=== PATIENT | female | born 1980 | race Caucasian/White ===

== ENCOUNTER 2017-07-05 15:50 | Outpatient (CLI) | payer BC, SELFPAY ==
[2017-06-04 21:39] VITALS: BP 110/70
[2017-07-05 15:30] VITALS: BP 122/75; BMI 33.7
[2017-07-05 16:26] VITALS: BMI 33.7
--- NOTE | 2017-07-06 13:00 | OB.TRI.NOTE ---
History of Present Illness Reason For Visit: R/O LABOR Date of Service: 07/05/17 Gestational age: 32 History of Present Illness: contractions Home Medications Medication Instructions Recorded Aspirin [Aspirin, Baby] 81 mg PO DAILY@0800 05/02/17 1 tab PO QDAY 05/06/17 vitamin,calcium,toraahug-oprk-xetom acid tablet Allergies hydrocodone Allergy (Mild, Verified 07/05/17 16:29) Nausea/Vom/Diarrhea povidone-iodine Allergy (Mild, Verified 07/05/17 16:29) Rash azithromycin [From Zithromax Z-Nadeem] Allergy (Verified 07/05/17 16:29) Upset Stomach Physical Exam Vitals: Vital Signs BP 122/75 H 07/05/17 15:30 NST - FHR Rate Baby A Baseline: 140 Variability:: Moderate Accelerations:: 15 x 15 Decelerations:: Variable NST Reactive:: Yes FHR Category:: Category I Uterine Activity:: q5-12 minutes Impression/Plan bedside gabriella 7.8 cm WNL reactive nst no cervical change or regular ctx recommend labor precautions and fu in office next week
--- NOTE | 2017-07-06 13:13 | OB.TRI.HP_ITS ---
History of Present Illness Reason For Visit: R/O LABOR Date of Service: 07/05/17 Gestational age: 32 History of Present Illness: contractions Home Medications Medication Instructions Recorded Aspirin [Aspirin, Baby] 81 mg PO DAILY@0800 05/02/17 1 tab PO QDAY 05/06/17 vitamin,calcium,xiecaytw-tubu-adedi acid tablet Allergies hydrocodone Allergy (Mild, Verified 07/05/17 16:29) Nausea/Vom/Diarrhea povidone-iodine Allergy (Mild, Verified 07/05/17 16:29) Rash azithromycin [From Zithromax Z-Nadeem] Allergy (Verified 07/05/17 16:29) Upset Stomach Physical Exam Vitals: Vital Signs BP 122/75 H 07/05/17 15:30 NST - FHR Rate Baby A Baseline: 140 Variability:: Moderate Accelerations:: 15 x 15 Decelerations:: Variable NST Reactive:: Yes FHR Category:: Category I Uterine Activity:: q5-12 minutes Impression/Plan bedside gabriella 7.8 cm WNL reactive nst no cervical change or regular ctx recommend labor precautions and fu in office next week
== END 2017-07-05 18:05 | disposition home or self-care (01) ==
LOC: WPOUT 15:58 → WP 15:59
PROVIDERS: Visit Provider Obstetrics & Gynecology
DX: O47.03 False labor before 37 completed weeks of gestation, third trimester (principal); Z3A.32 32 weeks gestation of pregnancy
CPT/HCPCS: 59050; 99218; G0378

== ENCOUNTER 2017-07-09 19:30 | Outpatient (CLI) | payer BC, SELFPAY ==
[2017-07-09 19:44] VITALS: BMI 34.1
[2017-07-09] MEDS: Dextrose 5%-Lactated Ringers 1,000 ML 999 ML IV (19:57)
[2017-07-09] MEDS: Betamethasone/Betamethasone 30 MG/5 ML Vial 12 MG IM (19:57)
[2017-07-09] MEDS: Terbutaline 1 MG/ML Vial 0.25 MG SC (20:22)
[2017-07-09 20:24] LABS: Fetal Fibronectin Negative; Record Kit Lot#, fFN J7025
[2017-07-09] MEDS: Dextrose 5%-Lactated Ringers 1,000 ML 200 ML IV ×2 (20:57→20:59)
[2017-07-09 21:01] LABS: Bacteria 0 SEEN /hpf (None Seen); Mucous, Urine 0 SEEN /hpf (<or=2+); Red Blood Cells-Urine 0 SEEN /hpf (0-5); White Blood Cells 0 SEEN /hpf (0-5)
[2017-07-09 21:02] LABS: Color, Urine Straw (Yellow); Glucose, Dipstick 1000 mg/dl (Normal); Ketone-Dipstick Negative (Negative); Leukocyte Esterase-Dipstick Negative /ul (Negative); Nitrite-Dipstick Negative (Negative); Occult Blood-Urine Negative /ul (Negative); Protein-Dipstick Negative (Negative); Urine Bilirubin Dipstick Negative (Negative); Urine Clarity Clear (Clear); Urine Urobilinogen Normal (Normal)
[2017-07-09 21:09] LABS: Squamous Epithelial Cells - UA 0-5 SEEN /hpf (5-10)
[2017-07-10] MEDS: Dextrose 5%-Lactated Ringers 1,000 ML 200 ML IV (01:53)
--- NOTE | 2017-07-10 06:43 | US_ITS ---
STUDY: SECOND AND THIRD TRIMESTER OBSTETRICAL ULTRASOUND - LIMITED REASON FOR EXAM: Female, 36 years old. Growth. LMP: November 19, 2016. PRIOR ULTRASOUND: April 04, 2017. TECHNIQUE: Transabdominal and transvaginal ultrasound evaluation was performed. FINDINGS: There is a single intrauterine fetus. The fetus is in a cephalic presentation. There is demonstrated cardiac activity with a heart rate of 139 bpm. There is a normal amniotic fluid volume. The largest amniotic fluid pocket measures 7.01 cm. The amniotic fluid index (MARCOS) is 14.6 cm. The placenta is fundal in location. There are Grade 0 placental changes. The cervix measures 4 cm in length. BIOMETRY: BPD: 8.12 cm: 32 weeks, 5 days HC: 31.17 cm: 35 weeks, 0 days AC: 31.06 cm: 35 weeks, 1 days FL: 6.52 cm: 33 weeks, 5 days Age by LMP: 33 weeks, 2 days. WALKER by LMP: August 26, 2017.. age by prior US: 33 weeks, 1 days. WALKER by prior US: August 27, 2017.. age by current US: 34 weeks, 1 days. WALKER by current US: August 20, 2017. Estimated weight: 2414 grams, +/- 352 grams, 75 percentile. US/OB Limited (No Biometrics) IMPRESSION: 1. Live single intrauterine of 34 weeks, 1 day. WALKER is August 20, 2017. This been adequate interval growth since the prior ultrasound. 2. EFW 2414 g. 3. MARCOS of 14.6 cm. 4. Fundal grade 0 placenta. 5. Vertex presentation. Electronically Signed: Saad Schumacher DO at 8:50 EST Tel [phone], Service support ,
[2017-07-10] MEDS: 0.9% NaCl Peripheral Flush Adult/Peds IV (07:10)
--- NOTE | 2017-07-10 19:58 | OB.TRI.NOTE ---
History of Present Illness Date of Service: 07/09/17 Was patient seen by the physician?: Yes Reason For Visit: R/O LABOR Date of Service: 07/09/17 Gestational age: 32 weeks History of Present Illness: 36 yo @ 34 weeks presents with reuglar contractions, no vb or lof, good fm, co diarrhea for a couple of hours. Home Medications Medication Instructions Recorded Aspirin [Aspirin, Baby] 81 mg PO DAILY@0800 05/02/17 1 tab PO QDAY 05/06/17 vitamin,calcium,akzjxpbx-mqfz-fuxqa acid tablet Allergies hydrocodone Allergy (Mild, Verified 07/09/17 20:28) Nausea/Vom/Diarrhea povidone-iodine Allergy (Mild, Verified 07/09/17 20:28) Rash azithromycin [From Zithromax Z-Nadeem] Allergy (Verified 07/09/17 20:28) Upset Stomach - Pertinent Past Medical History Pertinent Past Medical History: see history and problems tab NST - FHR Rate Baby A Baseline: 130-140 Variability:: Moderate Accelerations:: 10 x 10 Decelerations:: None NST Reactive:: Yes, Appropriate for gestational age FHR Category:: Category I Uterine Activity:: q2-5 then none Impression/Plan 36 yo @ 32 weeks presents with threatened ptl sto- no cervical change- 0 cm, recommend bmz since this is her second evaluation in less than a week.
--- NOTE | 2017-07-10 20:02 | OB.TRI.HP_ITS ---
History of Present Illness Date of Service: 07/09/17 Was patient seen by the physician?: Yes Reason For Visit: R/O LABOR Date of Service: 07/09/17 Gestational age: 32 weeks History of Present Illness: 36 yo @ 34 weeks presents with reuglar contractions, no vb or lof, good fm , co diarrhea for a couple of hours. Home Medications Medication Instructions Recorded Aspirin [Aspirin, Baby] 81 mg PO DAILY@0800 05/02/17 1 tab PO QDAY 05/06/17 vitamin,calcium,yxuyyojs-eaxi-rkcgr acid tablet Allergies hydrocodone Allergy (Mild, Verified 07/09/17 20:28) Nausea/Vom/Diarrhea povidone-iodine Allergy (Mild, Verified 07/09/17 20:28) Rash azithromycin [From Zithromax Z-Nadeem] Allergy (Verified 07/09/17 20:28) Upset Stomach - Pertinent Past Medical History Pertinent Past Medical History: see history and problems tab NST - FHR Rate Baby A Baseline: 130-140 Variability:: Moderate Accelerations:: 10 x 10 Decelerations:: None NST Reactive:: Yes, Appropriate for gestational age FHR Category:: Category I Uterine Activity:: q2-5 then none Impression/Plan 36 yo @ 32 weeks presents with threatened ptl sto- no cervical change- 0 cm, recommend bmz since this is her second evaluation in less than a week.
== END 2017-07-10 08:35 | disposition home or self-care (01) ==
LOC: WPOUT 19:42 → WP 19:43
PROVIDERS: Visit Provider Obstetrics & Gynecology
DX: O60.03 Preterm labor without delivery, third trimester (principal); O26.899 Other specified pregnancy related conditions, unspecified trimester; R19.7 Diarrhea, unspecified; Z3A.32 32 weeks gestation of pregnancy
CPT/HCPCS: 96360; 96361 ×10; 59025; 59050; 76815; 81001; 82731; 96372; 99218; A4216; G0378; J0702

== ENCOUNTER 2017-07-10 19:44 | Outpatient (CLI) | payer BC, SELFPAY ==
--- NOTE | 2017-07-10 19:56 | OB.TRI.NOTE ---
History of Present Illness Date of Service: 07/10/17 Reason For Visit: CELESTA SHOT Home Medications Medication Instructions Recorded Aspirin [Aspirin, Baby] 81 mg PO DAILY@0800 05/02/17 1 tab PO QDAY 05/06/17 vitamin,calcium,onmsnsxq-kbbr-lgulr acid tablet Allergies hydrocodone Allergy (Mild, Verified 07/09/17 20:28) Nausea/Vom/Diarrhea povidone-iodine Allergy (Mild, Verified 07/09/17 20:28) Rash azithromycin [From Zithromax Z-Nadeem] Allergy (Verified 07/09/17 20:28) Upset Stomach Impression/Plan celestone shot number two
[2017-07-10 20:01] VITALS: BMI 33.8
[2017-07-10] MEDS: Betamethasone/Betamethasone 30 MG/5 ML Vial 12 MG IM (20:08)
== END 2017-07-10 20:10 | disposition home or self-care (01) ==
LOC: WPOUT 19:44 → WP 19:45
PROVIDERS: Visit Provider Obstetrics & Gynecology
DX: O60.03 Preterm labor without delivery, third trimester (principal); Z3A.32 32 weeks gestation of pregnancy
CPT/HCPCS: 96372; 99218; G0378; J0702

== ENCOUNTER 2017-07-11 22:20 | Emergency (ER) | payer BC, SELFPAY ==
[2017-07-11 22:20] VITALS: BP 137/79; PULSE 78; RESP 18; TEMP 36.5; O2SAT 97; BMI 33.6
--- NOTE | 2017-07-11 22:55 | RAD_ITS ---
STUDY: X-RAY CHEST REASON FOR EXAM: Female, 36 years old. Chest pain TECHNIQUE: Single frontal view COMPARISON: None. FINDINGS: The lungs are clear and expanded. There is no demonstrated pleural abnormality. Prominent cardiac shadow. Normal mediastinum and jose a. Normal visualized pulmonary arteries. Normal visualized aortic arch and descending thoracic aorta. Normal visualized thoracic spine. Normal visualized ribs, clavicles, and shoulders. There is no demonstrated abnormality of the visualized soft tissue structures of the upper abdomen. RAD/Chest 1 View (Portable) IMPRESSION: Normal x-ray examination of the chest. Electronically Signed: Sixto Odom DO at 23:28 EST Tel [phone], Service support ,
--- NOTE | 2017-07-11 22:55 | EKG12_ITS ---
Test Reason : Blood Pressure : / mmHG Vent. Rate : 080 BPM Atrial Rate : 080 BPM P-R Int : 180 ms QRS Dur : 090 ms QT Int : 344 ms P-R-T Axes : 071 078 065 degrees QTc Int : 396 ms Normal sinus rhythm with sinus arrhythmia Normal ECG Confirmed by CAROL WONG, SHEREE ([id number]), health editor JHOAN HELM ([id number]) on 07/12/2017 1:45:21 PM Referred By: BIMAL Confirmed By:SHEREE MEDINA MD
[2017-07-11 23:02] VITALS: BP 117/69; PULSE 76; RESP 19; O2SAT 98
[2017-07-11 23:03] VITALS: O2SAT 98
[2017-07-11] MEDS: 0.9% Normal Saline 1,000 ML 150 ML IV (23:13)
[2017-07-11 23:33] LABS: Absolute Lymphocyte Count 1.37 X10^3/ul (0.83-4.51); Absolute Neutrophil Count 5.1 X10^3/uL (2.0-7.7); Basophil# 0.01 X10^3/uL; Basophil% 0.1 % (0-1); Hematocrit 35.6 % (37-47); Hemoglobin 11.9 g/dl (12.0-15.0); Lymphocyte # 1.37 X10^3/ul (4.0); Lymphocyte % 19.5 % (19-41); Mean Corp Hgb Conc 33.4 g/gl (32-36); Mean Corpuscular Hgb 29.8 pg (27.0-32.0); Mean Platelet Vol. 10.2 fl (6.2-12.0); Monocyte# 0.52 X10^3/uL; Monocyte% 7.4 % (0-10); Neutrophil # 5.11 X10^3/uL (2.7-7.7); Neutrophil % 72.9 % (47-70); Platelet Count 200 K/mm3 (150-450); RBC Distribution Width CV 13.1 % (11.6-14.6); RBC Distribution Width SD 41.2 fl (35.1-43.9)
[2017-07-11 23:36] LABS: POSITIVE COUNT NO; POSITIVE DIFFERENTIAL NO; POSITIVE MORPHOLOGY NO
[2017-07-12 00:01] LABS: Anion Gap 11 (5-15); BUN 13 mg/dL (7-18); BUN/Creat Ratio 24.8 RATIO (10-20); Calcium,Total 9.3 mg/dL (8.5-10.1); Chloride 109 mmol/L (98-107); Creatinine, Serum 0.52 mg/dL (0.55-1.02); EST Glomerular Filtration Rate 141 mL/min (>60); Est Glom Filt Rate - Afr Amer 171 mL/min (>60); Estimated Creatinine Clearance 148.24 ml/min; Glucose 110 mg/dL (74-106); Potassium 3.6 mmol/L (3.5-5.1); Sodium Level 143 mmol/L (136-145)
--- NOTE | 2017-07-12 00:19 | ED.DCSUM_ITS ---
- ER Visit Summary Date of Service: 07/12/17 Chief Complaint: Chest pain History of Present Illness: The patient is a 36 F who is currently 33 weeks . Patient reports having reflux symptoms all day and now has is across her upper chest and feels short of breath. She has no pleuritic pain. She is no prior cardiac history or history of PE. She is feeling appropriate movement. Physical Examination: Vital signs in triage include a blood pressure of 137/79. The time of my examination blood pressure is 118/76. Other vitals are normal. Head and neck examination is unremarkable. Heart is regular rate and rhythm. Lung sounds are clear with good air movement. Abdomen is soft and gravid. Patient has no significant ankle edema. Test Results: EKG is sinus 80 with no sign of acute ischemia. Portable chest x- ray is unremarkable. CBC was a white count that is normal and hemoglobin 11.9. Chemistry studies are unremarkable. Troponin is less than 0.02. Emergency Department Course and Treatment: Patient remained stable throughout her ER stay. On review of records I did note that she had gotten a Celestone shot the last 2 days. On repeat evaluation she is resting comfortably. She now states that her chest pain is corresponding to when she is having contractions. She had not mentioned having contractions previously. She now tells me that she was actually admitted overnight for observation 2 nights ago secondary to Barber Cano contractions. This led them to giving her the steroid shot to help the baby's lungs mature. I spoke with the patient's HURRICANE TRACKER , Dr. Rajesh Miles. Patient will be sent to labor and delivery for nonstress test. Treatment Plan: [] Disposition: Discharge Impression: Atypical chest pain 33 week This note was generated with [employer] dictation software. It may contain incorrect words, spelling, and punctuation that were not noted in review of the chart prior to signing ED Disposition - Plan for ED Patient: Disposition: Home or Assisted Living Chief Complaint: Chest Pain Instructions: ED Chest Pain NonCardiac Referrals: Reyna Farah MD [STAFF PHYSICIAN] -
[2017-07-12 00:36] VITALS: BP 135/85; PULSE 82; RESP 16; O2SAT 98
== END 2017-07-12 00:37 | disposition home or self-care (01) ==
PROVIDERS: Emergency Provider Emergency Medicine
DX: O99.89 Other specified diseases and conditions complicating pregnancy, childbirth and the puerperium (principal); R07.89 Other chest pain; Z3A.33 33 weeks gestation of pregnancy; Z87.891 Personal history of nicotine dependence
CPT/HCPCS: 71045; 80048; 84484; 85025; 93005; 96360; 99284; J7030; A4216

== ENCOUNTER 2017-07-12 00:42 | Outpatient (CLI) | payer BC, SELFPAY ==
[2017-07-12 01:13] VITALS: BMI 34.0
[2017-07-12 01:26] VITALS: BP 136/67; PULSE 66; RESP 16; TEMP 36.6; O2SAT 98
--- NOTE | 2017-07-19 06:35 | OB.TRI.NOTE ---
History of Present Illness Date of Service: 07/12/17 Was patient seen by the physician?: No Reason For Visit: R/O LABOR Date of Service: 07/12/17 Gestational age: 33 weeks History of Present Illness: patient presented with regular ctx and increased pelvic pressure Home Medications Medication Instructions Recorded Aspirin [Aspirin, Baby] 81 mg PO DAILY@0800 05/02/17 1 tab PO QDAY 05/06/17 vitamin,calcium,haspfrem-axiw-ohfvd acid tablet Allergies hydrocodone Allergy (Mild, Verified 07/12/17 01:13) Nausea/Vom/Diarrhea povidone-iodine Allergy (Mild, Verified 07/12/17 01:13) Rash azithromycin [From Zithromax Z-Nadeem] Allergy (Verified 07/12/17 01:13) Upset Stomach Physical Exam Vitals: Vital Signs Temp Pulse Resp BP Pulse Ox 97.8 F 66 16 136/67 H 98 07/12/17 01:26 07/12/17 01:26 07/12/17 01:26 07/12/17 01:26 07/12/17 01:26 NST - FHR Rate Baby A Baseline: 140-150 Variability:: Moderate Accelerations:: 15 x 15 Decelerations:: None NST Reactive:: Yes FHR Category:: Category I Uterine Activity:: q 2-5 and then irregular, irritability Impression/Plan threatened PTL- no cervical change dc home labor precautions
== END 2017-07-12 01:35 | disposition home or self-care (01) ==
LOC: WPOUT 01:05 → WP 01:06
PROVIDERS: Visit Provider Obstetrics & Gynecology
DX: O60.03 Preterm labor without delivery, third trimester (principal); Z3A.33 33 weeks gestation of pregnancy
CPT/HCPCS: 59025; 59050; 99218; G0378

== ENCOUNTER → 2017-08-02 14:25 | Outpatient (CLI) | payer BC, SELFPAY ==
--- NOTE | 2017-08-02 15:03 | US_ITS ---
STUDY: SECOND AND THIRD TRIMESTER OBSTETRICAL ULTRASOUND - LIMITED REASON FOR EXAM: Female, 36 years old. growth. LMP: November 19, 2016. PRIOR ULTRASOUND: OB ultrasound July 10, 2017. TECHNIQUE: Transabdominal and transvaginal ultrasound evaluation was performed. FINDINGS: There is a single intrauterine fetus. The fetus is in a cephalic presentation. There is demonstrated cardiac activity with a heart rate of 143 bpm. There is a normal amniotic fluid volume. The largest amniotic fluid pocket measures 4.9 cm. The amniotic fluid index (MARCOS) is 14.8 cm. The placenta is posterior in location and is not low lying. There are Grade 1 placental changes. The cervix measures 4.42 cm in length and is closed. BIOMETRY: BPD: 8.89 cm 36 weeks, 0 days HC: 32.23 cm: 36 weeks, 3 days AC: 34.11 cm: 38 weeks, 1 days FL: 7.06 cm: 36 weeks, 2 days CI: 80% FL/BPD: 79% FL/AC: 41% HC/AC: 0.94 Age by LMP: 36 weeks, 4 days. WALKER by LMP: August 26, 2017. age by prior US: 37 weeks, 3 days. WALKER by prior US: August 20, 2017. age by current US: 36 weeks, 5 days. WALKER by current US: August 25, 2017. Estimated weight: 3133 grams, +/- 458 grams, 70 percentile. US/OB Limited With Biometrics IMPRESSION: 1. Single living intrauterine fetus in cephalic presentation showing expected interval growth since previous study. 2. Estimated gestational age today is 36 weeks, 5 days, with estimated date of delivery of August 25, 2017. 3. Estimated weight is 3133 g. 4. Normal amniotic fluid volume with an index of 14.8 cm. 5. Grade 1 posterior placenta is not low-lying. 6. The cervix is closed. Cervical length is 4.42 cm. Electronically Signed: Jg Brand MD at 20:09 EST , Service support ,
== END ==
PROVIDERS: Visit Provider Obstetrics & Gynecology
DX: O09.292 Supervision of pregnancy with other poor reproductive or obstetric history, second trimester (principal); Z3A.00 Weeks of gestation of pregnancy not specified; Z87.59 Personal history of other complications of pregnancy, childbirth and the puerperium
CPT/HCPCS: 76816

== ENCOUNTER 2017-08-05 01:32 | Inpatient (IN) | payer BC, SELFPAY ==
[2017-08-04 22:27] VITALS: BMI 35.8
[2017-08-04] MEDS: Sodium Citrate/Citric Acid 30 ML UDC PO (22:59)
[2017-08-05] VITALS (21 sets, daily range): BP systolic 121–148; BP diastolic 33–89; PULSE 53–80; RESP 15–58; TEMP 36.1–36.9; O2SAT 95–100
[2017-08-05] MEDS: Lactated Ringers 1,000 ML 999 ML IV (01:15)
[2017-08-05 01:46] LABS: Hematocrit 36.2 % (37-47); Hemoglobin 12.4 g/dl (12.0-15.0); Mean Corp Hgb Conc 34.3 g/gl (32-36); Mean Corpuscular Hgb 29.3 pg (27.0-32.0); Mean Corpuscular Volume 85.6 fL (81-99); Mean Platelet Vol. 11.6 fl (6.2-12.0); Platelet Count 172 K/mm3 (150-450); RBC Distribution Width CV 12.9 % (11.6-14.6); RBC Distribution Width SD 39.2 fl (35.1-43.9); Red Blood Count 4.23 M/mm3 (4.2-5.4); White Blood Count 6.9 K/mm3 (4.4-11.0)
[2017-08-05 01:50] LABS: International Normalized Ratio 0.9; Prothrombin Time (Protime)PT. 11.9 SECONDS (11.7-14.9)
[2017-08-05 01:51] LABS: Partial Thromboplast Time 21.2 Seconds (24.1-36.2)
[2017-08-05 02:08] LABS: Neutrophil % 68.1 % (47-70); POSITIVE COUNT NO; POSITIVE DIFFERENTIAL NO; POSITIVE MORPHOLOGY NO
[2017-08-05 02:09] LABS: AST(SGOT) 20 U/L (15-37); Absolute Lymphocyte Count 1.62 X10^3/ul (0.83-4.51); Absolute Neutrophil Count 4.6 X10^3/uL (2.0-7.7); Alanine Aminotransfer ALT/SGPT 12 U/L (13-56); Basophil# 0.01 X10^3/uL; Basophil% 0.1 % (0-1); Creatinine, Serum 0.54 mg/dL (0.55-1.02); EST Glomerular Filtration Rate 135 mL/min (>60); Eosinophil# 0.01 X10^3/uL; Eosinophils% 0.1 % (0-5); Est Glom Filt Rate - Afr Amer 164 mL/min (>60); Estimated Creatinine Clearance 142.75 ml/min; Lymphocyte # 1.62 X10^3/ul (4.0); Monocyte# 0.52 X10^3/uL; Monocyte% 7.7 % (0-10); Neutrophil # 4.58 X10^3/uL (2.7-7.7); Uric Acid 5.4 mg/dL (2.6-6.0)
[2017-08-05] MEDS: Lactated Ringers 1,000 ML 150 ML IV (02:44)
--- NOTE | 2017-08-05 03:07 | PCM.HP.OB ---
- Problem List (1) Gestational hypertension Status: Acute (2) Active labor at term Status: Acute History Date of Admission: 08/05/17 Final WALKER: 08/26/17 Gestational age: 37 Weeks and 0 Days History of this : 36 yo G Pertinent Past Medical History: PMH: negative PSH: csection x 3 prenatals: Hep B neg rpr nr cbc normal RI HIV neg Allergies hydrocodone Allergy (Mild, Verified 08/04/17 22:28) Nausea/Vom/Diarrhea povidone-iodine Allergy (Mild, Verified 08/04/17 22:28) Rash azithromycin [From Zithromax Z-Nadeem] Allergy (Verified 08/04/17 22:28) Upset Stomach Current Medications Citric Acid/Sodium Citrate (Bicitra) 30 ml PO UD MARGARETTE Lactated Ringer's () 1,000 mls @ 150 mls/hr IV .Q6H40M MARGARETTE Last Admin: 08/05/17 02:44 Dose: 150 mls/hr Lactated Ringer's () 1,000 mls @ 999 mls/hr IV .Q1H1M MARGARETTE PRN Reason: Wide Open Stop: 08/05/17 03:35 Sodium Chloride () 0 ml IV UD MARGARETTE Smoking Status: Never smoker Alcohol: None Drug Use: none Number of Fetus(es): 1 - fht 140s moderate variability toco q2-4 Review of Systems Constitutional: Denies: Chills, Fever, Weight Change HEENT: Denies: Head Aches, Sinus Congestion, Sinus Drainage Cardiovascular: Denies: Chest Pain, Palpitations Respiratory: Denies: Cough, Sputum production Gastrointestinal: Reports: Abdominal Pain. Denies: Nausea, Vomiting Genitourinary: Denies: Dysuria Musculoskeletal: Denies: Joint Pain, Joint Tenderness Skin: Denies: Rash, Wounds Neurological: Denies: Numbness, Tingling, Focal weakness Psychiatric: Denies: Anxiety, Depression, Homicidal Ideations, Suicidal Ideations Hematologic/ Lymphatic: Denies: Easy Bruising, Easy Bleeding Physical Exam General: Alert, Oriented x3, No apparent distress Cardiovascular: Regular rate Lungs: Normal air movement Abdomen: Soft, Gravid, Appropriate for Gestational Age Estimated gestational size: Appropriate for gestational size Presentation: Cephalic Cervix Dilation (cm): 1 Station: -2 Effacement (%): 50 Assessment/Plan Active and Suspected Problems (Last Reviewed 07/29/17 @ 08:06 by Elham Reynaga) Gestational hypertension (Acute) Active labor at term (Acute) 36 yo 37 weeks IAL GHTN elevated bps- normal labs. regular ctx and uncomfortable. plan repeat csection now.
[2017-08-05] MEDS: Sodium Citrate/Citric Acid 30 ML UDC PO (03:33)
--- NOTE | 2017-08-05 03:43 | OP.PCM_ITS ---
Problem List (1) Gestational hypertension Status: Acute (2) Active labor at term Status: Acute Report of Operation Date of Procedure: 08/05/17 Pre-Operative Diagnosis: ial ghtn previous cs x 3 Surgery/Procedure Performed:: RLTCS Description of Surgical Findings:: Normal scar tissue normal uterus tubes and ovaries drafter apprentice: Shilpa Gutierrez Type of Anesthesia:: Spinal Specimen's removed: female infant in vertex presentation Drains: recinos Estimated Blood Loss (mL): 800 Fluids Replaced: crystalloid Description of Procedure: The patient is a presented at 37 weeks with regular contractions the blood pressures with history of 3 previous C-sections declining wanting a repeat . Spinal anesthesia was placed without difficulty. Recinos catheter was placed. The patient was placed in the dorsal supine position with leftward tilt. Patient was prepped and draped in the normal sterile fashion. Pfannenstiel skin incision was made with the scalpel and carried through to the underlying layer of fascia with the scalpel. Fascia was nicked in the midline and the incision extended laterally. The rectus bellies were dissected off superiorly and inferiorly with out complication both sharply and bluntly. The peritoneum was entered digitally. The incision was stretched and a low transverse uterine incision was made with the scalpel. The 's head was delivered atraumatically followed by the anterior and posterior shoulders without complication the rest of the infant delivered. The cord was clamped and cut and the infant was handed off to awaiting nurse. The placenta was delivered spontaneously immediately following and was noted to be intact and have a three-vessel cord. The uterus was exteriorized cleared of all clots and debris, and the incision was closed in a single layer closure using #1 Monocryl. An additional djzuun-hb-qwzac suture was placed on the right ankle to obtain hemostasis. The uterus was returned to the maternal abdomen and gutters were cleared of all clots and debris. The ovaries and fallopian tubes were noted to be within normal limits. The peritoneum was closed with 3-0 Monocryl in a running fashion. Alexis was placed over the inferior aspect of the rectus bellies over the pyramidalis muscle due to some superficial raw appearance. Excellent hemostasis was noted. Fascia was closed with 0 PDS in a running fashion. Subcutaneous tissue was copiously irrigated and the skin was closed with 3-0 Monocryl in a subcuticular fashion. Mepilex dressing was applied without complication. Patient was taken to recovery in stable condition. Grafts/Implants Used: none - Complications none
[2017-08-05] MEDS: Cefazolin 2 GM in 0.9% Normal Saline 100 ML IV (03:50)
[2017-08-05] MEDS: Oxytocin 30 units/NS 500 ml 30 UNITS/500 ML IV.SOLN 167 UNITS IV (04:12)
[2017-08-05 04:36] LABS: Protein, Urine (Random) 24.6 mg/dL (<11.9); Protein:Creat Ratio 284 mg/g CRE (0-200)
[2017-08-05] MEDS: Lactated Ringers 1,000 ML 100 ML IV ×2 (05:00→07:17)
[2017-08-05] MEDS: Ketorolac 30 MG/ML Syringe IV ×3 (06:08→17:50)
[2017-08-05] MEDS: 0.9% Saline Lock 10 ML Syringe IV (06:08)
[2017-08-05] MEDS: Senna/Docusate Sodium 1 Tablet PO (10:45)
--- NOTE | 2017-08-05 13:20 | NURSING ---
1200 pt oob up to chair pt gait steady pt tolerated well
--- NOTE | 2017-08-05 16:15 | NURSING ---
pt up to walk
[2017-08-05] MEDS: Prenatal Vits Tablet 1 TABLET PO (17:51)
[2017-08-06] VITALS: BP 141/89; PULSE 65; RESP 18; TEMP 36.4; O2SAT 96
[2017-08-06 02:00] VITALS: RESP 16; O2SAT 94
[2017-08-06 04:15] VITALS: BP 124/89; PULSE 101; RESP 18; TEMP 36.4; O2SAT 97
[2017-08-06] MEDS: Acetaminophen 500 MG Tablet 1000 MG PO (04:41)
[2017-08-06 04:43] LABS: Hemoglobin 11.1 g/dl (12.0-15.0); Mean Corp Hgb Conc 33.6 g/gl (32-36); Mean Corpuscular Hgb 29.4 pg (27.0-32.0); Mean Corpuscular Volume 87.5 fL (81-99); Mean Platelet Vol. 10.1 fl (6.2-12.0); Platelet Count 160 K/mm3 (150-450); RBC Distribution Width CV 13.2 % (11.6-14.6); RBC Distribution Width SD 40.1 fl (35.1-43.9); Red Blood Count 3.77 M/mm3 (4.2-5.4); White Blood Count 8.2 K/mm3 (4.4-11.0)
[2017-08-06 04:50] LABS: Scan Indicated on CBC? Y/N NO
[2017-08-06] MEDS: Ketorolac 30 MG/ML Syringe IV ×2 (06:01)
[2017-08-06] MEDS: 0.9% Saline Lock 10 ML Syringe IV ×2 (06:01)
--- NOTE | 2017-08-06 08:12 | PCM.PN.OB ---
Patient Problems: Active and Suspected Problems (Last Reviewed 07/29/17 @ 08:06 by Elham Reynaga) Gestational hypertension (Acute) Active labor at term (Acute) Subjective: doing well no complaints, pain controlled - Physical Exam General: Alert, Oriented x3 Vital Signs Temp Pulse Resp BP Pulse Ox 97.6 F L 101 H 18 124/89 H 97 08/06/17 04:15 08/06/17 04:15 08/06/17 04:15 08/06/17 04:15 08/06/17 04:15 Oxygen Delivery Method Room Air Weight: 228 lb 13.437 oz Body Mass Index (BMI) 35.8 Intake and Output for Last 24 Hours 08/04/17 08/05/17 08/06/17 23:59 23:59 23:59 Intake Total 5375 / 5375 Output Total 1900 / 1900 Balance 3475 / 3475 Laboratory Tests Past 24 Hrs 08/06/17 04:35 WBC 8.2 RBC 3.77 L Hgb 11.1 L Hct 33.0 L MCV 87.5 MCH 29.4 MCHC 33.6 RDW 13.2 RDW Differential 40.1 Plt Count 160 MPV 10.1 Assessment/Plan Active and Suspected Problems (Last Reviewed 07/29/17 @ 08:06 by Elham Reynaga) Gestational hypertension (Acute) Active labor at term (Acute) s/p RLTCS GHTN IAL routine care doing well, mildly elevated bp continue to monitor
[2017-08-06] MEDS: Senna/Docusate Sodium 1 Tablet PO (09:10)
[2017-08-06] MEDS: oxyCODONE 5 MG Tablet PO ×4 (09:10→21:00)
[2017-08-06] MEDS: Prenatal Vits Tablet 1 TABLET PO (09:10)
[2017-08-06 10:00] VITALS: BP 124/65; PULSE 80; RESP 16; TEMP 36.6
[2017-08-06] MEDS: Naproxen 250 MG Tablet PO ×2 (14:16→23:39)
[2017-08-06 18:00] VITALS: BP 124/74; PULSE 91; RESP 16; TEMP 37
[2017-08-06 20:50] VITALS: BP 133/88; PULSE 73; RESP 18; TEMP 36.8; O2SAT 98
[2017-08-07 03:30] VITALS: BP 148/91; PULSE 85; RESP 18; TEMP 36.5; O2SAT 98
[2017-08-07] MEDS: oxyCODONE 5 MG Tablet PO ×5 (03:46→23:12)
[2017-08-07 09:20] VITALS: BP 135/67; PULSE 80; RESP 20; TEMP 36.8; O2SAT 98
[2017-08-07] MEDS: Senna/Docusate Sodium 1 Tablet PO (09:32)
--- NOTE | 2017-08-07 10:28 | PCM.PN.OB ---
Patient Problems: Active and Suspected Problems (Last Reviewed 07/29/17 @ 08:06 by Elham Reynaga) Gestational hypertension (Acute) Active labor at term (Acute) Subjective: doing welln ocomplaints - Physical Exam General: Alert, Oriented x3 Vital Signs Temp Pulse Resp BP Pulse Ox 97.7 F L 85 18 148/91 H 98 08/07/17 03:30 08/07/17 03:30 08/07/17 03:30 08/07/17 03:30 08/07/17 03:30 Oxygen Delivery Method Room Air Weight: 228 lb 13.437 oz Body Mass Index (BMI) 35.8 Intake and Output for Last 24 Hours 08/05/17 08/06/17 08/08/17 23:59 23:59 00:59 Intake Total 5375 / 5375 Output Total 1900 / 1900 600 / 600 Balance 3475 / 3475 -600 / -600 Assessment/Plan Active and Suspected Problems (Last Reviewed 07/29/17 @ 08:06 by Elham Reynaga) Gestational hypertension (Acute) Active labor at term (Acute) s/p RLTCS GHTN IAL routine care doing well, mildly elevated bp continue to monitor
[2017-08-07] MEDS: Naproxen 250 MG Tablet PO ×2 (11:18→21:16)
[2017-08-07] MEDS: Prenatal Vits Tablet 1 TABLET PO (11:18)
[2017-08-07 15:55] VITALS: BP 118/79; PULSE 77; RESP 20; TEMP 36.9; O2SAT 98
[2017-08-07 20:00] VITALS: BP 143/91; PULSE 76; RESP 15; TEMP 37.1; O2SAT 99
[2017-08-08 02:00] VITALS: PULSE 70; RESP 17; TEMP 37.2
[2017-08-08] MEDS: oxyCODONE 5 MG Tablet PO ×2 (03:07→08:22)
[2017-08-08 08:00] VITALS: BP 131/89; PULSE 78; RESP 16; TEMP 36.9; O2SAT 98
--- NOTE | 2017-08-08 08:07 | DCINST_ITS ---
Discharge Diet: No Restrictions Discharge Activity: May Not Drive - for 2 weeks, May not drive while taking narcotic pain medications., May Shower, May Take a Tub Bath - in 7 days May resume sexual activity in: 4-6 weeks Lifting Restrictions: 20 pounds Additional Activity Instructions:: Nothing in the vagina for 4-6 weeks. You may return to work/school in 6 weeks. Call your doctor if your incision/area has: Continuous Slow Oozing, Sudden Increased Bleeding, Increased Pain/ Swelling, Increased Redness, Foul Smelling Discharge Call your doctor if you observe: Fever of 101 or Higher, Using more than one pad per hour - for 2 hours Suture Line Care: Avoid Pulling/Pushing, Avoid Pinching/Bending Cleanse incision/area with: Keep Dressing Clean & Dry Additional Instructions: If you experience any of the following, contact your healthcare provider. * Bleeding that soaks a pad every hour for 2 hours * Fever 100.4 or higher * Unrelieved incision or abdominal pain * Swelling, redness, discharge or bleeding from your incision or episiotomy site * Your incision begins to separate * Problems urinating (including inability to urinate or burning while urinating) . * Visual changes * Severe headache * Flu-like symptoms * Pain or redness in one of both of your breasts * Pain, warmth, tenderness or swelling in your legs, especially the calf area * Frequent nausea and vomiting * Symptoms of depression or anxiety If you experience any of the following, call 911 or go to the nearest Emergency Room. * Chest pain * Problems breathing * Seizure activity * Partial or complete paralysis of a body part, slurred speech, weakness or drooping of the face, or a sudden inability to walk or hold your balance Allergies/Adverse Reactions: Allergies hydrocodone Allergy (Mild, Verified 08/04/17 22:28) Nausea/Vom/Diarrhea povidone-iodine Allergy (Mild, Verified 08/04/17 22:28) Rash azithromycin [From Zithromax Z-Nadeem] Allergy (Verified 08/04/17 22:28) Upset Stomach Medications to take at Discharge vitamin,calcium,ujtwhpfy-zghs-igzmg acid tablet 1 tab PO QDAY 05/06/17 Ibuprofen [Motrin] 600 mg PO Q6H PRN PRN #30 tab 08/08/17 Naproxen [Naprosyn] 250 - 500 mg PO Q8H PRN PRN #30 tab 08/08/17 Oxycodone HCl/Acetaminophen [Percocet 5-325] 2 tablet PO Q4H PRN PRN 7 Days #28 tablet 08/08/17 The following prescriptions were given: Oxycodone HCl/Acetaminophen [Percocet 5-325] 2 tablet PO Q4H PRN PRN 7 Days #28 tablet PRN Reason: Moderate-Severe pain Ibuprofen [Motrin] 600 mg PO Q6H PRN PRN #30 tab PRN Reason: Pain Naproxen [Naprosyn] 250 - 500 mg PO Q8H PRN PRN #30 tab PRN Reason: MILD PAIN Orders to be completed after discharge: Electric breast pump Location: None Selected Follow-Up: Call to make an appointment with your doctor for an incision check in 1-2 weeks. You will also need a 6 week post- follow up appointment. Please Follow Up With: Reyna Farah MD - Call to make an appointment for an incision check in 1-2 [phone] When: You will need a post- check in 6 weeks. Primary Care Physician: Care Physician,No Primary [Primary Care Provider] -
[2017-08-08] MEDS: Senna/Docusate Sodium 1 Tablet PO (08:22)
[2017-08-08 09:30] VITALS: BP 131/89; PULSE 78; RESP 16; TEMP 36.9; O2SAT 98
--- NOTE | 2017-08-11 08:23 | PCM.DC.BLA ---
Discharge Summary Date of Admission: 08/05/17 Date of Discharge: 08/08/17 Summary: Discharge diagnosis: Repeat Procedure: [facility] Hospital course: Patient was admitted for a repeat low transverse secondary to gestational hypertension new onset and regular contractions with 3 previous C-sections. Patient underwent a uncomplicated and routine recovery with a return of bowel and bladder function. She was ambulating well, tolerating p.o. and had adequate pain control with oral medications and was stable for discharge to home on postop day #3. Discharge instructions: Routine post instructions Discharge medications: Motrin, Percocet Diet: Regular Follow-up: Follow-up in 2 weeks for incision check in 6 weeks for visit Complications: None
== END 2017-08-08 09:30 | disposition home or self-care (01) | DRG 766 ==
LOC: WPOUT 01:37
PROVIDERS: Admitting Provider Obstetrics & Gynecology; Visit Provider Obstetrics & Gynecology
DX: O34.211 Maternal care for low transverse scar from previous cesarean delivery (principal); K21.9 Gastro-esophageal reflux disease without esophagitis; O13.4 Gestational [pregnancy-induced] hypertension without significant proteinuria, complicating childbirth; O99.62 Diseases of the digestive system complicating childbirth; Z37.0 Single live birth; Z3A.37 37 weeks gestation of pregnancy
CPT/HCPCS: 59025; 59050; 82565; 82570; 84156; 84450; 84460; 84550; 85025; 85027; 85610; 85730; 86850; 86900; 99218; J7120; A4216; G0378

== ENCOUNTER 2017-10-08 10:37 | Outpatient (CLI) | payer BC, SELFPAY | END 2017-10-08 11:05 | disposition home or self-care (01) | LOC: WPOUT 10:38 → WP 10:40 | PROVIDERS: Visit Provider Obstetrics & Gynecology | DX: Z39.1 Encounter for care and examination of lactating mother (principal) | CPT/HCPCS: 96152 ==

== ENCOUNTER 2017-10-19 10:28 | Outpatient (CLI) | payer BC, SELFPAY | END 2017-10-19 10:45 | disposition home or self-care (01) | LOC: WPOUT 10:29 → WP 10:29 | PROVIDERS: Visit Provider Obstetrics & Gynecology | DX: Z39.1 Encounter for care and examination of lactating mother (principal) | CPT/HCPCS: 96152 ==

== ENCOUNTER 2018-04-27 10:26 | Day surgery (SDC) | payer BC, SELFPAY ==
[2018-04-27] VITALS (7 sets, daily range): BP systolic 98–123; BP diastolic 58–81; PULSE 59–91; RESP 16; TEMP 36.4–36.8; O2SAT 59–100; BMI 28.8
--- NOTE | 2018-04-27 05:39 | PCM.HP.STD ---
Problem List (1) Edilberto duct, cyst Status: Chronic Comment: plan removal History of Present Illness Date of Admission: 04/27/18 Chief Complaint: vaginal cyst The patient is a 37 year old F presents for removal of vaginal edilberto's duct cyst. she has had it present for years on the left vaginal wall and is ready to have it removed now. she has vaginal discomfort from it intermittently and does have some chronic discharge from it also. Past Medical History Past Medical History (Chronic Problems): Chronic Problems (Last Reviewed 02/08/18 @ 11:58 by Sachi Canales) Edilberto duct, cyst (Chronic) plan removal Medical History: Medical History (Last Reviewed 02/08/18 @ 11:58 by Sachi Canales) Allergies povidone-iodine Allergy (Mild, Verified 04/21/18 09:00) Rash hydrocodone Adverse Reaction (Mild, Verified 04/21/18 09:01) Nausea/Vom/Diarrhea azithromycin [From Zithromax Z-Nadeem] Adverse Reaction (Verified 04/26/18 07:37) Upset Stomach Home Medications: Ambulatory Orders Medication Instructions Recorded NK 02/08/18 Surgical History: Surgical History (Last Reviewed 02/08/18 @ 11:58 by Sachi Canales) History of appendectomy Z90.49 ankle surgery knee Smoking Status: Former smoker Tobacco Use: Non-smoker Alcohol: None Drugs: None Review of Systems Constitutional: Denies: Fever, Malaise Eyes: Denies: Blurred vision, Vision Change HEENT: Denies: Head Aches, Visual Changes Cardiovascular: Denies: Chest Pain, Palpitations Respiratory: Denies: Cough, Shortness of Breath, Wheezing Gastrointestinal: Denies: Abdominal Pain, Diarrhea, Nausea, Vomiting Genitourinary: Denies: Dysuria, Hematuria Musculoskeletal: Denies: Joint Pain, Muscle pain Skin: Denies: Lesions, Rash Neurological: Denies: Blurred vision, Focal weakness, Headaches Psychiatric: Denies: Anxiety, Depression Endocrine: Denies: Heat/ Cold Intolerance Hematologic/ Lymphatic: Denies: Easy Bruising, Easy Bleeding VTE Information - Inpt Only VTE Present on Admission: No - Physical Exam General: Alert, Oriented x3 HEENT: Atraumatic, Normocephalic Oral: Moist Mucosa Neck: Supple, Thyroid Normal Size and Texture Lungs: Normal air movement Cardiovascular: Regular rate, Regular Rhythm Abdomen: Soft, Non Tender Extremities: No edema Skin: No rashes, No breakdown 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 discussed risks of bleeding or infection. plan proceeding with surgery.
[2018-04-27 10:56] LABS: Internal QC Validated? YES +Cl - CLEAR BKGD; Pregnancy, Urine Negative Negative
[2018-04-27 11:03] LABS: Hematocrit 44.7 % (37-47); Hemoglobin 14.8 g/dl (12.0-15.0); Mean Corp Hgb Conc 33.1 g/gl (32-36); Mean Corpuscular Hgb 29.1 pg (27.0-32.0); Mean Platelet Vol. 9.7 fl (6.2-12.0); Platelet Count 236 K/mm3 (150-450); RBC Distribution Width CV 12.5 % (11.6-14.6); Red Blood Count 5.08 M/mm3 (4.2-5.4)
[2018-04-27 11:06] LABS: Scan Indicated on CBC? Y/N NO
--- NOTE | 2018-04-27 12:00 | VAGW_PTH ---
PATIENT: ALAN COLUNGA LOC: [facility] [place] U#:[id number] AGE/SX: 37/F ROOM: RE04/27/[address]: Dr. 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 SJ:sophie 05/01/18 COMMENT Case has been reviewed in consultation with Dr. Cates who concurs with the above diagnosis. IDC:AM MICROSCOPIC DESCRIPTION Slides are reviewed. GROSS DESCRIPTION Received in fixative is one container labeled with the patient's name and designated lateral vaginal cyst wall. The specimen consists of four variable sized pieces of fermin soft tissue measuring in aggregate 3.5 x 2.5 x 0.5 cm. The largest piece is serially sectioned. The entire specimen is submitted in two cassettes. / SJ:rg 04/28/18 TC:5 CPT: 74615
--- NOTE | 2018-04-27 12:43 | PCM.OPRPT ---
Problem List (1) Edilberto duct, cyst Status: Chronic Comment: plan removal Report of Operation Date of Procedure: 04/27/18 Pre-Operative Diagnosis: edilberto's duct cyst Post-Operative Diagnosis: same Surgery/Procedure Performed:: removal of edilberto's duct cyst Description of Surgical Findings:: left collapsed edilberto's duct cyst maintenance department manager: Shilpa Gutierrez maintenance department manager: Junie Hennessy Type of Anesthesia:: General Specimen's removed: edilberto's duct cyst Drains: recinos Estimated Blood Loss (mL): 150 Fluids Replaced: crystalloid Description of Procedure: patient placed under general anesthesia. she was prepped and draped in the usual sterile fashion in the dorsal supine position. left cyst was identified and the area injected iwth marcaine, and then longitudinal vaginal incision was made and the edilberto's duct cyst wall was sharply and bluntly dissected away from the vaginal side wall. recinos catheter in place to maintain good anatomic landmarks. after the cyst wall was rmoved as completley as possible, the defect was closed with figure of 8 2-0 vicryl sutures and the vaginal mucosa reapporximated with 2-0 vicryl. patient was awoken and taken to recovery with the cath removed. Grafts/Implants Used: none - Complications none - Admit VTE Documentation VTE Present on Admission: No VTE Mechan Device Prophylaxis: SCD's VTE Pharm Prophylaxis ordered?: No
--- NOTE | 2018-04-27 12:47 | DCINST_ITS ---
Discharge Diet: No Restrictions Discharge Activity: Return to Normal Activity, May Shower May resume sexual activity in: 4-6 weeks Allergies/Adverse Reactions: Allergies povidone-iodine Allergy (Mild, Verified 04/21/18 09:00) Rash hydrocodone Adverse Reaction (Mild, Verified 04/21/18 09:01) Nausea/Vom/Diarrhea azithromycin [From Zithromax Z-Nadeem] Adverse Reaction (Verified 04/26/18 07:37) Upset Stomach Medications to take at Discharge Naproxen [Naprosyn] 250 - 500 mg PO Q8H PRN PRN #30 tablet 04/27/18 The following prescriptions were given: Naproxen [Naprosyn] 250 - 500 mg PO Q8H PRN PRN #30 tablet PRN Reason: MILD PAIN Orders to be completed after discharge: ,Urine Time Frame: 04/27/18, Location: Laboratory Primary Care Physician: Care Physician,No Primary [Primary Care Provider] - Test Results: Test results from this visit will be discussed in further detail at your follow- up appointment, if applicable. Please Follow Up With: Reyna Farah MD - [phone]
[2018-04-27] MEDS: Bupiv/Epi 0.5% Mpf 30 ML Vial (12:53)
--- OUTSIDE RECORDS SUMMARY | 2018-06-22 12:28 | XMS RPT_ITS ---
:1980 Author Organization [facility] Support Name Relationship Address Phone [facility] [place] Unavailable [address] + [place] [address] JANIS PRESSLEY Unavailable [address] + [place] [address] JMSM Unavailable [address] + [place] [address] JANIS PRESSLEY Unavailable [address] + [place] [address] JANIS PRESSLEY Unavailable [address] + [place] [address] JANIS PRESSLEY Unavailable [address] + [place] [address] JANIS PRESSLEY Unavailable [address] + [place] [address] JMSM Unavailable [address] + [place] [address] JANIS PRESSLEY Unavailable [address] + [place] [address] JMSM Unavailable [address] + [place] [address] JANIS PRESSLEY Unavailable [address] + [place] [address] JMSM Unavailable [address] + [place] [address] JANIS PRESSLEY Unavailable [address] + [place] [address] JMSM Unavailable [address] + [place] [address] JANIS PRESSLEY Unavailable [address] + [place] [address] JMSM Unavailable [address] + [place] [address] JANIS PRESSLEY Unavailable [address] + [place] [address] JMSM Unavailable [address] + [place] [address] JANIS PRESSLEY Unavailable [address] + [place] [address] JMSM Unavailable [address] + [place] [address] JNAIS PRESSLEY Unavailable [address] + [place] [address] JMSM Unavailable [address] + [place] [address] JANIS PRESSLEY Unavailable [address] + [place] [address] JMSM Unavailable [address] + [place] [address] JANIS PRESSLEY Unavailable [address] + [place] [address] JMSM Unavailable [address] + [place] [address] JANIS PRESSLEY Unavailable [address] + [place] [address] JMSM Unavailable [address] + [place] [address] JANIS PRESSLEY Unavailable [address] + [place] [address] JMSM Unavailable [address] + [place] [address] JANIS PRESSLEY Unavailable [address] + [place] [address] JMSM Unavailable [address] + [place] [address] JANIS PRESSLEY Unavailable [address] + [place] [address] JMSM Unavailable [address] + [place] [address] JANIS PRESSLEY Unavailable [address] + [place] [address] JMSM Unavailable [address] + [place] [address] JANIS PRESSLEY Unavailable [address] + [place] [address] JMSM Unavailable [address] + [place] [address] JANIS PRESSLEY Unavailable [address] + [place] [address] JMSM Unavailable [address] + [place] [address] JANIS PRESSLEY Unavailable [address] + [place] [address] JMSM Unavailable [address] + [place] [address] JANIS PRESSLEY Unavailable [address] + [place] [address] JMSM Unavailable [address] + [place] [address] JANIS PRESSLEY Unavailable [address] + [place] [address] JMSM Unavailable [address] + [place] [address] JANIS PRESSLEY Unavailable [address] + [place] [address] JMSM Unavailable [address] + [place] [address] JANIS PRESSLEY Unavailable [address] + [place] [address] JMSM Unavailable [address] + [place] [address] JANIS PRESSLEY Unavailable [address] + [place] [address] JMSM Unavailable [address] + [place] [address] JANIS PRESSLEY Unavailable [address] + [place] [address] JMSM Unavailable [address] + [place] [address] JANIS PRESSLEY Unavailable [address] + [place] [address] JMSM Unavailable [address] + [place] [address] JANIS PRESSLEY Unavailable [address] + [place] [address] JMSM Unavailable [address] + [place] [address] JANIS PRESSLEY Unavailable [address] + [place] [address] JMSM Unavailable [address] + [place] [address] JANIS PRESSLEY Unavailable [address] + [place] [address] JMSM Unavailable [address] + [place] [address] JANIS PRESSLEY Unavailable [address] + [place] [address] JMSM Unavailable [address] + [place] [address] JANIS PRESSLEY Unavailable [address] + [place] [address] JMSM Unavailable [address] + [place] [address] JANIS PRESSLEY Unavailable [address] + [place] [address] JMSM Unavailable [address] + [place] [address] JANIS PRESSLEY Unavailable [address] + [place] [address] JMSM Unavailable [address] + [place] [address] JANIS PRESSLEY Unavailable [address] + [place] [address] JMSM Unavailable [address] + [place] [address] JANIS PRESSLEY Unavailable [address] + [place] [address] JMSM Unavailable [address] + [place] [address] PAULA PRESSLEYNATHAN Unavailable [address] + [place] [address] Care Team Providers Name Role Phone NO PRIMARY CARE, MD Primary Care Unavailable ALTON GRAFF Attending Unavailable REYNA PRADO Referring Unavailable NO PRIMARY CARE, Primary Care Unavailable JESSI SAAVEDRA Attending Unavailable JESSI SAAVEDRA Referring Unavailable NO PRIMARY CARE, Primary Care Unavailable ALTON GRAFF Attending Unavailable RAJESHANTHREYNA VERAS Referring Unavailable MIGNONROWKERMIT Attending Unavailable KERMIT WEST Referring Unavailable Marcanthony, Reyna Attending Unavailable MarcanthonyReyna Attending Unavailable Primay Care Physicia, No Referring Unavailable Nicola Arroyo Attending Unavailable Primay Care Physicia, No Referring Unavailable Primay Care Physicia, No Primary Care Unavailable MarcanthonyReyna Attending Unavailable Primay Care Physicia, No Referring Unavailable Primay Care Physicia, No Primary Care Unavailable MarcanthonyReyna Attending Unavailable Primay Care Physicia, No Primary Care Unavailable MarcanthonyReyna Attending Unavailable MarcanthonyReyna Referring Unavailable Primay Care Physicia, No Primary Care Unavailable MarcanthonyReyna Attending Unavailable Primay Care Physicia, No Referring Unavailable Fred Clemente Attending Unavailable Primay Care Physicia, No Referring Unavailable Primay Care Physicia, No Primary Care Unavailable Deedee Weller Attending Unavailable Primay Care Physicia, No Referring Unavailable Primay Care Physicia, No Primary Care Unavailable MarcanthonyReyna Attending Unavailable MarcanthonyReyna Referring Unavailable Primay Care Physicia, No Primary Care Unavailable MarcanthonyReyna Attending Unavailable MarcanthonyReyna Referring Unavailable Primay Care Physicia, No Primary Care Unavailable MarcanthonyReyna Consulting Unavailable MarcanthonyReyna Attending Unavailable Primay Care Physicia, No Primary Care Unavailable MarcanthReyna veras Attending Unavailable Primay Care Physicia, No Primary Care Unavailable MarcanthonyReyna Attending Unavailable Primay Care Physicia, No Primary Care Unavailable MarcanthonyReyna Consulting Unavailable Primay Care Physicia, No Primary Care Unavailable Jose, Mila Attending Unavailable Marcanthony, Reyna Attending Unavailable Primay Care Physicia, No Primary Care Unavailable Marcanthony, Reyna Attending Unavailable Primay Care Physicia, No Referring Unavailable Primay Care Physicia, No Primary Care Unavailable Marcanthony, Reyna Attending Unavailable Primay Care Physicia, No Referring Unavailable Marcanthony, Reyna Attending Unavailable Primay Care Physicia, No Primary Care Unavailable Marcanthony, Reyna Consulting Unavailable Marcanthony, Reyna Attending Unavailable Primay Care Physicia, No Referring Unavailable Primay Care Physicia, No Primary Care Unavailable Marcanthony, Reyna Attending Unavailable Marcanthony, Reyna Referring Unavailable Primay Care Physicia, No Primary Care Unavailable Marcanthony, Reyna Attending Unavailable Primay Care Physicia, No Referring Unavailable Primay Care Physicia, No Primary Care Unavailable Marcanthony, Reyna Attending Unavailable Primay Care Physicia, No Primary Care Unavailable Marcanthony, Reyna Admitting Unavailable Marcanthony, Reyna Admitting Unavailable Marcanthony, Reyna Attending Unavailable Primay Care Physicia, No Primary Care Unavailable Marcanthony, Reyna Consulting Unavailable Marcanthony, Reyna Attending Unavailable Primay Care Physicia, No Referring Unavailable Marcanthony, Reyna Admitting Unavailable Marcanthony, Reyna Attending Unavailable Primay Care Physicia, No Primary Care Unavailable Marcanthony, Reyna Consulting Unavailable Marcanthony, Reyna Admitting Unavailable Marcanthony, Reyna Attending Unavailable Primay Care Physicia, No Primary Care Unavailable Marcanthony, Reyna Consulting Unavailable Marcanthony, Reyna Admitting Unavailable Marcanthony, Reyna Attending Unavailable Primay Care Physicia, No Primary Care Unavailable Marcanthony, Reyna Consulting Unavailable Marcanthony, Reyna Attending Unavailable Primay Care Physicia, No Referring Unavailable Primay Care Physicia, No Primary Care Unavailable Marcanthony, Reyna Attending Unavailable Primay Care Physicia, No Referring Unavailable Primay Care Physicia, No Primary Care Unavailable Marcanthony, Reyna Attending Unavailable Marcanthony, Reyna Referring Unavailable Primay Care Physicia, No Primary Care Unavailable Marcanthony, Reyna Attending Unavailable Marcanthony, Reyna Referring Unavailable Primay Care Physicia, No Primary Care Unavailable Leonid Mcclellan Attending Unavailable Primay Care Physicia, No Referring Unavailable Fred Clemente Attending Unavailable Primay Care Physicia, No Referring Unavailable Primay Care Physicia, No Primary Care Unavailable Reyna Prado Attending Unavailable Primay Care Physicia, No Referring Unavailable Primay Care Physicia, No Primary Care Unavailable Reyna Prado Attending Unavailable Reyna Prado Referring Unavailable Primay Care Physicia, No Primary Care Unavailable PROBLEMS PROBLEMS DATE TYPE CONDITION / CODE ATTENDING STATUS SOURCE 04/06/2018 Active Other instability, NA Active [place] right knee / Clinic Main M25.361(ICD-10) [place] Repository 05/01/2018 Active Pain in right knee / NA Active [place] M25.561(ICD-10) Clinic Main [place] Repository 05/01/2018 Active Other chronic pain / NA Active [place] G89.29(ICD-10) Clinic Main [place] Repository 05/10/2018 Unknown 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, 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 / Repository Q52.4(ICD-10) 09/19/2017 Unknown Z39.2 - Encounter for Sofi, Active [place] routine [facility] follow-up / Hospital Z39.2(ICD-10) Repository 08/11/2017 Unknown Z87.59 - Personal Marcanthrito, Active [place] history of other [facility] complications of Hospital , childbirth Repository and the puerperium / Z87.59(ICD-10) 07/29/2017 Unknown Z34.80 - Encounter Sofi, Active [place] for supervision of [facility] other normal Hospital , Repository unspecified trimester / Z34.80(ICD-10) 07/14/2017 Unknown O09.899 - Supervision Sofi, Active [place] of other high risk [facility] pregnancies, Hospital unspecified trimester Repository / O09.899(ICD-10) 07/14/2017 Unknown Z87.440 - Personal Marcanthrito, Active [place] history of urinary [facility] (tract) infections / Hospital Z87.440(ICD-10) Repository 07/14/2017 Unknown O09.292 - Supervision Marcsarah, Active [place] of with [facility] other [facility] Hospital reproductive or Repository obstetric history, second trimester / O09.292(ICD-10) 07/14/2017 Unknown N89.8 - Other Marcanthony, Active [place] specified [facility] noninflammatory Hospital disorders of vagina / Repository N89.8(ICD-10) 07/14/2017 Unknown Z3A.33 - 33 weeks Marcanthony, Active [place] gestation of [facility] / Hospital Z3A.33(ICD-10) Repository 07/29/2017 Unknown O26.893 - Other Marcanthony, Active [place] specified [facility] related conditions, Hospital third trimester / Repository O26.893(ICD-10) 05/20/2017 Unknown J01.90 - Acute Cruz, Nicola Active [place] sinusitis, Community unspecified / Hospital J01.90(ICD-10) Repository 05/20/2017 Unknown J01.00 - Acute Cruz, Nicola Active [place] maxillary sinusitis, Community unspecified / Hospital J01.00(ICD-10) Repository PROCEDURES PROCEDURES No Procedure Records FoundRESULTS RESULTS PROGRESS Observed: 05/01/2018 Status: COMPLETED Source: [place] 9:17 AM [facility] REPOSITORY HNO ID: [id number] Author: Meggan Ang Rt Service: (none) Author Type: (none) Type: Progress Notes Filed: 05/01/2018 9:18 AM Note Text: Radiology Service Progress Note PATIENT NAME: Alan PRESSLEY DATE OF SERVICE: May 01, 2018 TIME: 9:17 AM PATIENT IDENTITY VERIFICATION COMPLETED USING TWO (2) METHODS: Patient confirmed name verbally and Date of . PATIENT GENDER DATA: Female. status: : No status: NO. PATIENT RELEVANT IMPLANT DATA REVIEWED: Yes RADIOLOGY DEPARTMENT: CT; Exam(s) Completed: Lower extremity pf alignment study PERIPHERAL IV DATA: Not applicable SIGNED BY: Meggan Ang Rt May 01, 2018 9:[address] KNEE WO IVCON RT Observed: 05/01/2018 Status: C Source: [place] 9:00 AM [facility] REPOSITORY * * *Final Report* * * * * * SEE BOTTOM OF REPORT FOR ADDENDED TEXT * * * DATE OF EXAM: May 01 2018 9:00AM [facility] 0084 - CT KNEE WO IVCON RT / PROCEDURE REASON: multiple diagnoses * * * * Physician Interpretation * * * * * * * * * * * * ORIGINAL REPORT * * * * * * * * CT KNEE WO IVCON RT HISTORY: Patellar instability COMPARISON: None TECHNIQUE: Limited CT of the knee was performed for TT: TG distance evaluation.. CT Radiation dose: Integrated Dose-length product (DLP) for this visit = 333 mGy*cm. RESULT: Left TT: TG distance is 1.2 cm. Right TT: TG distance is 1.9 cm No evidence of fracture or dislocation dictation in this limited evaluation. There is mild lateral subluxation of the right patella. Soft tissues are grossly unremarkable. IMPRESSION: Bilaterally TT: TG distance as described. * * * * * * * * ADDENDUM #1 * * * * * * * * Addendum made following postprocessing. Multiple new measurements as follows. Right knee: TT: TG - 2.4 cm Sulcus angle - 163 degrees Trochlear inclination - 11 degrees Distal femoral inclination - 5 degrees Patellar tilt - 21 degrees Congruence angle - 19 degrees Left knee: TT: TG -2.1 cm Sulcus angle - 161 degrees Trochlear inclination - 12 degrees Distal femoral inclination - 7 degrees Patellar tilt - 16 degrees Congruent angle - 18 degrees Energy Professional: [facility]ITAL[facility]ren[facility] Transcribe Date/Time: May 01 2018 1:37P Dictated by : CATERINA LOPEZ MD This examination was interpreted and the report reviewed and electronically signed by: YOLIS RÍOS MD on May 01 2018 1:16PM EST This document has been addended by: YOLIS RÍOS MD on May 01 2018 3:01PM EST [id number] OPERATIVE REPORT Observed: 04/27/2018 Status: F Source: [place] 8:52 PM [facility] REPOSITORY [facility] Medical Records Department [address] [place] [address] Operative Report 04/27/18 1243 MR#: [id number] Acct: [id number] Name: ALAN PRESSLEY Rep #: [id number] : 1980 37 From: Reyna Prado MD PCP: Care Physician, No Primary Status: [place] [facility] [place] Location[place] [facility] [place] Problem List (1) Edilberto duct, cyst Status: Chronic Comment: plan removal Report of Operation Date of Procedure: 04/27/18 Pre-Operative Diagnosis: edilberto's duct cyst Post-Operative Diagnosis: same Surgery/Procedure Performed:: removal of edilberto's duct cyst Description of Surgical Findings:: left collapsed edilberto's duct cyst water chemist: Shilpa Gutierrez water chemist: Junie Hennessy Type of Anesthesia:: General Specimen's removed: edilberto's duct cyst Drains: recinos Estimated Blood Loss (mL): 150 Fluids Replaced: crystalloid Description of Procedure: patient placed under general anesthesia. she was prepped and draped in the usual sterile fashion in the dorsal supine position. left cyst was identified and the area injected iwth marcaine, and then longitudinal vaginal incision was made and the edilberto's duct cyst wall was sharply and bluntly dissected away from the vaginal side wall. recinos catheter in place to maintain good anatomic landmarks. after the cyst wall was rmoved as completley as possible, the defect was closed with figure of 8 2-0 vicryl sutures and the vaginal mucosa reapporximated with 2-0 vicryl. patient was awoken and taken to recovery with the cath removed. Grafts/Implants Used: none - Complications none - Admit VTE Documentation VTE Present on Admission: No VTE Mechan Device Prophylaxis: SCD's VTE Pharm Prophylaxis ordered?: No 04/27/182051 <Electronically signed by Reyna Prado MD> Date Reyna Prado MD CC: No Primary Care Physician; Reyna Prado MD Signed DISCHARGE INSTRUCTION Observed: 04/27/2018 Status: F Source: [place] 12:47 PM [facility] REPOSITORY [facility] Medical Records Department [address] [place] [id number] Instructions for Home/Discharge Instructions 04/27/18 1246 MR#: [id number] Acct: [id number] Name: ALAN PRESSLEY Rep #: [id number] : 1980 37 From: Reyna Prado MD PCP: Care Physician, No Primary Status: REG [facility] [place] Discharge Diet: No Restrictions Discharge Activity: Return to Normal Activity, May Shower May resume sexual activity in: 4-6 weeks Allergies/Adverse Reactions: Allergies povidone-iodine Allergy (Mild, Verified 04/21/18 09:00) Rash hydrocodone Adverse Reaction (Mild, Verified 04/21/18 09:01) Nausea/Vom/Diarrhea azithromycin [From Zithromax Z-Marta] Adverse Reaction (Verified 04/26/18 07:37) Upset Stomach Medications to take at Discharge Naproxen [Naprosyn] 250 - 500 mg PO Q8H PRN PRN #30 tablet 04/27/18 The following prescriptions were given: Naproxen [Naprosyn] 250 - 500 mg PO Q8H PRN PRN #30 tablet PRN Reason: MILD PAIN Orders to be completed after discharge: ,Urine Time Frame: 04/27/18, Location: Laboratory Primary Care Physician: Care Physician,No Primary [Primary Care Provider] - Test Results: Test results from this visit will be discussed in further detail at your follow-up appointment, if applicable. Please Follow Up With: Reyna Prado MD - [phone] 04/27/18 1247 <Electronically signed by Reyna Prado MD> Date Reyna Prado MD CC: No Primary Care Physician VAGINAL WALL Observed: 04/27/2018 Status: F Source: [place] 12:00 PM [facility] REPOSITORY Patient: ALAN PRESSLEY : 1980 (37/F) Acct Num: [id number] Phys: Reyna Prado MD Unit Num: [id number] Loc: [facility] [place] Specimen: [id number] Received: 04/27/181621 Spec Type: VAG WALL TISSUES 1 TISSUES: Vagina, NOS COMMENT Case has been reviewed in consultation with Dr. Cates who concurs with the above diagnosis. IDC:AM GROSS DESCRIPTION Received in fixative is one container labeled with the patient's name and designated lateral vaginal cyst wall. The specimen consists of four variable sized pieces of fermin soft tissue measuring in aggregate 3.5 x 2.5 x 0.5 cm. The largest piece is serially sectioned. The entire specimen is submitted in two cassettes. / YUMIKO:sophie 04/28/18 TC:5 CPT: 65546 HEADER OPERATION: Removal vaginal wall cyst PRE-OP DIAGNOSIS: Vaginal wall cyst TISSUE SUBMITTED: Lateral vaginal wall cyst MICROSCOPIC DESCRIPTION Slides are reviewed. MICROSCOPIC DIAGNOSIS Lateral vaginal wall cyst, biopsy: Fragments of squamous mucosa with benign epithelial cyst, favor m llerian derived cyst. SJ:sophie 05/01/18 Signed Lenny Makin 05/01/18 <signature on file> Performed By: #### PVAGW #### [facility] [address] [place], [address] HISTORY AND PHYSICAL Observed: 04/27/2018 Status: F Source: [place] EXAM 11:34 AM [facility] REPOSITORY [facility] Medical Records Department [address] [place] [address] History and Physical 04/27/18 0539 MR#: [id number] Acct: [id number] Name: ALAN PRESSLEY Rep #: [id number] : 1980 37 From: Reyna Prado MD PCP: Care Physician, No Primary Status: REG [facility] [place] Location: [place] [address] Problem List (1) Edilberto duct, cyst Status: Chronic Comment: plan removal History of Present Illness Date of Admission: 04/27/18 Chief Complaint: vaginal cyst The patient is a 37 year old F presents for removal of vaginal edilberto's duct cyst. she has had it present for years on the left vaginal wall and is ready to have it removed now. she has vaginal discomfort from it intermittently and does have some chronic discharge from it also. Past Medical History Past Medical History (Chronic Problems): Chronic Problems (Last Reviewed 02/08/18 @ 11:58 by Sachi Canales) Edilberto duct, cyst (Chronic) plan removal Medical History: Medical History (Last Reviewed 02/08/18 @ 11:58 by Sachi Canales) Allergies povidone-iodine Allergy (Mild, Verified 04/21/18 09:00) Rash hydrocodone Adverse Reaction (Mild, Verified 04/21/18 09:01) Nausea/Vom/Diarrhea azithromycin [From Zithromax Z-Marta] Adverse Reaction (Verified 04/26/18 07:37) Upset Stomach Home Medications: Ambulatory Orders Medication Instructions Recorded NK 02/08/18 Surgical History: Surgical History (Last Reviewed 02/08/18 @ 11:58 by Sachi Canales) History of appendectomy Z90.49 ankle surgery knee Smoking Status: Former smoker Tobacco Use: Non-smoker Alcohol: None Drugs: None Review of Systems Constitutional: Denies: Fever, Malaise Eyes: Denies: Blurred vision, Vision Change HEENT: Denies: Head Aches, Visual Changes Cardiovascular: Denies: Chest Pain, Palpitations Respiratory: Denies: Cough, Shortness of Breath, Wheezing Gastrointestinal: Denies: Abdominal Pain, Diarrhea, Nausea, Vomiting Genitourinary: Denies: Dysuria, Hematuria Musculoskeletal: Denies: Joint Pain, Muscle pain Skin: Denies: Lesions, Rash Neurological: Denies: Blurred vision, Focal weakness, Headaches Psychiatric: Denies: Anxiety, Depression Endocrine: Denies: Heat/ Cold Intolerance Hematologic/ Lymphatic: Denies: Easy Bruising, Easy Bleeding VTE Information - Inpt Only VTE Present on Admission: No - Physical Exam General: Alert, Oriented x3 HEENT: Atraumatic, Normocephalic Oral: Moist Mucosa Neck: Supple, Thyroid Normal Size and Texture Lungs: Normal air movement Cardiovascular: Regular rate, Regular Rhythm Abdomen: Soft, Non Tender Extremities: No edema Skin: No rashes, No breakdown Comment: Slunk Skin Curer: left 4-5 cm vaginal wall cyst present Assessment/Plan All Active Problems (Last Reviewed 02/08/18 @ 11:58 by Sachi Canales) Blepharitis of right eye (Acute) Gestational hypertension (Acute) Active labor at term (Acute) URI (upper respiratory infection) (Acute) Supervision of other normal (Acute) Vaginal cyst (Acute) History of pre-eclampsia in prior , currently in second trimester (Acute) History of 3 sections (Acute) History of GBS (group B streptococcus) UTI, currently (Acute) Sinusitis (Acute) 37 yo with edilberto's duct cyst plan surgical removal of cyst. discussed risks of bleeding or infection. plan proceeding with surgery. 04/27/18 1014 <Electronically signed by Reyna Prado MD> Date Reyna Prado MD Cosign Signature: Date (if applicable) CC: No Primary Care Physician; Reyna Prado MD Signed CBC-COMPLETE BLOOD CNT Collected: 04/27/2018 Status: F Source: [place] NO DIFF 10:50 AM [facility] REPOSITORY TYPE CODE TESTS RESULT OUT OF RANGE REFERENCE UNITS LAB L100.1000 4.4-11.0 K/mm3 Normal WBC 5.0 LAB L100.1200 4.2-5.4 M/mm3 Normal RBC 5.08 LAB L100.1300 12.0-15.0 g/dl Normal HGB 14.8 LAB L100.1400 37-47 % Normal HCT 44.7 LAB L100.1500 81-99 fL Normal MCV 88.0 LAB L100.1600 27.0-32.0 pg Normal MCH 29.1 LAB L100.1700 32-36 g/gl Normal MCHC 33.1 LAB L100.1810 11.6-14.6 % Normal RDW CV 12.5 LAB L100.1820 35.1-43.9 fl Normal RDW SD 40.0 LAB L100.1900 150-450 K/mm3 Normal PLT 236 LAB L100.2000 6.2-12.0 fl Normal MPV 9.7 Performed By: #### L100.0500 #### [facility] [address] [place], [place], [id number] TYPE AND SCREEN Collected: 04/27/2018 Status: F Source: [place] 10:50 AM [facility] REPOSITORY Order Comment: Has pt arrived? Y Reason for Type AND Screen/Red Cells: SURGERY Type of Surgery: D AND C TYPE CODE TESTS RESULT OUT OF RANGE REFERENCE UNITS LAB B10.0800 O Normal BLOOD TYPE GEL POSITIVE LAB B100.4000 Normal Antibody NEGATIVE Screen Performed By: #### [id number] #### [facility] [address] [place], [place], [address] ,URINE Collected: 04/27/2018 Status: F Source: [place] 10:45 AM [facility] REPOSITORY TYPE CODE TESTS RESULT OUT OF REFERENCE UNITS RANGE LAB L400.8000 Negative Normal HCGUQUAL Negative Result Comment: Very dilute urine specimens, as indicated by a low specific gravity, may not contain access services representative levels of hCG. If is still suspected, a first morning urine specimen should be collected 48 hours later and tested. Performed By: #### [id number] #### [facility] [address] [place], [address] CNOV Observed: 04/06/2018 Status: COMPLETED Source: [place] 8:20 AM [facility] REPOSITORY Office Visit (SPRTST) ALAN PRESSLEY ([id number]) 1980 F Date Time Provider Department 04/06/18 8:20 AM [facility] SPRTST During your visit today, we recorded the following information about you: Kermit West MD 04/06/2018 12:59 PM Signed New Patient appointment History of present illness: Alan PRESSLEY is a 37 year old female who comes in today with a chief complaint of right knee pain and instability. The instability of the patella has been present for 15-20 years but acutely worsened over past yest . States she has instability when engaging in physical activity and this has prevented her from running and doing activities she enjoys. She also has pain that is worst with stairs but she has episodes of instability with any vigorous physical activity that has become more frequent and occurring w/ less activity. This instability occurred with the following preceding injury: running injury 20 years ago tx w/ arthroscopy- pt unaware of specific injury . There is pain with stairs. There is pain with squatting. Patient has swelling that occurs after episodes of instability. There is popping/clicking. There is locking. There is not giving way. There is not night pain. Prior treatment: 3 courses of physical therapy . Pt states instability is more of an issue than pain. She has 4 children and would like to continue being active with them. She works a desk job as a researcher. ALLERGIES Allergen Reactions - Vicodin [Hydrocodon* Vomiting - Z Marta [Azithromycin] Other: See Comments Stomach cramps No past medical history on file. No past surgical history on file. No current outpatient prescriptions on file prior to visit. No current facility-administered medications on file prior to visit. No family history on file. Social History Marital status: Spouse name: Years of education: Number of children: Social History Main Topics Smoking status: Never Smoker Smokeless tobacco: Never Used Review of Systems: CV: No chest pain Pulm: No short of breath HEENT: No head ache General: no fevers, chills, nausea/vomiting, malaise Physical Examination: This is a well appearing, well nourished patient in no acute distress. Patient's head is normocephalic and atraumatic. Patient has white sclera and pink conjunctiva. Mucous membranes are moist. Patient breathes easily and has normal chest wall excursion. Patient has a Normal. affect. Body habitus normal . Focused exam of the knee: Normal. gait. Knee alignment: Normal. . Pain with squat test: yes . Pes planus: No. Generalized ligamentous laxity: No . Range of motion is 0-120 . There is pain with patellofemoral compression. There is pain along medial facet. No pain along lateral facet.. No pain along lateral retinaculum.Tibial tubercle position: midline. There is not Apprehension. No effusion. There is not quadriceps atrophy. There is patellofemoral crepitance. There is medial joint line pain on palpation. There is not lateral joint line pain on palpation. Ana Luisa's negative . Posterior drawer negative . Jonathan's negative. The extremity is warm and well perfused. Sensation is grossly intact. Contralateral knee exam: Examination of the contralateral knee reveals that there is normal stability, strength, range of motion and no pain on palpation. There is no significant effusion. Sensation grossly intact. Ipsilateral hip exam: There is good range of motion of the ipsilateral hip. No significant pain or restrictions with range of motion or log- rolling. Good strength. Normal stability. Negative straight leg raise. 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 Recommend further imaging to assess alignment. Recommend CT scan. Plan: 1. Return to clinic following CT scan . 2. Physical therapy recommendation: continue at home exercises 3. Pharmacologic treatment: None 4. Bracing: continue home brace as needed Tatyana Brooks MD Attending Attestation: I have seen and evaluated this patient. I agree with the impression and plan of care as outlined in the resident's note. Right knee patellofemoral pain and instability. Instability seems to be her most significant issue. Pain is not minor however. She has very subtle lateral tracking. Her tibial tubercle is somewhat midline. She has some mild apprehension. She has some patellofemoral irritability. She has crepitance in her knee with compression range of motion testing. We had a long discussion with her today. I explained the indications of patellofemoral instability in the setting of pain. I reviewed her MRI images. She does have some chondrosis on her lateral facet which does appear to cross over into the medial facet. The superior facet may have intact cartilage. This is a tough issue. Certainly we can make her instability better. We are going to get a dynamic CAT scan to evaluate her TT: TG distance and her suitability for possible patellofemoral realignment to offload her cartilage. She will return to see me following that CAT scan. Kermit West MD Referring Provider: SELF [[id number]] Allergies As of Date: 04/06/2018 Noted Allergy Reaction VICODIN (HYDROCODONE-ACETAMINOPHE*12/15/2013 11 - Vomiting Z MARTA (AZITHROMYCIN) 11/10/2013 14 - Other: See Comments Comments: Stomach cramps Date Reviewed: 04/06/2018 Reviewed by: Leonid Johnston MD (Fel) - Fully Assessed Reason for Visit: Right Knee Pain [1209] Primary Visit Diagnosis:Patellar instability of right knee [M25.361] Other Visit Diagnosis:Chronic pain of right knee [M25.561, G89.29] Order(s):CT KNEE WO IVCON RT [[id number]] Order #: [id number] FUTURE Problem List As Of Date 04/06/2018 Noted Resolved Patellar instability of right knee [M25.361] INVALID FOR* Follow-up and Disposition History Recorded Encounter Status:Closed by KERMIT WEST MD on 04/06/18 PROGRESS Observed: 04/06/2018 Status: COMPLETED Source: [place] 8:18 AM [facility] REPOSITORY HNO ID: [id number] Author: Kermit West Service: (none) Author Type: Physician Type: Progress Notes Filed: 04/06/2018 12:59 PM Note Text: New Patient appointment History of present illness: Alan PRESSLEY is a 37 year old female who comes in today with a chief complaint of right knee pain and instability. The instability of the patella has been present for 15-20 years but acutely worsened over past yest . States she has instability when engaging in physical activity and this has prevented her from running and doing activities she enjoys. She also has pain that is worst with stairs but she has episodes of instability with any vigorous physical activity that has become more frequent and occurring w/ less activity. This instability occurred with the following preceding injury: running injury 20 years ago tx w/ arthroscopy- pt unaware of specific injury . There is pain with stairs. There is pain with squatting. Patient has swelling that occurs after episodes of instability. There is popping/clicking. There is locking. There is not giving way. There is not night pain. Prior treatment: 3 courses of physical therapy . Pt states instability is more of an issue than pain. She has 4 children and would like to continue being active with them. She works a desk job as a researcher. ALLERGIES Allergen Reactions - Vicodin [Hydrocodon* Vomiting - Z Marta [Azithromycin] Other: See Comments Stomach cramps No past medical history on file. No past surgical history on file. No current outpatient prescriptions on file prior to visit. No current facility-administered medications on file prior to visit. No family history on file. Social History Marital status: Spouse name: Years of education: Number of children: Social History Main Topics Smoking status: Never Smoker Smokeless tobacco: Never Used Review of Systems: CV: No chest pain Pulm: No short of breath HEENT: No head ache General: no fevers, chills, nausea/vomiting, malaise Physical Examination: This is a well appearing, well nourished patient in no acute distress. Patient's head is normocephalic and atraumatic. Patient has white sclera and pink conjunctiva. Mucous membranes are moist. Patient breathes easily and has normal chest wall excursion. Patient has a Normal. affect. Body habitus normal . Focused exam of the knee: Normal. gait. Knee alignment: Normal. . Pain with squat test: yes . Pes planus: No. Generalized ligamentous laxity: No . Range of motion is 0-120 . There is pain with patellofemoral compression. There is pain along medial facet. No pain along lateral facet.. No pain along lateral retinaculum.Tibial tubercle position: midline. There is not Apprehension. No effusion. There is not quadriceps atrophy. There is patellofemoral crepitance. There is medial joint line pain on palpation. There is not lateral joint line pain on palpation. Ana Luisa's negative . Posterior drawer negative . Jonathan's negative. The extremity is warm and well perfused. Sensation is grossly intact. Contralateral knee exam: Examination of the contralateral knee reveals that there is normal stability, strength, range of motion and no pain on palpation. There is no significant effusion. Sensation grossly intact. Ipsilateral hip exam: There is good range of motion of the ipsilateral hip. No significant pain or restrictions with range of motion or log-rolling. Good strength. Normal stability. Negative straight leg raise. 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 Recommend further imaging to assess alignment. Recommend CT scan. Plan: 1. Return to clinic following CT scan . 2. Physical therapy recommendation: continue at home exercises 3. Pharmacologic treatment: None 4. Bracing: continue home brace as needed Tatyana Brooks MD Attending Attestation: I have seen and evaluated this patient. I agree with the impression and plan of care as outlined in the resident's note. Right knee patellofemoral pain and instability. Instability seems to be her most significant issue. Pain is not minor however. She has very subtle lateral tracking. Her tibial tubercle is somewhat midline. She has some mild apprehension. She has some patellofemoral irritability. She has crepitance in her knee with compression range of motion testing. We had a long discussion with her today. I explained the indications of patellofemoral instability in the setting of pain. I reviewed her MRI images. She does have some chondrosis on her lateral facet which does appear to cross over into the medial facet. The superior facet may have intact cartilage. This is a tough issue. Certainly we can make her instability better. We are going to get a dynamic CAT scan to evaluate her TT: TG distance and her suitability for possible patellofemoral realignment to offload her cartilage. She will return to see me following that CAT scan. Kermit West MD [employer] OFFICE VISIT Observed: 02/08/2018 Status: F Source: [place] REPORT 9:53 PM [facility] [address] [place] [address] OFFICE VISIT Date of Service: 02/08/18 MR#: [id number] Acct: [id number] Name: ALAN PRESSLEY Rep #: [id number] : 1980 Provider: Reyna Prado MD Age/Sex: 37/F Location: [facility] Status: Signed Intake Vital Signs02/08/18 Height 5 ft 7 in 02/08/18 Weight: 184 lb 4 oz 02/08/18 Body Mass Index (BMI) 28.8 02/08/18 Blood Pressure 110/70 Intake Visit Reasons: DISCUSS CYST REMOVAL Electronic Heat Seal Operator Required: No Is patient in pain?: No Allergies hydrocodone Allergy (Mild, Verified 02/08/18 11:57) Nausea/Vom/Diarrhea povidone-iodine Allergy (Mild, Verified 02/08/18 11:57) Rash azithromycin [From Zithromax Z-Marta] Allergy (Verified 02/08/18 11:57) Upset Stomach Medications NK [NK] 02/08/18 [History Confirmed 02/08/18] Post menopausal: No Patient : No : Yes PFSH Medical History (Acute) Surgical History History of appendectomy (Acute) ankle surgery (Acute) knee (Acute) Family History Mother Cancer Lung Aunt Breast cancer Social History Smoking Status: Never smoker alcohol intake: never substance use type: does not use caffeine: Yes what type of physical activity do you participate in: none seatbelt use: always 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 she notes discharge from this and some odor at times but nothing acutely. she denies any abnormal bleeding and is still able to be sexually active. Female Reproductive History Cycle Length: >35 Pregancy History 5 Elective abortions Hx Para 4 Spontaneous abortions Past Pregnancies Del. DatName GA/WeeksOutcome [facility] LocaProviderFOB e ht en ia tn 04/03/10yla 37 live birC-sectio Female th - fuln l term 01/21/12Maddox 37 live birC-sectio Male th - fuln l term Delivery Date: 08/05/17 No notes to display Delivery Date: 12/07/15 No notes to display Delivery Date: 01/21/12 On 05/06/17 @ 13:52 Elham Reynaga preeclampsia Delivery Date: 04/03/10 No notes to display ROS Const Constitutional: Denies poor appetite, headache(s), fever(s), increased appetite, weight gain, weight loss or fatigue ENT ENT: Denies dry mouth GI GI: Reports as per HPI; denies vomiting, nausea, abdominal pain or constipation : Denies nipple discharge Skin Skin/Breast: Denies hair loss, change in hair, dry skin, breast pain, breast skin changes, breast lump or nipple discharge Exam Const General: cooperative, healthy appearing, comfortable, no acute distress, well developed Nutritional Appearance: average body habitus Orientation: alert HENMT Head: normal to inspection, normocephalic Ears: hearing grossly normal bilaterally, external ears normal Nose: external nose normal, nares normal Face and sinus: normal facial exam Neck Neck: normal visual inspection, trachea midline, no lymphadenopathy Thyroid: thyroid normal Resp Effort AND Inspection: normal respiratory effort Musc Other: gross motor intact no deficits, full bilateral strength Skin General: no rashes or lesions noted Neuro Motor: muscle tone normal throughout Assessment AND Plan Problems 1. Edilberto duct, cyst Q52.4 plan removal Plan discussed removal, discussed surgical risks including risks of anesthesia, infection, bleeding, injury to bowel, bladder or blood vessels, and patient wishes to proceed with surgery. Coding Level of Care Code Off vis,est,level 4 Diagnoses Edilberto duct, cyst Q52.4 02/08/18 2153 <Electronically signed by Reyna Prado MD> Date Reyna Prado MD Cosigner Signature: Date (if applicable) CC: URGENT CARE VISIT Observed: 01/11/2018 Status: F Source: [place] REPORT 3:18 PM [facility] [place] [address] OFFICE VISIT Date of Service: 01/11/18 MR#: [id number] Acct: [id number] Name: ALAN PRESSLEY Rep #: [id number] : 1980 Provider: Fred HANNON Age/Sex: 37/F Location: [facility] Status: Signed Intake Vital Signs01/11/18 Height 5 ft 7 in 01/11/18 Weight: 194 lb 01/11/18 Body Mass Index (BMI) 30.4 01/11/18 Blood Pressure 102/66 Intake Visit Reasons: Conjunctivitis Chief Complaint: right eyelid pain Electronic Heat Seal Operator Required: No Accompanied by: daughter Is patient in pain?: No Allergies hydrocodone Allergy (Mild, Verified 01/11/18 14:15) Nausea/Vom/Diarrhea povidone-iodine Allergy (Mild, Verified 01/11/18 14:15) Rash azithromycin [From Zithromax Z-Marta] Allergy (Verified 01/11/18 14:15) Upset Stomach PFSH Medical History (Acute) Surgical History History of appendectomy (Acute) ankle surgery (Acute) knee (Acute) Family History Mother Cancer Lung Aunt Breast cancer Social History Smoking Status: Never smoker alcohol intake: never substance use type: does not use caffeine: Yes what type of physical activity do you participate in: none seatbelt use: always 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 Patient notes waking this morning note noting localized tenderness along the left lower eyelid eyelash border. She notes localized tenderness is remarkably tender to touch alleviated with rest only minimally. She notes no discharge from her eyes no conjunctival erythema and no visual acuity changes. She notes no complaints of lightheadedness or dizziness or nausea or vomiting or generalized headaches or fever or chills or sweats. She notes no other associated symptoms and no other alleviating or aggravating factors. ROS Const Constitutional: Positive for other (ROS negative 10 other than that noted above) Exam Const General: cooperative, healthy appearing, no acute distress Nutritional Appearance: average body habitus Orientation: alert, awake, oriented x3 HENMT Head: normal to inspection Ears: hearing grossly normal bilaterally, external ears normal, TM's normal bilaterally, EAC's normal Nose: external nose normal, nares normal, septum normal, no nasal discharge Face and sinus: normal facial exam, face symmetric, sinuses nontender Mouth: oral mucosae normal, lip normal, oropharynx normal, tongue normal Teeth and gingiva: dentition normal, gingiva normal Throat: uvula midline, tonsils normal, posterior oropharynx normal, no postnasal drainage Eyes General: appearance normal, both eyes and all related structures Visual Issa: normal visual issa by confrontation Alignment and Position: alignment normal Eyelids: eyelid abnormality right lower eyelid (Medial eyelash border erythema trace swelling without discharge) Neck Neck: normal visual inspection, full ROM, no lymphadenopathy, no meningeal signs, supple Neck mass: No Thyroid: thyroid normal Lymphatic: no lymphadenopathy noted Chest Chest palpation AND inspection: normal inspection of the chest Resp Effort AND Inspection: normal respiratory effort, able to speak in complete sentences, symmetric chest movement Auscultation: Bilateral: Clear to Auscultation Cardio Palpation: normal PMI Rate: regular rate Rhythm: regular rhythm Heart Sounds: S1 normal, S2 normal, no gallops, no murmurs, no rubs Pulses: radial pulses present GI Inspection: normal to inspection Palpation: soft, no hepatosplenomegaly Skin General: no rashes or lesions noted (See eyelid exam above) Neuro General: alert, awake, oriented x3, gait normal Cognition: normal cognition Speech: speech normal Gait: normal gait Motor: muscle tone normal throughout Sensory Exam: no sensory deficits noted Psych Appearance: grossly normal Mental Status: mental status grossly normal Mood: congruent mood Affect: normal affect Speech and Movement: speech and movement normal Attitude: cooperative Thought Process: normal Thought Content: normal Judgment: judgment good Assessment AND Plan 1. Conjunctivitis H10.9 2. Blepharitis of right eye H01.003 Plan Warm compresses with baby shampoo to right lower eyelid. Discontinue all mascara/cosmetics circumferential to eyes. Follow-up with PCP in 3-5 days should symptoms not improved, sooner should symptoms worsen or any other concerns develop. Patient states acknowledging understanding all of the above. This note was generated with Nimayaation software. It may contain incorrect words, spelling, and punctuation that were not noted in checking the note before signing. Coding Level of Care Code Off vis,est,level 3 Diagnoses Conjunctivitis H10.9 Blepharitis of right eye H01.003 01/11/18 1518 <Electronically signed by Fred HANNON> Date Fred HANNON Cosigner Signature: Date (if applicable) CC: URGENT CARE VISIT Observed: 12/04/2017 Status: F Source: [place] REPORT 9:00 AM [facility] RE[facility]IT[facility] [address] [place] [address] [address] [place] [address] OFFICE VISIT Date of Service: 12/04/17 MR#: [id number] Acct: [id number] Name: ALAN PRESSLEY Rep #: [id number] : 1980 Provider: PARVEZ Mcclellan Age/Sex: 37/F Location: [facility] Status: Signed Intake Vital Signs12/04/17 Height 5 ft 7 in Intake Visit Reasons: HEAD CONGESTION/COLD Chief Complaint: Sinus congestion Allergies hydrocodone Allergy (Mild, Verified 12/04/17 08:50) Nausea/Vom/Diarrhea povidone-iodine Allergy (Mild, Verified 12/04/17 08:50) Rash azithromycin [From Zithromax Z-Marta] Allergy (Verified 12/04/17 08:50) Upset Stomach Medications amoxicillin 875 mg tablet 875 mg PO BID #14 tab 12/04/17 [Rx Confirmed 12/04/17] PFSH Medical History (Acute) Surgical History History of appendectomy (Acute) ankle surgery (Acute) knee (Acute) Family History Mother Cancer Lung Aunt Breast cancer Social History Smoking Status: Never smoker alcohol intake: never substance use type: does not use caffeine: Yes what type of physical activity do you participate in: none seatbelt use: always additional social history: [employer]- [employer] job HPI HPI Chief Complaint: Sinus congestion Details: ALAN PRESSLEY, is a 37 F who presents to the office today for sinus congestion for 10 days. The patient states she has maxillary and frontal facial, teeth pain, she reports ear pressure and swollen lymph nodes in the neck. Patient states she is breast-feeding. Her child is 4 months old. ROS Const Constitutional: Positive for headache(s); no chills or fever(s) Eyes Eyes: No change in vision ENT ENT: Positive for headache(s), facial pain, sinus pain, sinus pressure and ear pressure Resp Respiratory: No cough, chest congestion, shortness of breath or wheezing Cardio Cardiology: No chest pain at rest or chest pain with exertion Gastro GI: No abdominal pain, diarrhea, vomiting or nausea/dyspepsia Musc Musculoskeletal: No back pain or abnormal walking Skin Skin: No rash or change in skin color Neuro Neurology: Positive for headache(s); no confusion, abnormal walking or abnormal speech Psych Psychiatric: No confusion Aller/Imm Allergy/Immunologic: No wheezing Exam Const General: ill appearing, no acute distress, well developed HENMT Ears: TM's normal bilaterally Face and sinus: sinus tenderness Throat: posterior oropharynx normal Eyes General: appearance normal, both eyes and all related structures Conjunctivae: conjunctivae normal Sclera: sclerae normal Pupils: PERRL Neck Neck: lymphadenopathy (Anterior cervical chain) Chest Chest palpation AND inspection: normal inspection of the chest Resp Effort AND Inspection: normal respiratory effort, no cough, no respiratory distress Auscultation: Bilateral: Clear to Auscultation Cardio Rate: regular rate Rhythm: regular rhythm GI Inspection: normal to inspection Auscultation: normal bowel sounds Palpation: no hepatosplenomegaly, no splenomegaly, no masses Skin General: no pallor Rashes: no rashes Nails: no clubbing Neuro General: oriented x3, gait normal Extrem General: normal to inspection, no pedal edema, no calf tenderness, normal gait, no edema, no cyanosis, no clubbing, no calf tenderness bilaterally, no pedal edema Psych Mood: congruent mood Affect: normal affect Speech and Movement: speech and movement normal Assessment AND Plan Problems 1. Acute non-recurrent maxillary sinusitis J01.00 Plan Begin amoxicillin 875 mg every 12 hours. Keep well-hydrated. Warm compresses to the to the face as needed. Return to the clinic if needed. Medications New: Coding Level of Care Code Off vis,est,level 3 Diagnoses Acute non-recurrent maxillary sinusitis J01.00 Sinusitis location: maxillary Chronicity: acute Recurrence: non-recurrent 12/04/17 0900 <Electronically signed by Leonid HANNON> Date Leonid HANNON Cosigner Signature: Date (if applicable) CC: SHEEP OR CALF GRADER OFFICE VISIT Observed: 09/19/2017 Status: F Source: CARA REPORT 3:05 PM [facility] REPOSITORY [facility] [address] [place] [address] OFFICE VISIT Date of Service: 09/19/17 MR#: [id number] Acct: [id number] Name: ALAN PRESSLEY Rep #: [id number] : 1980 Provider: Reyna Prado MD Age/Sex: 36/F Location: [facility] Status: Signed Intake Vital Signs09/19/17 Height 5 ft 7 in 09/19/17 Weight: 194 lb 4 oz 09/19/17 Body Mass Index (BMI) 30.4 09/19/17 Blood Pressure 119/66 Intake Visit Reasons: 6 week Chief Complaint: 6 weeks post Electronic Heat Seal Operator Required: No Is patient in pain?: No Allergies hydrocodone Allergy (Mild, Verified 09/19/17 14:48) Nausea/Vom/Diarrhea povidone-iodine Allergy (Mild, Verified 09/19/17 14:48) Rash azithromycin [From Zithromax Z-Marta] Allergy (Verified 09/19/17 14:48) Upset Stomach : Yes [facility] Medical History (Acute) Surgical History History of appendectomy (Acute) ankle surgery (Acute) knee (Acute) Family History Mother Cancer Lung Aunt Breast cancer Social History Smoking Status: Never smoker alcohol intake: never substance use type: does not use caffeine: Yes what type of physical activity do you participate in: none seatbelt use: always 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 DatName GA/WeeksOutcome Route [facility] Walt Silveira LgAnesthesDel LocaProviderFOB e ht en th ia tn 04/03/10yla 37 live birC-sectio Female th - fuln l term 01/21/12Maddox 37 live birC-sectio Male th - fuln l term Delivery Date: 08/05/17 No notes to display Delivery Date: 12/07/15 No notes to display Delivery Date: 01/21/12 On 05/06/17 @ 13:52 Elham Reynaga preeclampsia Delivery Date: 04/03/10 No notes to display Depression Screen PHQ-2/9 If score is 2 or greater, continue Source: Developed by DrsElsa Arias, Carlita Anderson, Joselito Geiger and colleagues, with an educational george from [employer]. Scoring: Total Score Depression Severity Action 1-4 Minimal depression No action needed 5-9 Mild depression Repeat PHQ-9 at follow up 10-14 Moderate depression Make tx plan,consider counseling, fup, prescription Post HPI 6 week : Details: ALAN PRESSLEY is a 36 year old who presents for her post visit. Feeding: Breast Menses resumed: No [place] since delivery: No Emotional Support: Yes ROS Const Reports system reviewed and no additional complaints, except as docu GI Reports system reviewed and no additional complaints, except as docu, Denies bloating, Denies nausea, Denies vomiting, Denies constipation Reports system reviewed and no additional complaints, except as docu, Denies abnormal vaginal bleeding, Denies pelvic pain, Denies sexual problems, Denies urinary urgency, Denies vaginal discharge, Denies urinary hesitancy, Denies urinary incontinence Skin/Breast Reports system reviewed and no additional complaints, except as docu, Reports as per HPI Psych Reports as per HPI Exam Const General: cooperative, healthy appearing, comfortable, no acute distress HENMT Head: normal to inspection Neck Neck: normal visual inspection, no lymphadenopathy Thyroid: thyroid normal Chest Breast inspection: normal inspection of the breasts, normal inspection of the axillae Breast palpation: normal palpation of the breasts, normal palpation of the axillae Resp Effort AND Inspection: normal respiratory effort GI Inspection: normal to inspection, visible herniation (umbilical) Palpation: soft, no hepatosplenomegaly, nontender Other: Incision: C/D/I General: bladder normal to palpation External Female Exam: normal external appearance, normal appearance of the urethra Urethra: normal appearance of the urethra Speculum Exam - Vagina: normal appearance of the vagina, normal vaginal discharge, vaginal cyst (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 care and examination Z39.2 Plan Cervical cancer screening: up to date Contraceptive plans: vasectomy Complications: none discussed edilberto's duct cystl removal when desired mild umbilical hernia referral to general surgery PRN Follow up for annual exams or sooner if indicated. Coding Level of Care Code No Charge Diagnoses care and examination Z39.2 09/19/17 1505 <Electronically signed by Reyna Prado MD> Date Reyna Prado [facility] Signature: Date (if applicable) CC: OFFICE VISIT REPORT Observed: 08/24/2017 Status: F Source: CARA 2:[address] [place] [address] OFFICE VISIT Date of Service: 08/02/17 MR#: [id number] Acct: [id number] Patient: ALAN PRESSLEY Rep #: [id number] : 1980 Provider: Reyna Prado MD Age/Sex: 36/F Location: [facility] Status: Signed Intake Vital Signs08/02/17 Height 5 ft 7 in 08/02/17 Blood Pressure 136/85 Intake Visit Reasons: BP check Chief Complaint: est ob Allergies hydrocodone Allergy (Mild, Verified 08/22/17 13:25) Nausea/Vom/Diarrhea povidone-iodine Allergy (Mild, Verified 08/22/17 13:25) Rash azithromycin [From Zithromax Z-Marta] Allergy (Verified 08/22/17 13:25) Upset Stomach Medications Ibuprofen [Motrin] 600 mg PO Q6H PRN PRN #30 tab 08/08/17 [Rx Confirmed 08/22/17] 08/24/17 1446 <Electronically signed by Reyna Prado MD> Date Reyna Prado MD Cosigner Signature: Date (if applicable) CC: SHEEP OR CALF GRADER OFFICE VISIT Observed: 08/22/2017 Status: F Source: CARA REPORT 2:23 PM [facility] REPOSITORY [facility] [address] [place] [address] OFFICE VISIT Date of Service: 08/22/17 MR#: [id number] Acct: [id number] Name: ALAN PRESSLEY Rep #: [id number] : 1980 Provider: Reyna Prado MD Age/Sex: 36/F Location: [facility] Status: Signed Intake Vital Signs08/22/17 Height 5 ft 7 in 08/22/17 Weight: 196 lb 2 oz 08/22/17 Body Mass Index (BMI) 30.7 08/22/17 Blood Pressure 109/77 Intake Visit Reasons: 2 WEEK PP Electronic Heat Seal Operator Required: No Is patient in pain?: Yes Pain scale (1-10): 2 Allergies hydrocodone Allergy (Mild, Verified 08/22/17 13:25) Nausea/Vom/Diarrhea povidone-iodine Allergy (Mild, Verified 08/22/17 13:25) Rash azithromycin [From Zithromax Z-Marta] Allergy (Verified 08/22/17 13:25) Upset Stomach Medications Ibuprofen [Motrin] 600 mg PO Q6H PRN PRN #30 tab 08/08/17 [Rx Confirmed 08/22/17] : Yes PFSH Medical History (Acute) Surgical History History of appendectomy (Acute) ankle surgery (Acute) knee (Acute) Family History Mother Cancer Lung Aunt Breast cancer Social History Smoking Status: Never smoker alcohol intake: never substance use type: does not use caffeine: Yes what type of physical activity do you participate in: none seatbelt use: always 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 DatName GA/WeeksOutcome Route [facility] LocaProviderFOB e ht en ia tn 04/03/10yla 37 live birC-sectio Female th - fuln l term 01/21/12Maddox 37 live birC-sectio Male th - fuln l term Delivery Date: 08/05/17 No notes to display Delivery Date: 12/07/15 No notes to display Delivery Date: 01/21/12 On 05/06/17 @ 13:52 RonnellElham preeclampsia Delivery Date: 04/03/10 No notes to display Depression Screen PHQ-2/9 If score is 2 or greater, continue Source: Developed by Drs. Jefry Arias, Carlita Anderson, Joselito Geiger and colleagues, with an educational george from [employer]. Scoring: Total Score Depression Severity Action 1-4 Minimal depression No action needed 5-9 Mild depression Repeat PHQ-9 at follow up 10-14 Moderate depression Make tx plan,consider counseling, fup, prescription Post HPI 2 WEEK PP: Details: ALAN PRESSLEY is a 36 year old who presents for her post visit. Assessment AND Plan Problems 1. care following delivery Z39.2 Plan fu for 6 week pp visit Coding Level of Care Code Global Post Op Diagnoses care following delivery Z39.2 08/22/17 1423 <Electronically signed by Reyna Prado MD> Date Reyna Prado MD Cosigner Signature: Date (if applicable) CC: DISCHARGE SUMMARY Observed: 08/11/2017 Status: F Source: CARA 8:25 AM [facility] REPOSITORY [facility] Medical Records Department [address] [place] [address] Discharge Summary 08/11/1723 MR#: [id number] Acct: [id number] Name: ELVISSIOMARAALAN Rossy Rep #: [id number] : 1980 36 From: Reyna Prado MD PCP: Care Physician, No Primary Status: DIS IN Y Location: SU489-6 Discharge Summary Date of Admission: 08/05/17 Date of Discharge: 08/08/17 Summary: Discharge diagnosis: Repeat Procedure: [facility] course: Patient was admitted for a repeat low transverse secondary to gestational hypertension new onset and regular contractions with 3 previous C-sections. Patient underwent a uncomplicated and routine recovery with a return of bowel and bladder function. She was ambulating well, tolerating p.o. and had adequate pain control with oral medications and was stable for discharge to home on postop day #3. Discharge instructions: Routine post instructions Discharge medications: Motrin, Percocet Diet: Regular Follow-up: Follow-up in 2 weeks for incision check in 6 weeks for visit Complications: None 08/11/17824 <Electronically signed by Reyna Prado MD> Date Reyna Prado MD Cosigner Signature (if applicable): Date CC: No Primary Care Physician; Reyna Prado MD Signed DISCHARGE INSTRUCTION Observed: 08/08/2017 Status: F Source: TYRONE 8:07 AM [facility] REPOSITORY [facility] Medical Records Department [address] [place] [address] Instructions for Home/Discharge Instructions 08/08/17 0806 MR#: [id number] Acct: [id number] Name: ALAN PRESSLEY Rep #: [id number] : 1980 36 From: Reyna Prado MD PCP: Care Physician, No Primary Status: ADM IN Discharge Diet: No Restrictions Discharge Activity: May Not Drive - for 2 weeks, May not drive while taking narcotic pain medications., May Shower, May Take a Tub Bath - in 7 days May resume sexual activity in: 4-6 weeks Lifting Restrictions: 20 pounds Additional Activity Instructions:: Nothing in the vagina for 4-6 weeks. You may return to work/school in 6 weeks. Call your doctor if your incision/area has: Continuous Slow Oozing, Sudden Increased Bleeding, Increased Pain/ Swelling, Increased Redness, Foul Smelling Discharge Call your doctor if you observe: Fever of 101 or Higher, Using more than one pad per hour - for 2 hours Suture Line Care: Avoid Pulling/Pushing, Avoid Pinching/Bending Cleanse incision/area with: Keep Dressing Clean AND Dry Additional Instructions: If you experience any of the following, contact your healthcare provider. * Bleeding that soaks a pad every hour for 2 hours * Fever 100.4 or higher * Unrelieved incision or abdominal pain * Swelling, redness, discharge or bleeding from your incision or episiotomy site * Your incision begins to separate * Problems urinating (including inability to urinate or burning while urinating). * Visual changes * Severe headache * Flu-like symptoms * Pain or redness in one of both of your breasts * Pain, warmth, tenderness or swelling in your legs, especially the calf area * Frequent nausea and vomiting * Symptoms of depression or anxiety If you experience any of the following, call 911 or go to the nearest Emergency Room. * Chest pain * Problems breathing * Seizure activity * Partial or complete paralysis of a body part, slurred speech, weakness or drooping of the face, or a sudden inability to walk or hold your balance Allergies/Adverse Reactions: Allergies hydrocodone Allergy (Mild, Verified 08/04/17 22:28) Nausea/Vom/Diarrhea povidone-iodine Allergy (Mild, Verified 08/04/17 22:28) Rash azithromycin [From Zithromax Z-Marta] Allergy (Verified 08/04/17 22:28) Upset Stomach Medications to take at Discharge vitamin,calcium,hwhhsjoe-fvhe-gippx acid tablet 1 tab PO QDAY 05/06/17 Ibuprofen [Motrin] 600 mg PO Q6H PRN PRN #30 tab 08/08/17 Naproxen [Naprosyn] 250 - 500 mg PO Q8H PRN PRN #30 tab 08/08/17 Oxycodone HCl/Acetaminophen [Percocet 5-325] 2 tablet PO Q4H PRN PRN 7 Days #28 tablet 08/08/17 The following prescriptions were given: Oxycodone HCl/Acetaminophen [Percocet 5-325] 2 tablet PO Q4H PRN PRN 7 Days #28 tablet PRN Reason: Moderate-Severe pain Ibuprofen [Motrin] 600 mg PO Q6H PRN PRN #30 tab PRN Reason: Pain Naproxen [Naprosyn] 250 - 500 mg PO Q8H PRN PRN #30 tab PRN Reason: MILD PAIN Orders to be completed after discharge: Electric breast pump Location: None Selected Follow-Up: Call to make an appointment with your doctor for an incision check in 1-2 weeks. You will also need a 6 week post- follow up appointment. Please Follow Up With: Reyna Prado MD - Call to make an appointment for an incision check in 1-2 [phone] When: You will need a post- check in 6 weeks. Primary Care Physician: Care Physician,No Primary [Primary Care Provider] - 08/08/17 08 <Electronically signed by Reyna Prado MD> Date Reyna Prado MD CC: No Primary Care Physician CBC-COMPLETE BLOOD CNT Collected: 08/06/2017 Status: F Source: CARA NO DIFF 4:35 AM [facility] REPOSITORY Order Comment: Comments: Day #1 Reason for Laboratory Test TYPE CODE TESTS RESULT OUT OF RANGE REFERENCE UNITS LAB L100.1000 4.4-11.0 K/mm3 Normal WBC 8.2 LAB L100.1200 4.2-5.4 M/mm3 Low RBC 3.77 LAB L100.1300 12.0-15.0 g/dl Low HGB 11.1 LAB L100.1400 37-47 % Low HCT 33.0 LAB L100.1500 81-99 fL Normal MCV 87.5 LAB L100.1600 27.0-32.0 pg Normal MCH 29.4 LAB L100.1700 32-36 g/gl Normal MCHC 33.6 LAB L100.1810 11.6-14.6 % Normal RDW CV 13.2 LAB L100.1820 35.1-43.9 fl Normal RDW SD 40.1 LAB L100.1900 150-450 K/mm3 Normal PLT 160 LAB L100.2000 6.2-12.0 fl Normal MPV 10.1 Performed By: #### L100.0500 #### [facility] Laboratory [address] [facility] [place], [address] OPERATIVE REPORT Observed: 08/05/2017 Status: F Source: CARA 4:55 AM [facility] REPOSITORY [facility] Medical Records Department [address] [place] [address] Operative Report 08/05/17 0343 MR#: [id number] Acct: [id number] Name: ALAN PRESSLEY Rep #: [id number] : 1980 36 From: Reyna Prado MD PCP: Care Physician, No Primary Status: ADM IN Location: LA542-7 Problem List (1) Gestational hypertension Status: Acute (2) Active labor at term Status: Acute Report of Operation Date of Procedure: 08/05/17 Pre-Operative Diagnosis: ial ghtn previous cs x 3 Surgery/Procedure Performed:: RLTCS Description of Surgical Findings:: Normal scar tissue normal uterus tubes and ovaries water chemist: Shilpa Gutierrez Type of Anesthesia:: Spinal Specimen's removed: female infant in vertex presentation Drains: recinos Estimated Blood Loss (mL): 800 Fluids Replaced: crystalloid Description of Procedure: The patient is a presented at 37 weeks with regular contractions the blood pressures with history of 3 previous C-sections declining wanting a repeat . Spinal anesthesia was placed without difficulty. Recinos catheter was placed. The patient was placed in the dorsal supine position with leftward tilt. Patient was prepped and draped in the normal sterile fashion. Pfannenstiel skin incision was made with the scalpel and carried through to the underlying layer of fascia with the scalpel. Fascia was nicked in the midline and the incision extended laterally. The rectus bellies were dissected off superiorly and inferiorly with out complication both sharply and bluntly. The peritoneum was entered digitally. The incision was stretched and a low transverse uterine incision was made with the scalpel. The infant's head was delivered atraumatically followed by the anterior and posterior shoulders without complication the rest of the delivered. The cord was clamped and cut and the infant was handed off to awaiting nurse. The placenta was delivered spontaneously immediately following and was noted to be intact and have a three-vessel cord. The uterus was exteriorized cleared of all clots and debris, and the incision was closed in a single layer closure using #1 Monocryl. An additional bbkcgz-mg-tleqh suture was placed on the right ankle to obtain hemostasis. The uterus was returned to the maternal abdomen and gutters were cleared of all clots and debris. The ovaries and fallopian tubes were noted to be within normal limits. The peritoneum was closed with 3-0 Monocryl in a running fashion. Alexis was placed over the inferior aspect of the rectus bellies over the pyramidalis muscle due to some superficial raw appearance. Excellent hemostasis was noted. Fascia was closed with 0 PDS in a running fashion. Subcutaneous tissue was copiously irrigated and the skin was closed with 3-0 Monocryl in a subcuticular fashion. Mepilex dressing was applied without complication. Patient was taken to recovery in stable condition. Grafts/Implants Used: none - Complications none 08/05/17 8210 <Electronically signed by Reyna Prado MD> Date Reyna Prado MD CC: No Primary Care Physician; Reyna Prado MD Signed HISTORY AND PHYSICAL Observed: 08/05/2017 Status: F Source: TYRONE EXAM 3:18 AM [facility] REPOSITORY [facility] Medical Records Department [address] [place] [address] History and Physical 08/05/17 0307 MR#: [id number] Acct: [id number] Name: ALAN PRESSLEY Rep #: [id number] : 1980 36 From: Reyna Prado MD PCP: Care Physician, No Primary Status: ADM IN Y Location: NA370-7 - Problem List (1) Gestational hypertension Status: Acute (2) Active labor at term Status: Acute History Date of Admission: 08/05/17 Final WALKER: 08/26/17 Gestational age: 37 Weeks and 0 Days History of this : 36 yo G Pertinent Past Medical History: PMH: negative PSH: csection x 3 prenatals: Hep B neg rpr nr cbc normal RI HIV neg Allergies hydrocodone Allergy (Mild, Verified 08/04/17 22:28) Nausea/Vom/Diarrhea povidone-iodine Allergy (Mild, Verified 08/04/17 22:28) Rash azithromycin [From Zithromax Z-Marta] Allergy (Verified 08/04/17 22:28) Upset Stomach Current Medications Citric Acid/Sodium Citrate (Bicitra) 30 ml PO UD MARGARETTE Lactated Ringer's () 1,000 mls @ 150 mls/hr IV .Q6H40M MARGARETTE Last Admin: 08/05/17 02:44 Dose: 150 mls/hr Lactated Ringer's () 1,000 mls @ 999 mls/hr IV .Q1H1M MARGARETTE PRN Reason: Wide Open Stop: 08/05/17 03:35 Sodium Chloride () 0 ml IV UD MARGARETTE Smoking Status: Never smoker Alcohol: None Drug Use: none Number of Fetus(es): 1 - fht 140s moderate variability toco q2-4 Review of Systems Constitutional: Denies: Chills, Fever, Weight Change HEENT: Denies: Head Aches, Sinus Congestion, Sinus Drainage Cardiovascular: Denies: Chest Pain, Palpitations Respiratory: Denies: Cough, Sputum production Gastrointestinal: Reports: Abdominal Pain. Denies: Nausea, Vomiting Genitourinary: Denies: Dysuria Musculoskeletal: Denies: Joint Pain, Joint Tenderness Skin: Denies: Rash, Wounds Neurological: Denies: Numbness, Tingling, Focal weakness Psychiatric: Denies: Anxiety, Depression, Homicidal Ideations, Suicidal Ideations Hematologic/ Lymphatic: Denies: Easy Bruising, Easy Bleeding Physical Exam General: Alert, Oriented x3, No apparent distress Cardiovascular: Regular rate Lungs: Normal air movement Abdomen: Soft, Gravid, Appropriate for Gestational Age Estimated gestational size: Appropriate for gestational size Presentation: Cephalic Cervix Dilation (cm): 1 Station: -2 Effacement (%): 50 Assessment/Plan Active and Suspected Problems (Last Reviewed 07/29/17 @ 08:06 by Elham Reynaga) Gestational hypertension (Acute) Active labor at term (Acute) 36 yo 37 weeks IAL GHTN elevated bps- normal labs. regular ctx and uncomfortable. plan repeat csection now. 08/05/17 0318 <Electronically signed by Reyna Prado MD> Date Reyna Prado MD Cosigner Signature: Date (if applicable) CC: No Primary Care Physician; Reyna Prado MD Signed PROTEIN+CREATININE Collected: Status: F Source: CARA RATIO,URINE 08/05/2017 3:00 AM [facility] REPOSITORY TYPE CODE TESTS RESULT OUT OF RANGE REFERENCE UNITS LAB L501.1200 NO RANGE EST. mg/dL Normal UR CREAT 86.70 LAB L501.1930 <11.9 mg/dL High 24.6 PROTEIN,UR.R AN. LAB L501.1940 0-200 mg/g CRE High PROT:CRE 284 RATIO Performed By: #### L501.0900 #### [facility] Laboratory [address] [place], [place], [id number] CBC-COMPLETE BLOOD CNT Collected: 08/05/2017 Status: F Source: CARA NO DIFF 1:15 AM [facility] REPOSITORY TYPE CODE TESTS RESULT OUT OF RANGE REFERENCE UNITS LAB L100.1000 4.4-11.0 K/mm3 Normal WBC 6.9 LAB L100.1200 4.2-5.4 M/mm3 Normal RBC 4.23 LAB L100.1300 12.0-15.0 g/dl Normal HGB 12.4 LAB L100.1400 37-47 % Low HCT 36.2 LAB L100.1500 81-99 fL Normal MCV 85.6 LAB L100.1600 27.0-32.0 pg Normal MCH 29.3 LAB L100.1700 32-36 g/gl Normal MCHC 34.3 LAB L100.1810 11.6-14.6 % Normal RDW CV 12.9 LAB L100.1820 35.1-43.9 fl Normal RDW SD 39.2 LAB L100.1900 150-450 K/mm3 Normal PLT 172 LAB L100.2000 6.2-12.0 fl Normal MPV 11.6 Performed By: #### L100.0500, L300.3900, L300.4310, L100.0100 #### [facility] Laboratory [address] [place], [place], [id number] PROTHROMBIN TIME W/INR Collected: 08/05/2017 Status: F Source: CARA 1:15 AM [facility] REPOSITORY TYPE CODE TESTS RESULT OUT OF RANGE REFERENCE UNITS LAB L300.4150 11.7-14.9 SECONDS Normal PROTIME 11.9 LAB L300.4200 Normal INR 0.9 Performed By: #### L100.0500, L300.3900, L300.4310, L100.0100 #### [facility] [address] [place], [place], [id number] PARTIAL THROMBOPLAST Collected: 08/05/2017 Status: F Source: CARA TIME 1:15 AM [facility] REPOSITORY TYPE CODE TESTS RESULT OUT OF REFERENCE UNITS RANGE LAB L300.4310 24.1-36.2 Seconds Low PTT 21.2 Performed By: #### L100.0500, L300.3900, L300.4310, L100.0100 #### [facility] [address] [place], [address] CBC W/DIFF, AUTOMATED Collected: 08/05/2017 Status: F Source: TYRONE 1:15 AM [facility] REPOSITORY TYPE CODE TESTS RESULT OUT OF RANGE REFERENCE UNITS LAB L100.1000 4.4-11.0 K/mm3 Normal WBC 6.9 LAB L100.1200 4.2-5.4 M/mm3 Normal RBC 4.23 LAB L100.1300 12.0-15.0 g/dl Normal HGB 12.4 LAB L100.1400 37-47 % Low HCT 36.2 LAB L100.1500 81-99 fL Normal MCV 85.6 LAB L100.1600 27.0-32.0 pg Normal MCH 29.3 LAB L100.1700 32-36 g/gl Normal MCHC 34.3 LAB L100.1810 11.6-14.6 % Normal RDW CV 12.9 LAB L100.1820 35.1-43.9 fl Normal RDW SD 39.2 LAB L100.1900 150-450 K/mm3 Normal PLT 172 LAB L100.2000 6.2-12.0 fl Normal MPV 11.6 LAB L100.2100 47-70 % Normal NEUT% 68.1 LAB L100.2200 19-41 % Normal LY% 24.0 LAB L100.2300 0-10 % Normal MONO% 7.7 LAB L100.2400 0-5 % Normal EO% 0.1 LAB L100.2500 0-1 % Normal BASO% 0.1 LAB L100.2550 0.0-0.9 % Normal IM GRAN % 0.000 Result Comment: IG% - Immature Granulocytes (promyelocytes, myelocytes and metamyelocytes) > 1% indicates that a LEFT SHIFT is Present. LAB L100.2620 2.0-7.7 X10 3/uL Normal Absolute Neut 4.6 LAB L100.2720 0.83-4.51 X10 3/ul Normal Absolute Lymph 1.62 Performed By: #### L100.0500, L300.3900, L300.4310, L100.0100 #### [facility] [address] [place], [address] SERUM CREATININE AND Collected: 08/05/2017 Status: F Source: TYRONE GFR 1:15 AM [facility] REPOSITORY TYPE CODE TESTS RESULT OUT OF RANGE REFERENCE UNITS LAB L501.1100 0.55-1.02 mg/dL Low 0.54 CREAT,SERUM Result Comment: The validity of the calculated GFR AND GFRAA in patients over 70 years has not been determined. Clinical correlation is essential. LAB L501.1110 >60 mL/min Normal EST GFR 135 Result Comment: Non- GFR Calc LAB L501.1115 >60 mL/min Normal EST GFR - AA 164 Result Comment: GFR Calc LAB L501.1255 ml/min Normal Estimated CRCL 142.75 Performed By: #### L501.1105, L501.1400, L501.4100, L501.4405 #### [facility] [address] [place], [address] URIC ACID Collected: 08/05/2017 Status: F Source: TYRONE 1:15 AM [facility] REPOSITORY TYPE CODE TESTS RESULT OUT OF RANGE REFERENCE UNITS LAB L501.1400 2.6-6.0 mg/dL Normal URIC 5.4 Result Comment: The drugs N-Acetylcysteine and Metamizole may falsely depress this assay. Performed By: #### L501.1105, L501.1400, L501.4100, L501.4405 #### [facility] [address] [place], [address] AST(SGOT) Collected: 08/05/2017 Status: F Source: TYRONE 1:15 AM [facility] REPOSITORY TYPE CODE TESTS RESULT OUT OF RANGE REFERENCE UNITS LAB L501.4100 15-37 U/L Normal AST 20 Performed By: #### L501.1105, L501.1400, L501.4100, L501.4405 #### [facility] [address] [place], [address] ALANINE AMINOTRANSFERAS Collected: 08/05/2017 Status: F Source: TYRONE (SGPT) 1:15 AM [facility] REPOSITORY TYPE CODE TESTS RESULT OUT OF RANGE REFERENCE UNITS LAB L501.4405 13-56 U/L Low ALT 12 Result Comment: Please note revised ALT reference range effective 2017. Performed By: #### L501.1105, L501.1400, L501.4100, L501.4405 #### [facility] [address] [place], [address] TYPE AND SCREEN Collected: 08/05/2017 Status: F Source: TYRONE 1:15 AM [facility] REPOSITORY Order Comment: Reason for Type AND Screen/Red Cells: SURGERY Type of Surgery: TYPE CODE TESTS RESULT OUT OF RANGE REFERENCE UNITS LAB B10.0800 O Normal BLOOD TYPE GEL POSITIVE LAB B100.4000 Normal Antibody NEGATIVE Screen Performed By: #### B101.7450 #### [facility] [address] [place], [address] OB LIMITED WITH Observed: 08/02/2017 Status: F Source: TYRONE BIOMETRICS 3:03 PM [facility] REPOSITORY [facility] Imaging Services [address] [place] [address] OB Limited With Biometrics MR#: [id number] Acct: [id number] Name: ALAN PRESSLEY Rossy Rep #: [id number] : 1980 F 36 From: Jozef Brand MD PCP: Care Physician, No Primary Status: REG CLI Study: OB Limited With Biometrics Date of Exam: 08/02/17 Exam# [id number] Ordering Dr: Reyna Prado MD STUDY: SECOND AND THIRD TRIMESTER OBSTETRICAL ULTRASOUND - LIMITED REASON FOR EXAM: Female, 36 years old. growth. LMP: November 19, 2016. PRIOR ULTRASOUND: OB ultrasound July 10, 2017. TECHNIQUE: Transabdominal and transvaginal ultrasound evaluation was performed. FINDINGS: There is a single intrauterine fetus. The fetus is in a cephalic presentation. There is demonstrated cardiac activity with a heart rate of 143 bpm. There is a normal amniotic fluid volume. The largest amniotic fluid pocket measures 4.9 cm. The amniotic fluid index (MARCOS) is 14.8 cm. The placenta is posterior in location and is not low lying. There are Grade 1 placental changes. The cervix measures 4.42 cm in length and is closed. BIOMETRY: BPD: 8.89 cm 36 weeks, 0 days HC: 32.23 cm: 36 weeks, 3 days AC: 34.11 cm: 38 weeks, 1 days FL: 7.06 cm: 36 weeks, 2 days CI: 80% FL/BPD: 79% FL/AC: 41% HC/AC: 0.94 Age by LMP: 36 weeks, 4 days. WALKER by LMP: August 26, 2017. age by prior US: 37 weeks, 3 days. WALKER by prior US: August 20, 2017. age by current US: 36 weeks, 5 days. WALKER by current US: August 25, 2017. Estimated weight: 3133 grams, +/- 458 grams, 70 percentile. US/OB Limited With Biometrics IMPRESSION: 1. Single living intrauterine fetus in cephalic presentation showing expected interval growth since previous study. 2. Estimated gestational age today is 36 weeks, 5 days, with estimated date of delivery of August 25, 2017. 3. Estimated weight is 3133 g. 4. Normal amniotic fluid volume with an index of 14.8 cm. 5. Grade 1 posterior placenta is not low-lying. 6. The cervix is closed. Cervical length is 4.42 cm. Electronically Signed: Jg Brand MD at 20:09 EST , Service support , CC: No Primary Care Physician; Reyna Prado MD Energy Professional: Signed SHEEP OR CALF GRADER OFFICE VISIT Observed: 07/29/2017 Status: F Source: CARA REPORT 1:35 PM [facility] REPOSITORY [facility] [address] [place] [address] OFFICE VISIT Date of Service: 07/29/17 MR#: [id number] Acct: [id number] Name: ALAN PRESSLEY Rep #: [id number] : 1980 Provider: Reyna Prado MD Age/Sex: 36/F Location: [facility] Status: Signed Intake Vital Signs07/29/17 Height 5 ft 7 in 07/29/17 Weight: 223 lb 4 oz 07/29/17 Body Mass Index (BMI) 34.9 07/29/17 Blood Pressure 132/81 Intake Visit Reasons: 36 weeks Chief Complaint: est ob Electronic Heat Seal Operator Required: No Is patient in pain?: Yes Allergies hydrocodone Allergy (Mild, Verified 07/29/17 08:06) Nausea/Vom/Diarrhea povidone-iodine Allergy (Mild, Verified 07/29/17 08:06) Rash azithromycin [From Zithromax Z-Marta] Allergy (Verified 07/29/17 08:06) Upset Stomach Medications Aspirin [Aspirin, Baby] 81 mg PO DAILY@0800 05/02/17 [History Confirmed 07/29/17] vitamin,calcium,rdultnht-iuep-bkrem acid tablet 1 tab PO QDAY 05/06/17 [History Confirmed 07/29/17] Last Menstral Period: 11/13/16 Zika: Zika virus screening: Negative : No PFSH PFSH Medical History (Acute) Surgical History History of appendectomy (Acute) ankle surgery (Acute) knee (Acute) Family History Mother Cancer Lung Aunt Breast cancer Social History Smoking Status: Never smoker alcohol intake: never substance use type: does not use caffeine: Yes what type of physical activity do you participate in: none seatbelt use: always 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 DateName GA/Weeks Outcome Route Bth WeighInfant GeLabor LgtAnesthesiDel LocatProvider FOB t n h a n Delivery Date: 12/07/15 No notes to display Delivery Date: 01/21/12 On 05/06/17 @ 13:52 Elham Reynaga preeclampsia Delivery Date: 04/03/10 No notes to display HPI 36 weeks: Details: ALAN PRESSLEY is a 36 year old who presents for routine OB visit. OB Visit WALKER Calculator Estimated Delivery Date 08/26/17 Based on Ultrasound Date 02/14/17 Current WG 36w 0d Number 1 Expected Delivery Route/Plan plan repeat csection Specific Issue/Plans flu and tdap given MC given Initial Weight: Not Recorded Date Weight BP Urine PrFHR FuHt Pres MoCTX DilationFetal StVisit NoProviderComments E ot v te GA G Effac lucose ed Visit Notes Visit Date: 07/29/17 still having ctx no vb co incerased discharge Reyna Prado MD on 07/29/17 CTX more regular since last night, last 3 hours 5-8 CTX per hour. Good FM. Denies VB, LOF Deedee Weller ASSOCIATE SCIENTIST-C on 07/05/17 CTX more regular since last night, last 3 hours 5-8 CTX per hour. Good FM. Denies VB, LOF Deedee Weller ASSOCIATE SCIENTIST-C on 07/05/17 Visit Date: 07/14/17 CTX more regular since last night, last 3 hours 5-8 CTX per hour. Good FM. Denies VB, LOF Deedee Weller ASSOCIATE SCIENTIST-C on 07/05/17 CTX more regular since last night, last 3 hours 5-8 CTX per hour. Good FM. Denies VB, LOF Deedee Weller ASSOCIATE SCIENTIST-C on 07/05/17 Visit Date: 07/05/17 CTX more regular since last night, last 3 hours 5-8 CTX per hour. Good FM. Denies VB, LOF Deedee Weller ASSOCIATE SCIENTIST-C on 07/05/17 no vb lof good fm n oregular ctx Reyna Prado MD on 06/04/17 no vb lof good fm n oregular ctx Reyna Prado MD on 06/04/17 Visit Date: 06/17/17 co recent N/V and now upper abdominal pain, continuous, feels achy. no vb lof good fm no regular ctx Reyna Prado MD on 05/08/17 Visit Date: 06/03/17 no vb lof good fm n oregular ctx Reyna Prado MD on 06/04/17 co recent N/V and now upper abdominal pain, continuous, feels achy. no vb lof good fm no regular ctx Reyna Prado MD on 05/08/17 Visit Date: 05/06/17 co recent N/V and now upper abdominal pain, continuous, feels achy. no vb lof good fm no regular ctx Reyna Prado MD on 05/08/17 ACOG First Trimester First Trimester: Desire for , Alcohol, Tobacco Cessation, Illicit/Recreational Drug/Substance Use, Intimate Partner Violence, Barriers to care, Unstable Housing, Communication Barriers, Environmental/Work Hazards, Anticipated Course of Care, Toxoplasmosis Precations, Use of Any medications, Sexual activity, Exercise, Dental Care, Sauna/Hot tub use, Seat Belt use, Childbirth classes/Hospital facilities, , Travel, Indications for US and Screening for Aneuploidy Second Trimester Second Trimester: Signs and Symptoms of Labor, Selecting a care provider, Reproductive Life Planning, Care Planning, Tobacco Cessation, Depression/Anxiety and Intimate Partner Violence Diagnostics Diagnostics Labs Hct 35.6 % (37-47) L 07/11/17 Hgb 11.9 g/dl (12.0-15.0) L 07/11/17 Obstetrics Ultrasound 07/10/17 Details: HIV: Urine Culture: Sequential Screen: NIPT Screen: Results [id number] Office Urine Glucose Negative Last Edit by Elham Reynaga on 07/29/17 08:09 Office Urine Protein Negative Last Edit by Elham Reynaga on 07/29/17 08:09 Assessment AND Plan Problems 1. History of GBS (group B streptococcus) UTI, currently O09.899; Z87.440 s/p treatment 2. History of pre-eclampsia in prior , currently in second trimester O09.292 baby ASA daily 3. History of 3 sections Z87.59 plan repeat cs and BTL. plan growth us in third trimester 4. Supervision of other normal Z34.80 PRR WALKER 08/26/17 girl Una Thomas Nia Jonathan 5. Vaginal cyst N89.8 remove PP 6. 36 weeks gestation of Z3A.36 Plan Orders placed: gbs positive movement and labor precautions reviewed. ACOG trimester education reviewed and updated. see problem list details for updated plan management information. GA appropriate handout given. Orders Orders: Coding Level of Care Code OB Routine Diagnoses History of GBS (group B streptococcus) UTI, currently O09.899; Z87.440 History of pre-eclampsia in prior , currently in second trimester O09.292 History of 3 sections Z87.59 Supervision of other normal Z34.80 Vaginal cyst N89.8 36 weeks gestation of Z3A.36 07/29/17 1335 <Electronically signed by Reyna Prado MD> Date Reyna Prado MD Cosigner Signature: Date (if applicable) CC: SHEEP OR CALF GRADER OFFICE VISIT Observed: 07/14/2017 Status: F Source: CARA REPORT 3:18 PM [facility] [address] [place] [address] OFFICE VISIT Date of Service: 07/14/17 MR#: [id number] Acct: [id number] Name: ALAN PRESSLEY Rep #: [id number] : 1980 Provider: Reyna Prado MD Age/Sex: 36/F Location: [facility] Status: Signed Intake Vital Signs07/14/17 Body Mass Index (BMI) 33.7 07/14/17 Blood Pressure 122/75 07/14/17 Height 5 ft 7 in 07/14/17 Weight: 221 lb 4 oz 07/14/17 Body Mass Index (BMI) 34.6 Intake Visit Reasons: EST OB Chief Complaint: est ob Electronic Heat Seal Operator Required: No Is patient in pain?: Yes Allergies hydrocodone Allergy (Mild, Verified 07/12/17 01:13) Nausea/Vom/Diarrhea povidone-iodine Allergy (Mild, Verified 07/12/17 01:13) Rash azithromycin [From Zithromax Z-Marta] Allergy (Verified 07/12/17 01:13) Upset Stomach Medications Aspirin [Aspirin, Baby] 81 mg PO DAILY@0800 05/02/17 [History Confirmed 07/14/17] vitamin,calcium,dipyadkj-ntql-mtouy acid tablet 1 tab PO QDAY 05/06/17 [History Confirmed 07/14/17] Last Menstral Period: 11/13/16 Zika: Zika virus screening: Negative : No PFSH PFSH Medical History (Acute) Surgical History History of appendectomy (Acute) ankle surgery (Acute) knee (Acute) Family History Mother Cancer Lung Aunt Breast cancer Social History Smoking Status: Never smoker alcohol intake: never substance use type: does not use caffeine: Yes what type of physical activity do you participate in: none seatbelt use: always 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 DateName GA/Weeks Outcome Route Bth WeighInfant GeLabor LgtAnesthesiDel LocatProvider FOB t n h a n Delivery Date: 12/07/15 No notes to display Delivery Date: 01/21/12 On 05/06/17 @ 13:52 Elham Reynaga preeclampsia Delivery Date: 04/03/10 No notes to display HPI EST OB: Details: ALAN PRESSLEY is a 36 year old who presents for routine OB visit. OB Visit WALKER Calculator Estimated Delivery Date 08/26/17 Based on Ultrasound Date 02/14/17 Current WG 33w 6d Number 1 Expected Delivery Route/Plan plan repeat csection Specific Issue/Plans flu and tdap given MC given Initial Weight: Not Recorded Date Weight BP Urine PrFHR FuHt Pres MoCTX DilationFetal StVisit NoProviderComments E ot v te GA G Effac lucose ed Visit Notes Visit Date: 07/14/17 CTX more regular since last night, last 3 hours 5-8 CTX per hour. Good FM. Denies VB, LOF Deedee Weller NP-C on 07/05/17 CTX more regular since last night, last 3 hours 5-8 CTX per hour. Good FM. Denies VB, LOF Deedee Weller ASSOCIATE SCIENTIST-C on 07/05/17 Visit Date: 07/05/17 CTX more regular since last night, last 3 hours 5-8 CTX per hour. Good FM. Denies VB, LOF Deedee Weller NP-C on 07/05/17 no vb lof good fm n oregular ctx Reyna Prado MD on 06/04/17 no vb lof good fm n oregular ctx Reyna Prado MD on 06/04/17 Visit Date: 06/17/17 co recent N/V and now upper abdominal pain, continuous, feels achy. no vb lof good fm no regular ctx Reyna Prado MD on 05/08/17 Visit Date: 06/03/17 no vb lof good fm n oregular ctx Reyna Prado MD on 06/04/17 co recent N/V and now upper abdominal pain, continuous, feels achy. no vb lof good fm no regular ctx Reyna Prado MD on 05/08/17 Visit Date: 05/06/17 co recent N/V and now upper abdominal pain, continuous, feels achy. no vb lof good fm no regular ctx Reyna Prado MD on 05/08/17 ACOG First Trimester First Trimester: Desire for , Alcohol, Tobacco Cessation, Illicit/Recreational Drug/Substance Use, Intimate Partner Violence, Barriers to care, Unstable Housing, Communication Barriers, Environmental/Work Hazards, Anticipated Course of Care, Nurtrition and weight gain, Toxoplasmosis Precations, Use of Any medications, Sexual activity, Exercise, Dental Care, Sauna/Hot tub use, Seat Belt use, Childbirth classes/Hospital facilities, , Travel, Indications for US and Screening for Aneuploidy Second Trimester Second Trimester: Signs and Symptoms of Labor, Selecting a care provider, Reproductive Life Planning (vasectomy), Care Planning, Tobacco Cessation, Depression/Anxiety and Intimate Partner Violence Assessment AND Plan Problems 1. History of GBS (group B streptococcus) UTI, currently O09.899; Z87.440 s/p treatment 2. History of 3 sections Z87.59 plan repeat cs and BTL. plan growth us in third trimester 3. History of pre-eclampsia in prior , currently in second trimester O09.292 baby ASA daily 4. Vaginal cyst N89.8 remove PP 5. Supervision of other normal Z34.80 WALKER 08/26/17 girl Una Thomas Nia Jonathan 6. 33 weeks gestation of Z3A.33 Plan Orders placed: none ACOG trimester education reviewed and updated. see problem list details for updated plan management information. [place] appropriate handout given. Orders Orders: Results [id number] Office Urine Glucose Negative Last Edit by Elham Reynaga on 07/14/17 14:51 Office Urine Protein Negative Last Edit by Elham Reynaga on 07/14/17 14:51 Coding Level of Care Code OB Routine Diagnoses History of GBS (group B streptococcus) UTI, currently O09.899; Z87.440 History of 3 sections Z87.59 History of pre-eclampsia in prior , currently in second trimester O09.292 Vaginal cyst N89.8 Supervision of other normal Z34.80 33 weeks gestation of Z3A.33 07/14/17 1518 <Electronically signed by Reyna Prado MD> Date Reyna Prado MD Cosigner Signature: Date (if applicable) CC: 12 LEAD ELECTROCARDIOGRAM Observed: 07/12/2017 Status: F Source: CARA 1:45 PM [facility] REPOSITORY [facility] Cardiovascular Services [address] [place] [address] 12 Lead EKG 07/11/176 MR#: [id number] Acct: [id number] Name: ALAN PRESSLEY Rep #: [id number] : 1980 36 From: Mike Stratton MD Attending Dr: Status: DEP ER Ordering Dr: Mila Jose MD Date: 07/11/17 Location: ED Sex: F C Admitted: Test Reason : Blood Pressure : / mmHG Vent. Rate : 080 BPM Atrial Rate : 080 BPM P-R Int : 180 ms QRS Dur : 090 ms QT Int : 344 ms P-R-T Axes : 071 078 065 degrees QTc Int : 396 ms Normal sinus rhythm with sinus arrhythmia Normal ECG Confirmed by CAROL WONG, MIKE ([id number]), editor farm journal JHOAN HELM ([id number]) on 07/12/2017 1:45:21 PM Referred By: BIMAL Confirmed By:MIKE STRATTON MD 07/12/17 1345 Date Mike Stratton MD CC: No Primary Care Physician; Mila Jose MD Signed EMERGENCY DEPARTMENT Observed: 07/12/2017 Status: F Source: TYRONE SUMMARY 2:33 AM [facility] Medical Records Department [address] [place] [address] Emergency Department Summary 07/12/17 0019 MR#: [id number] Acct: [id number] Name: ALAN PRESSLEY Rep #: [id number] : 1980 36 From: Mila Jose MD PCP: Care Physician, No Primary Status: DEP ER - ER Visit Summary Date of Service: 07/12/17 Chief Complaint: Chest pain History of Present Illness: The patient is a 36 F who is currently 33 weeks . Patient reports having reflux symptoms all day and now has is across her upper chest and feels short of breath. She has no pleuritic pain. She is no prior cardiac history or history of PE. She is feeling appropriate movement. Physical Examination: Vital signs in triage include a blood pressure of 137/79. The time of my examination blood pressure is 118/76. Other vitals are normal. Head and neck examination is unremarkable. Heart is regular rate and rhythm. Lung sounds are clear with good air movement. Abdomen is soft and gravid. Patient has no significant ankle edema. Test Results: EKG is sinus 80 with no sign of acute ischemia. Portable chest x-ray is unremarkable. CBC was a white count that is normal and hemoglobin 11.9. Chemistry studies are unremarkable. Troponin is less than 0.02. Emergency Department Course and Treatment: Patient remained stable throughout her ER stay. On review of records I did note that she had gotten a Celestone shot the last 2 days. On repeat evaluation she is resting comfortably. She now states that her chest pain is corresponding to when she is having contractions. She had not mentioned having contractions previously. She now tells me that she was actually admitted overnight for observation 2 nights ago secondary to Barber Cano contractions. This led them to giving her the steroid shot to help the baby's lungs mature. I spoke with the patient's SHEEP OR CALF GRADER, Dr. Raejsh Miles. Patient will be sent to labor and delivery for nonstress test. Treatment Plan: [] Disposition: Discharge Impression: Atypical chest pain 33 week This note was generated with [employer] dictation software. It may contain incorrect words, spelling, and punctuation that were not noted in review of the chart prior to signing ED Disposition - Plan for ED Patient: Disposition: Home or Assisted Living Chief Complaint: Chest Pain Instructions: ED Chest Pain NonCardiac Referrals: Reyna Prado MD [STAFF PHYSICIAN] - What to do if you have Problems For any increased pain, shortness of breath, bleeding, nausea or vomiting, chest pain, or any unexpected problems, contact your Primary Care Provider. Call [facility] ([phone]) or report to the closest Emergency Room. Call 911 if necessary. 07/12/17 0233 <Electronically signed by Mila Jose MD> Date Mila Jose MD Cosigner Signature (If Indicated): Date CC: No Primary Care Physician DISCHARGE INSTRUCTION Observed: 07/12/2017 Status: F Source: CRAA 12:20 AM [facility] REPOSITORY [facility] Medical Records Department [address] [place] [address] Discharge Instruction 07/12/17 0019 MR#: [id number] Acct: [id number] Name: ALAN PRESSLEY Rep #: [id number] : 1980 36 From: Mila Jose MD PCP: Care Physician, No Primary Status: REG ER ED Disposition - Plan for ED Patient: Disposition: Home or Assisted Living Chief Complaint: Chest Pain Instructions: ED Chest Pain NonCardiac Referrals: Reyna Prado MD [STAFF PHYSICIAN] - What to do if you have Problems For any increased pain, shortness of breath, bleeding, nausea or vomiting, chest pain, or any unexpected problems, contact your Primary Care Provider. Call [facility] ([phone]) or report to the closest Emergency Room. Call 911 if necessary. 07/12/17 0020 <Electronically signed by Mila Jose MD> Date Mila Jose MD Cosigner Signature (If Indicated): Date CC: No Primary Care Physician CBC W/DIFF, AUTOMATED Collected: 07/11/2017 Status: F Source: CARA 11:17 PM [facility] REPOSITORY TYPE CODE TESTS RESULT OUT OF RANGE REFERENCE UNITS LAB L100.1000 4.4-11.0 K/mm3 Normal WBC 7.0 LAB L100.1200 4.2-5.4 M/mm3 Low RBC 4.00 LAB L100.1300 12.0-15.0 g/dl Low HGB 11.9 LAB L100.1400 37-47 % Low HCT 35.6 LAB L100.1500 81-99 fL Normal MCV 89.0 LAB L100.1600 27.0-32.0 pg Normal MCH 29.8 LAB L100.1700 32-36 g/gl Normal MCHC 33.4 LAB L100.1810 11.6-14.6 % Normal RDW CV 13.1 LAB L100.1820 35.1-43.9 fl Normal RDW SD 41.2 LAB L100.1900 150-450 K/mm3 Normal PLT 200 LAB L100.2000 6.2-12.0 fl Normal MPV 10.2 LAB L100.2100 47-70 % High NEUT% 72.9 LAB L100.2200 19-41 % Normal LY% 19.5 LAB L100.2300 0-10 % Normal MONO% 7.4 LAB L100.2400 0-5 % Normal EO% 0.0 LAB L100.2500 0-1 % Normal BASO% 0.1 LAB L100.2550 0.0-0.9 % Normal IM GRAN % 0.100 Result Comment: IG% - Immature Granulocytes (promyelocytes, myelocytes and metamyelocytes) > 1% indicates that a LEFT SHIFT is Present. LAB L100.2620 2.0-7.7 X10 3/uL Normal Absolute Neut 5.1 LAB L100.2720 0.83-4.51 X10 3/ul Normal Absolute Lymph 1.37 Performed By: #### L100.0100 #### [facility] [address] [place], [address] BASIC METABOLIC Collected: 07/11/2017 Status: F Source: TYRONE PROFILE ([facility]) 11:17 PM [facility] REPOSITORY Order Comment: 'TROP' Serial specimen #1, #2, #3, or #4: 1 TYPE CODE TESTS RESULT OUT OF RANGE REFERENCE UNITS LAB L501.0100 74-106 mg/dL High GLU 110 Result Comment: Fasting Glucose result from 100 to 125 mg/dL suggests IMPAIRED HOMEOSTASIS per A.D.A. criteria. Please note revised GLUCOSE reference range effective 2017. LAB L501.1000 7-18 mg/dL Normal BUN 13 LAB L501.1100 0.55-1.02 mg/dL Low CREAT,SERUM 0.52 Result Comment: The validity of the calculated GFR AND GFRAA in patients over 70 years has not been determined. Clinical correlation is essential. LAB L501.1110 >60 mL/min Normal EST GFR 141 Result Comment: Non- GFR Calc LAB L501.1115 >60 mL/min Normal EST GFR - AA 171 Result Comment: GFR Calc LAB L501.1255 ml/min Normal Estimated CRCL 148.24 LAB L501.1300 10-20 RATIO High BUN/CRE 24.8 LAB L501.2200 8.5-10 mg/dL .1 CA Normal 9.3 LAB L501.5300 136-14 mmol/L 5 NA Normal 143 LAB L501.5600 3.5-5. mmol/L 1 K Normal 3.6 LAB L501.5900 98-107 mmol/L High CL 109 LAB L501.6100 21.0-3 mmol/L 2.0 CO2 Normal 23.0 LAB L501.6200 5-15 GAP Normal 11 Performed By: #### L500.2500, L501.4010 #### [facility] [address] [place], [address] TROPONIN-I Collected: 07/11/2017 Status: F Source: TYRONE 11:17 PM [facility] REPOSITORY Order Comment: 'TROP' Serial specimen #1, #2, #3, or #4: 1 TYPE CODE TESTS RESULT OUT OF RANGE REFERENCE UNITS LAB L501.4010 <0.06 ng/mL Normal < 0.02 TROPONIN-I Result Comment: TROPONIN-I EXPECTED VALUES <0.05 NEGATIVE 0.06 - 0.59 AT RISK OF CA > OR = 0.60 SUGGEST CA Performed By: #### L500.2500, L501.4010 #### [facility] [address] [place], [address] CHEST 1 VIEW Observed: 07/11/2017 Status: F Source: TYRONE (PORTABLE) 10:56 PM [facility] REPOSITORY [facility] Imaging Services [address] [address] [place] [address] Chest 1 View (Portable) MR#: [id number] Acct: [id number] Name: ALAN PRESSLEY Rep #: [id number] : 1980 F 36 From: Sixto Fan DO PCP: Care Physician, No Primary Status: REG ER Study: Chest 1 View (Portable) Date of Exam: 07/11/17 Exam# [id number] Ordering Dr: Mila Jose MD STUDY: X-RAY CHEST REASON FOR EXAM: Female, 36 years old. Chest pain TECHNIQUE: Single frontal view COMPARISON: None. FINDINGS: The lungs are clear and expanded. There is no demonstrated pleural abnormality. Prominent cardiac shadow. Normal mediastinum and jose a. Normal visualized pulmonary arteries. Normal visualized aortic arch and descending thoracic aorta. Normal visualized thoracic spine. Normal visualized ribs, clavicles, and shoulders. There is no demonstrated abnormality of the visualized soft tissue structures of the upper abdomen. RAD/Chest 1 View (Portable) IMPRESSION: Normal x-ray examination of the chest. Electronically Signed: Sixto Odom DO at 23:28 EST Tel [phone], Service support , CC: No Primary Care Physician; Mila Jose MD Energy Professional: Signed OB LIMITED (NO Observed: 07/10/2017 Status: F Source: [employer]) 7:28 AM [facility] REPOSITORY [facility] Imaging Services [address] [place] [address] OB Limited (No Biometrics) MR#: [id number] Acct: [id number] Name: ALAN PRESSLEY Rep #: [id number] : 1980 F 36 From: Saad Schumacher DO PCP: Care Physician, No Primary Status: REG CLI Study: OB Limited (No Biometrics) Date of Exam: 07/10/17 Exam# [id number] Ordering Dr: Reyan Prado MD STUDY: SECOND AND THIRD TRIMESTER OBSTETRICAL ULTRASOUND - LIMITED REASON FOR EXAM: Female, 36 years old. Growth. LMP: November 19, 2016. PRIOR ULTRASOUND: April 04, 2017. TECHNIQUE: Transabdominal and transvaginal ultrasound evaluation was performed. FINDINGS: There is a single intrauterine fetus. The fetus is in a cephalic presentation. There is demonstrated cardiac activity with a heart rate of 139 bpm. There is a normal amniotic fluid volume. The largest amniotic fluid pocket measures 7.01 cm. The amniotic fluid index (MARCOS) is 14.6 cm. The placenta is fundal in location. There are Grade 0 placental changes. The cervix measures 4 cm in length. BIOMETRY: BPD: 8.12 cm: 32 weeks, 5 days HC: 31.17 cm: 35 weeks, 0 days AC: 31.06 cm: 35 weeks, 1 days FL: 6.52 cm: 33 weeks, 5 days Age by LMP: 33 weeks, 2 days. WALKER by LMP: August 26, 2017.. age by prior US: 33 weeks, 1 days. WALKER by prior US: August 27, 2017.. age by current US: 34 weeks, 1 days. WALKER by current US: August 20, 2017. Estimated weight: 2414 grams, +/- 352 grams, 75 percentile. US/OB Limited (No Biometrics) IMPRESSION: 1. Live single intrauterine of 34 weeks, 1 day. WALKER is August 20, 2017. This been adequate interval growth since the prior ultrasound. 2. EFW 2414 g. 3. MARCOS of 14.6 cm. 4. Fundal grade 0 placenta. 5. Vertex presentation. Electronically Signed: Saad Schumacher DO at 8:50 EST Tel [phone], Service support , CC: No Primary Care Physician; Reyna Prado MD Energy Professional: Signed URINALYSIS, COMPLETE Collected: 07/09/2017 Status: F Source: CARA 8:50 PM [facility] REPOSITORY Order Comment: How was Urine Obtained? CLEAN CATCH TYPE CODE TESTS RESULT OUT OF RANGE REFERENCE UNITS LAB L400.3000 Yellow COLOR Normal Straw LAB L400.3050 Clear Normal CLARITY Clear LAB L400.3200 Normal mg/dl High GLUCOSE, UR 1000 LAB L400.3300 Negative mg/dL Normal BILIRUBIN URINE Negative LAB L400.3400 Negative mg/dl Normal KETONE UR Negative LAB L400.3465 1.002-1.030 Normal SP.GR. DIPSTX 1.010 LAB L400.3550 5.0 - 8.0 pH UR Normal 7.0 LAB L400.3600 Negative mg/dl PROT Normal DIPSTX Negative LAB L400.3700 Normal mg/dl Normal UROBILI Normal LAB L400.3750 Negative Normal NITRITE UR Negative LAB L400.3780 Negative /ul Normal OCCULT BLOOD-UR Negative LAB L400.3800 Negative /ul LEUK Normal ESTERASE Negative LAB L400.4050 0-5 /hpf WBC 0 Normal SEEN LAB L400.4100 0-5 /hpf 0 Normal RBC-UA SEEN LAB L400.4150 5-10 /hpf SQUAM Normal EPI 0-5 SEEN LAB L400.4300 None Seen /hpf 0 Normal BACTERIA SEEN LAB L400.4350 <or=2+ /hpf 0 Normal MUCUS, URINE SEEN Performed By: #### L400.0001 #### [facility] [address] [place], [address] FIBRONECTIN Collected: 07/09/2017 Status: F Source: CARA 7:35 PM [facility] REPOSITORY TYPE CODE TESTS RESULT OUT OF RANGE REFERENCE UNITS LAB L205.0100 Normal fFN Negative Performed By: #### L205.0000 #### [facility] [address] [place], [address] SHEEP OR CALF GRADER OFFICE VISIT Observed: 07/05/2017 Status: F Source: TYRONE REPORT 3:52 PM [facility] REPOSITORY [facility] [address] [place] [address] OFFICE VISIT Date of Service: 07/05/17 MR#: [id number] Acct: [id number] Name: ALAN PRESSLEY Rep #: [id number] : 1980 Provider: MAGGIE Weller Age/Sex: 36/F Location: [facility] Status: Signed Intake Vital Signs07/05/17 Height 5 ft 7 in 07/05/17 Weight: 215 lb 8 oz 07/05/17 Body Mass Index (BMI) 33.7 07/05/17 Blood Pressure 122/75 Intake Visit Reasons: est ob Chief Complaint: est ob Electronic Heat Seal Operator Required: No Is patient in pain?: No Allergies hydrocodone Allergy (Mild, Verified 06/22/17 17:52) Nausea/Vom/Diarrhea povidone-iodine Allergy (Mild, Verified 06/22/17 17:52) Rash Medications Aspirin [Aspirin, Baby] 81 mg PO DAILY@0800 05/02/17 [History Confirmed 06/22/17] vitamin,calcium,mthucngy-xsfu-tcdsa acid tablet 1 tab PO QDAY 05/06/17 [History Confirmed 06/22/17] Last Menstral Period: 11/13/16 Zika: Zika virus screening: Negative : No PFSH PFSH Medical History (Acute) Surgical History History of appendectomy (Acute) ankle surgery (Acute) knee (Acute) Family History Mother Cancer Lung Aunt Breast cancer Social History Smoking Status: Former smoker alcohol intake: never substance use type: does not use caffeine: Yes what type of physical activity do you participate in: none seatbelt use: always 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 DateName GA/Weeks Outcome Route Bth WeighInfant GeLabor LgtAnesthesiDel LocatProvider FOB t n h a n Delivery Date: 12/07/15 No notes to display Delivery Date: 01/21/12 On 05/06/17 @ 13:52 Elham Reynaga preeclampsia Delivery Date: 04/03/10 No notes to display HPI est ob: Details: ALAN PRESSLEY is a 36 year old who presents for routine OB visit. OB Visit WALKER Calculator Estimated Delivery Date 08/26/17 Based on Ultrasound Date 02/14/17 Current WG 32w 4d Number 1 Expected Delivery Route/Plan plan repeat csection Specific Issue/Plans flu and tdap given MC given Initial Weight: Not Recorded Date Weight BP Urine PrFHR FuHt Pres MoCTX DilationFetal StVisit NoProviderComments E ot v te GA G Effac lucose ed Visit Notes Visit Date: 07/05/17 CTX more regular since last night, last 3 hours 5-8 CTX per hour. Good FM. Denies VB, LOF NORM [place] on 07/05/17 no vb lof good fm n oregular ctx Reyna Prado MD on 06/04/17 no vb lof good fm n oregular ctx Reyna Prado MD on 06/04/17 Visit Date: 06/17/17 co recent N/V and now upper abdominal pain, continuous, feels achy. no vb lof good fm no regular ctx Reyna Prado MD on 05/08/17 Visit Date: 06/03/17 no vb lof good fm n oregular ctx Reyna Prado MD on 06/04/17 co recent N/V and now upper abdominal pain, continuous, feels achy. no vb lof good fm no regular ctx Reyna Prado MD on 05/08/17 Visit Date: 05/06/17 co recent N/V and now upper abdominal pain, continuous, feels achy. no vb lof good fm no regular ctx Reyna Prado MD on 05/08/17 Assessment AND Plan Problems 1. Supervision of other normal Z34.80 WALKER 08/26/17 girl Una Thomas Nia Jonathan 2. 32 weeks gestation of Z3A.[address] Prado. To for evaluation. Orders Orders: Results [id number] Office Urine Glucose Negative Last Edit by Elham Reynaga on 07/05/17 15:32 Office Urine Protein Negative Last Edit by Elham Reynaga on 07/05/17 15:32 Coding Level of Care Code OB Routine Diagnoses Supervision of other normal Z34.80 32 weeks gestation of Z3A.32 07/05/17 1552 <Electronically signed by Deedee ZHENG> Date Deedee Weller ASSOCIATE SCIENTIST-C Cosigner Signature: Date (if applicable) CC: SHEEP OR CALF GRADER OFFICE VISIT Observed: 06/27/2017 Status: F Source: CARA REPORT 12:00 AM [facility] [address] [place], [place] [address]gi. [address] [place] [address] OFFICE VISIT Date of Service: 06/17/17 MR#: [id number] Acct: [id number] Name: ALAN PRESSLEY Rep #: [id number] : 1980 Provider: Reyna Prado MD Age/Sex: 36/F Location: [facility] Status: Signed Intake Vital Signs06/17/17 Height 5 ft 7 in 06/17/17 Weight: 212 lb 8 oz 06/17/17 Body Mass Index (BMI) 33.3 06/17/17 Blood Pressure 114/72 Intake Visit Reasons: (OB) Chief Complaint: est ob Is patient in pain?: Yes Allergies hydrocodone Allergy (Mild, Verified 06/22/17 17:52) Nausea/Vom/Diarrhea povidone-iodine Allergy (Mild, Verified 06/22/17 17:52) Rash Medications Aspirin [Aspirin, Baby] 81 mg PO DAILY@0800 05/02/17 [History Confirmed 06/22/17] vitamin,calcium,krbbgiqk-ldkn-zxkua acid tablet 1 tab PO QDAY 05/06/17 [History Confirmed 06/22/17] Last Menstral Period: 11/13/16 Zika: Zika virus screening: Negative : No PFSH PFSH Medical History (Acute) Surgical History History of appendectomy (Acute) ankle surgery (Acute) knee (Acute) Family History Mother Cancer Lung Aunt Breast cancer Social History Smoking Status: Former smoker alcohol intake: never substance use type: does not use caffeine: Yes what type of physical activity do you participate in: none seatbelt use: always 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 DateName GA/Weeks Outcome Route Bth WeighInfant GeLabor LgtAnesthesiDel LocatProvider FOB t n h a n Delivery Date: 12/07/15 No notes to display Delivery Date: 01/21/12 On 05/06/17 @ 13:52 Elham Reynaga preeclampsia Delivery Date: 04/03/10 No notes to display HPI (OB): Details: ALAN PRESSLEY is a 36 year old who presents for routine OB visit. OB Visit WALKER Calculator Estimated Delivery Date 08/26/17 Based on Ultrasound Date 02/14/17 Current WG 31w 2d Number 1 Expected Delivery Route/Plan plan repeat csection Specific Issue/Plans flu and tdap given MC given Initial Weight: Not Recorded Date Weight BP Urine PrFHR FuHt Pres MoCTX DilationFetal StVisit NoProviderComments E ot v te GA G Effac lucose ed Visit Notes Visit Date: 06/17/17 co recent N/V and now upper abdominal pain, continuous, feels achy. no vb lof good fm no regular ctx Reyna Prado MD on 05/08/17 Visit Date: 06/03/17 no vb lof good fm n oregular ctx Reyna Prado MD on 06/04/17 co recent N/V and now upper abdominal pain, continuous, feels achy. no vb lof good fm no regular ctx Reyna Prado MD on 05/08/17 Visit Date: 05/06/17 co recent N/V and now upper abdominal pain, continuous, feels achy. no vb lof good fm no regular ctx Reyna Prado MD on 05/08/17 Assessment AND Plan Medications Discontinued: amoxicillin-pot clavulanate 875-125 mg (Augm1 tab PO Q12H 10 days J01.90 Background Marlon coburn) Discontinued Reason: By Stop Date Coding Level of Care Code OB Routine 06/27/17 0000 <Electronically signed by Reyna Prado MD> Date Reyna Prado MD Cosigner Signature: Date (if applicable) CC: URGENT CARE VISIT Observed: 06/22/2017 Status: F Source: CARA REPORT 6:14 PM [facility] REPOS[facility] [address] [place] [address] OFFICE VISIT Date of Service: 06/22/17 MR#: [id number] Acct: [id number] Name: ALAN PRESSLEY Rep #: [id number] : 1980 Provider: Fred HANNON Age/Sex: 36/F Location: [facility] Status: Signed Intake Vital Signs06/22/17 Height 5 ft 7 in Intake Visit Reasons: cold Is patient in pain?: No Allergies hydrocodone Allergy (Mild, Verified 06/22/17 17:52) Nausea/Vom/Diarrhea povidone-iodine Allergy (Mild, Verified 06/22/17 17:52) Rash Medications Aspirin [Aspirin, Baby] 81 mg PO DAILY@0800 05/02/17 [History Confirmed 06/22/17] vitamin,calcium,txngjzty-ufyg-nkhbn acid tablet 1 tab PO QDAY 05/06/17 [History Confirmed 06/22/17] [facility] Medical History (Acute) Surgical History History of appendectomy (Acute) ankle surgery (Acute) knee (Acute) Family History Mother Cancer Lung Aunt Breast cancer Social History Smoking Status: Former smoker alcohol intake: never substance use type: does not use caffeine: Yes what type of physical activity do you participate in: none seatbelt use: always 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 Patient has no complaints fever, chills, sweats, rash, chest pain/shortness of breath. Patient is particularly concerned because she is currently . Patient is a non-smoker and notes her immunizations are up-to-date. No other associated symptoms no alleviating or aggravating factors. ROS Const Constitutional: No excessive sweating, abnormal sleep pattern, chills, fever(s), night sweats or body ache Eyes Eyes: No change in vision ENT ENT: Positive for ear pressure; no abnormal hearing, ear pain, ear discharge, hearing loss, sinus pressure or post nasal drip Resp Respiratory: No cough or chest congestion Cardio Cardiology: No excessive sweating, chest pain at rest, chest pain with exertion, shortness of breath, dyspnea on exertion, irregular heart rhythm, generalized swelling or leg pain with exertion Gastro GI: No abdominal pain, change in stool character or change in bowel habits Musc Musculoskeletal: No joint pain, back pain or limited range of motion Skin Skin: No change in hair or sores Neuro Neurology: No abnormal hearing, abnormal speech or abnormal movements Psych Psychiatric: No abnormal sleep pattern Endo Endocrine: No excessive sweating, change in body appearance, cold intolerance or heat intolerance Aller/Imm Allergy/Immunologic: No food intolerance Everette/Lymp Hematologic/Lymphatic: No easy bruising Exam Const General: cooperative, healthy appearing, no acute distress, comfortable Nutritional Appearance: average body habitus Orientation: alert, awake, oriented x3 HENMT Head: normal to inspection Ears: hearing grossly normal bilaterally, external ears normal, TM's normal bilaterally, EAC's normal Nose: external nose normal, nares normal, septum normal, nasal discharge clear Face and sinus: normal facial exam, sinuses nontender, face symmetric Mouth: oral mucosae normal, lip normal, tongue normal, oropharynx normal Teeth and gingiva: dentition normal, gingiva normal Throat: posterior oropharynx normal, tonsils normal, uvula midline Eyes General: appearance normal, both eyes and all related structures Neck Neck: normal visual inspection, full ROM, no lymphadenopathy, no meningeal signs, supple Neck mass: No Thyroid: thyroid normal Lymphatic: no lymphadenopathy noted Chest Chest palpation AND inspection: normal inspection of the chest Resp Effort AND Inspection: normal respiratory effort, able to speak in complete sentences, symmetric chest movement Auscultation: Bilateral: Clear to Auscultation Cardio Palpation: normal PMI Rate: regular rate Rhythm: regular rhythm Heart Sounds: S1 normal, S2 normal, no gallops, no murmurs, no rubs Pulses: radial pulses present GI Inspection: normal to inspection Palpation: soft, no hepatosplenomegaly Skin General: no rashes or lesions noted Neuro General: alert, awake, oriented x3, gait normal Cognition: normal cognition Speech: speech normal Gait: normal gait Motor: muscle tone normal throughout Sensory Exam: no sensory deficits noted Extrem General: normal to inspection Psych Appearance: grossly normal Mental Status: mental status grossly normal Mood: congruent mood Affect: normal affect Speech and Movement: speech and movement normal Attitude: cooperative Thought Process: normal Thought Content: normal Judgment: judgment good Assessment AND Plan Problems 1. URI (upper respiratory infection) J06.9 Plan Patient refused both rapid strep and rapid flu on operating, as patient states she probably would not be receptive to either antibiotics or Tamiflu should either of those test results become positive. Clear fluids, rest, Tylenol as needed for symptomatic relief. Follow-up with PCP or SHEEP OR CALF GRADER in the next 3-5 days should symptoms not improved, sooner should symptoms worsen or any other concerns develop. Patient states knowledge and understanding all the above. This note was generated with [employer] dictation software. It may contain incorrect words, spelling, and punctuation that were not noted in checking the note before signing. Coding Level of Care Code Off vis,est,level 3 Diagnoses URI (upper respiratory infection) J06.9 06/22/17 9209 <Electronically signed by Fred HANNON> Date Fred HANNON Cosigner Signature: Date (if applicable) CC: GESTATIONAL GTT 3HR Collected: 06/13/2017 Status: F Source: CARA 100G 7:20 AM [facility] REPOSITORY Order Comment: Is Patient Fasting? Y TYPE CODE TESTS RESULT OUT OF RANGE REFERENCE UNITS LAB L501.0650 <105 mg/dL Normal GLU 87 GTT-FASTING Result Comment: GLUCOSE TOLERANCE TEST FOR Reference Interval GESTATIONAL DIABETES Fasting <105 mg/dL 1 hour <190 mg/dl 2 hour <165 mg/dl 3 hour <145 mg/dl LAB L501.0660 <190 mg/dL Normal GLU GTT- 1HR 176 LAB L501.0670 <165 mg/dL Normal GLU GTT- 2HR 148 LAB L501.0680 <145 L Normal GLU GTT- 3HR 101 Performed By: #### L500.4710 #### [facility] [address] [place], [address] CBC W/DIFF, AUTOMATED Collected: 06/13/2017 Status: F Source: CARA 7:17 AM [facility] REPOSIT[facility] TYPE CODE TESTS RESULT OUT OF RANGE REFERENCE UNITS LAB L100.1000 4.4-11.0 K/mm3 Normal WBC 6.6 LAB L100.1200 4.2-5.4 M/mm3 Low RBC 4.10 LAB L100.1300 12.0-15.0 g/dl Normal HGB 12.5 LAB L100.1400 37-47 % Low HCT 36.7 LAB L100.1500 81-99 fL Normal MCV 89.5 LAB L100.1600 27.0-32.0 pg Normal MCH 30.5 LAB L100.1700 32-36 g/gl Normal MCHC 34.1 LAB L100.1810 11.6-14.6 % Normal RDW CV 13.2 LAB L100.1820 35.1-43.9 fl Normal RDW SD 42.6 LAB L100.1900 150-450 K/mm3 Normal PLT 227 LAB L100.2000 6.2-12.0 fl Normal MPV 9.8 LAB L100.2100 47-70 % High NEUT% 71.1 LAB L100.2200 19-41 % Normal LY% 20.4 LAB L100.2300 0-10 % Normal MONO% 7.4 LAB L100.2400 0-5 % Normal EO% 0.6 LAB L100.2500 0-1 % Normal BASO% 0.2 LAB L100.2550 0.0-0.9 % Normal IM GRAN % 0.300 Result Comment: IG% - Immature Granulocytes (promyelocytes, myelocytes and metamyelocytes) > 1% indicates that a LEFT SHIFT is Present. LAB L100.2620 2.0-7.7 X10 3/uL Normal Absolute Neut 4.7 LAB L100.2720 0.83-4.51 X10 3/ul Normal Absolute Lymph 1.35 Performed By: #### L100.0100 #### [facility] [address] [place], [address] BEDSIDE GLUCOSE Collected: 06/13/2017 Status: F Source: CARA 7:14 AM [facility] REPOSITORY TYPE CODE TESTS RESULT OUT OF RANGE REFERENCE UNITS LAB L501.080 70-110 mg/dL Normal BEDSIDE GLU 96 Result Comment: MANAGEMENT OF PATIENT CARE PER NURSING PROTOCOL Performed By: #### L501.080 #### [facility] Point of Care [address] [place] [address] SHEEP OR CALF GRADER OFFICE VISIT Observed: 06/04/2017 Status: F Source: CARA REPORT 9:43 PM [facility] REPOSITORY [facility] [address] [place] [address] OFFICE VISIT Date of Service: 06/03/17 MR#: [id number] Acct: [id number] Name: ALAN PRESSLEY Rep #: [id number] : 1980 Provider: Reyna Prado MD Age/Sex: 36/F Location: [facility] Status: Signed Intake Vital Signs06/04/17 Blood Pressure 110/70 Intake Visit Reasons: (OB) Allergies hydrocodone Allergy (Mild, Verified 05/20/17 08:18) Nausea/Vom/Diarrhea povidone-iodine Allergy (Mild, Verified 05/20/17 08:18) Rash Medications Aspirin [Aspirin, Baby] 81 mg PO DAILY@0800 05/02/17 [History Confirmed 05/02/17] vitamin,calcium,hfyuzgbv-buqt-fesbr acid tablet 1 tab PO QDAY 05/06/17 [History Confirmed 05/06/17] Last Menstral Period: 11/13/16 [facility] Medical History Supervision of other normal (Acute) Vaginal cyst (Acute) History of pre-eclampsia in prior , currently in second trimester (Acute) History of GBS (group B streptococcus) UTI, currently (Acute) Sinusitis (Acute) (Acute) Surgical History History of appendectomy (Acute) ankle surgery (Acute) knee (Acute) Family History Mother Cancer Lung Aunt Breast cancer Social History Smoking Status: Former smoker alcohol intake: never substance use type: does not use caffeine: Yes what type of physical activity do you participate in: none seatbelt use: always 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 DateName GA/Weeks Outcome Route Bth WeighInfant GeLabor LgtAnesthesiDel LocatProvider FOB t n h a n Delivery Date: 12/07/15 No notes to display Delivery Date: 01/21/12 On 05/06/17 @ 13:52 Elham Reynaga preeclampsia Delivery Date: 04/03/10 No notes to display HPI (OB): Details: ALAN PRESSLEY is a 36 year old who presents for routine OB visit. Assessment AND Plan Problems 1. Supervision of other normal Z34.80 WALKER 08/26/17 girl Una Thomas Nia Jonathan 2. History of section Z98.891 3. History of GBS (group B streptococcus) UTI, currently O09.899; Z87.440 s/p treatment 4. History of 3 sections Z87.59 plan repeat cs and BTL. plan growth us in third trimester 5. History of pre-eclampsia in prior , currently in second trimester O09.292 baby ASA daily 6. Vaginal cyst N89.8 remove PP Plan Orders placed: tdap ACOG trimester education reviewed and updated. see problem list details for updated plan management information. GA appropriate handout given. Orders Orders: Medications Discontinued: Boostrix Tdap (diphth,pertus(acell),tetanus) Dis0.5 mL IM ONCE NS Z23 Elham Reynaga continued Reason: Office Medication has been Docum ented as given OB Visit WALKER Calculator Estimated Delivery Date 08/26/17 Based on Ultrasound Date 02/14/17 Current WG 28w 1d Number 1 Estimated Due Date: 08/26/17 Expected Delivery Route/Plan plan repeat csection Specific Issue/Plans flu and tdap given MC given Initial Weight: Not Recorded Date Weight BP Urine PrFHR FuHt Pres MoCTX DilationFetal StVisit NoProviderComments E ot v te GA G Effac lucose ed Visit Notes Visit Date: 06/03/17 no vb lof good fm n oregular ctx Reyna Prado MD on 06/04/17 co recent N/V and now upper abdominal pain, continuous, feels achy. no vb lof good fm no regular ctx Reyna Prado MD on 05/08/17 Visit Date: 05/06/17 co recent N/V and now upper abdominal pain, continuous, feels achy. no vb lof good fm no regular ctx Reyna Prado MD on 05/08/17 Immunizations Boostrix Tdap Performing Provider: Reyna Prado MD Administered by: Elham Reynaga on 06/03/17 17:20 Dose Route Admin Location Lot Number Expiration Date NDC Lead Ios Developer 0.5 mL IM Left Arm (SQ) [id number] 01/19/19 09325-181-78 [employer] VIS Given Date VIS Publication Date 06/03/17 07/23/14 Eligibility Eligibility Date 06/04/17 2143 <Electronically signed by Reyna Prado MD> Date Reyna Prado MD Cosigner Signature: Date (if applicable) CC: URGENT CARE VISIT Observed: 05/20/2017 Status: F Source: CARA REPORT 8:35 AM [facility] RE[facility] [address] [place] [address] OFFICE VISIT Date of Service: 05/20/17 MR#: [id number] Acct: [id number] Name: ALAN PRESSLEY Rep #: [id number] : 1980 Provider: Nicola HANNON Age/Sex: 36/F Location: [facility] Status: Signed Intake Vital Signs05/20/17 Height 5 ft 7 in 05/20/17 Weight: 208 lb 05/20/17 Body Mass Index (BMI) 32.5 Intake Visit Reasons: Sinus infection Electronic Heat Seal Operator Required: No Accompanied by: Self Is patient in pain?: No Allergies hydrocodone Allergy (Mild, Verified 05/20/17 08:18) Nausea/Vom/Diarrhea povidone-iodine Allergy (Mild, Verified 05/20/17 08:18) Rash Medications Aspirin [Aspirin, Baby] 81 mg PO DAILY@0800 05/02/17 [History Confirmed 05/02/17] vitamin,calcium,twxmbzbs-dixi-xctjb acid tablet 1 tab PO QDAY 05/06/17 [History Confirmed 05/06/17] amoxicillin 875 mg-potassium clavulanate 125 mg tablet 1 tab PO Q12H 10 Days #20 tab 05/20/17 [Rx Confirmed 05/20/17] PFSH Medical History Supervision of other normal (Acute) Vaginal cyst (Acute) History of pre-eclampsia in prior , currently in second trimester (Acute) History of GBS (group B streptococcus) UTI, currently (Acute) (Acute) Surgical History History of appendectomy (Acute) ankle surgery (Acute) knee (Acute) Family History Mother Cancer Lung Aunt Breast cancer Social History Smoking Status: Former smoker alcohol intake: never substance use type: does not use caffeine: Yes what type of physical activity do you participate in: none seatbelt use: always 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 Patient states that she has been on amoxicillin for the past 5 days as well for a left ear infection. She reports that the ear no longer causes any pain however her left sinus cavity which she localizes to the maxillary sinuses has been causing her pain. She did try Sudafed last night with no relief. She denies fever, chills, sweats. No nausea, vomiting, diarrhea. No other associated symptoms or alleviating/aggravating factors. ROS Const Constitutional: Positive for headache(s); no fever(s), chills, night sweats or abnormal sleep pattern ENT ENT: Positive for headache(s), nasal congestion, sinus pressure, sinus pain and nasal discharge; no ear pain Resp Respiratory: No cough or shortness of breath Cardio Cardiology: No shortness of breath, irregular heart rhythm or fast heart rate Neuro Neurology: Positive for headache(s); no confusion Psych Psychiatric: No abnormal sleep pattern, No confusion Exam Const General: cooperative HENMT Head: normal to inspection Ears: hearing grossly normal bilaterally, TM's normal bilaterally Nose: nasal discharge purulent Face and sinus: sinus tenderness frontal and maxillary Mouth: oral mucosae normal Throat: abnormal tonsil bilaterally, postnasal drainage Resp Effort AND Inspection: normal respiratory effort Auscultation: Bilateral: Clear to Auscultation Cardio Rate: regular rate Rhythm: regular rhythm Neuro General: alert, CN's II-XI intact bilaterally Psych Appearance: grossly normal Mental Status: mental status grossly normal Assessment AND Plan 1. Acute non-recurrent maxillary sinusitis J01.00; J01.00 Status Acute Plan Patient advised to discontinue use of amoxicillin and instead use Augmentin. Encouraged to get plenty of rest, drink lots of clear liquids, and use Tylenol or Ibuprofen (unless contraindicated) for fever and comfort. Patient also educated on other symptomatic management techniques. To be seen in 7-10 days if no improvement; sooner if worsening of symptoms. Patient advised of potential red flags and when appropriate report to the ED. Patient verbalized understanding all the above. Plan Detail Other Medications New: Coding Level of Care Code Off vis,est,level 3 Diagnoses Acute non-recurrent maxillary sinusitis J01.00; J01.00 Sinusitis location: maxillary Chronicity: acute Recurrence: non-recurrent 05/20/17 0835 <Electronically signed by Nicola HANNON> Date Nicola HANNON Cosigner Signature: Date (if applicable) CC: ALLERGIES ALLERGIES DATE TYPE / CODE NAME / CODE REACTION SEVERITY SOURCE 04/26/2018 Drug azithromycin/F0060 Upset Stomach Unknown [place] Allergy/416 23075(RXNORM) [facility] 887942([facility] ED CT) Repository 04/21/2018 Drug hydrocodone/B28646 Nausea/Vom/Diar [place] Allergy/416 1554(RXNORM) brett [facility] 174694([facility] ED CT) Repository 04/21/2018 Drug povidone-iodine/F0 Rash CA [place] Allergy/416 21312370(RXNORM) [facility] 766484([facility] ED CT) Repository 03/24/2018 DRUG AZITHROMYCIN STOMACH PAINS [address] [address]([facility] Repository ED [facility]) 03/22/2018 DRUG IODINE Rash if on the [address] [address]([facility] Repository ED CT) 03/22/2018 DRUG/826032 HYDROCODONE-ACETAM migraines [facility] 003([facility] CT) Repository 12/15/2013 DRUG/142282 HYDROCODONE-ACETAM Vomiting [facility] 003([facility] CT) Repository 11/10/2013 DRUG AZITHROMYCIN OTHER: SEE C [address] [address]([facility] Repository ED CT) ENCOUNTERS ENCOUNTERS ADMIT/DISCHARGE ACCOUNT ADMITTING ENCOUNTER LOCATION SOURCE NUMBER CLASS 05/01/2018/05/01/20 [id number] Ambulatory [address] Repository 04/27/2018 [id number] Ambulatory BMSBuilding:Tyson Marroquin [facility] Repository 04/27/2018/04/27/20 [id number] Ambulatory [address] ing:SDCRoom: Repository AC14 04/18/2018/04/18/20 [id number] Ambulatory Building:[address] Repository 04/06/2018/04/07/20 [id number] Ambulatory [address] Repository 03/22/2018/03/22/20 [id number] Ambulatory Building:[address] Repository 03/22/2018/03/22/20 [id number] Ambulatory Building:[address] Repository 02/08/2018/02/09/20 [id number] Ambulatory BMSBuilding:B [place] 18 [facility] Repository 01/11/2018/01/12/20 [id number] Ambulatory BMSBuilding:B [place] 18 [facility] Repository 12/04/2017/12/05/19 [id number] Ambulatory BMSBuilding:B [place] 18 [facility] Repository 10/19/2017/10/20/19 [id number] Ambulatory [address] ing:WPOUT Repository 10/08/2017/10/09/19 [id number] Ambulatory [address] ing:WPOUT Repository 09/19/2017/09/20/19 [id number] Ambulatory BMSBuilding:B [place] 18 [facility] Repository 08/22/2017/08/23/19 [id number] Ambulatory BMSBuilding:B [place] 18 [facility] Repository 08/05/2017 [id number] Ambulatory BMSBuilding:B [place] MS.[facility] Repository 08/05/2017/08/09/19 [id number] Sofi, Inpatient [place] Cara 18 Reyna [facility] ing:WPRoom: Repository QM296Inl: 1 08/05/2017 [id number] Sofi, Ambulatory BMSBuilding:B Cara Orellana MS.[facility] Repository 08/05/2017 [id number] Sofi, Ambulatory BMSBuilding:Berenice Cara Orellana MS.[facility] Repository 08/05/2017 [id number] [place], Ambulatory BMSBuilding:Berenice Orellana MS.[facility] Hospital Repository 08/05/2017 [id number] [place], Ambulatory BMSBuilding:Berenice Orellana MS.[facility] Repository 08/02/2017/08/03/19 [id number] Ambulatory BMSBuilding:Berenice Cara 18 [facility] Hospital Repository 08/02/2017 [id number] Ambulatory [facility] Hospital ing:US Repository 07/29/2017/07/30/19 [id number] Ambulatory BMSBuilding:Berenice Cara 18 MS[facility] Repository 07/19/2017 [id number] Ambulatory BMSBuilding:Berenice Marroquin MS.CF.[facility] Repository 07/18/2017 [id number] Ambulatory BMSBuilding:Berenice Marroquin MS.[facility] Repository 07/14/2017/07/14/19 [id number] Ambulatory BMSBuilding:Berenice Marroquin 18 [facility] Repository 07/12/2017/07/12/19 [id number] Ambulatory [address] Hospital ing:WPOUTRoom Repository : WP013 07/11/2017/07/12/19 [id number] Emergency [address] Hospital ing:ED Repository 07/10/2017/07/10/19 [id number] Ambulatory [address] Hospital ing:WPOUTRoom Repository : WP011 07/10/2017 [id number] Ambulatory BMSBuilding:Berenice Marroquin MS.[facility] Hospital Repository 07/09/2017/07/10/19 [id number] Ambulatory [address] Hospital ing:WPOUTRoom Repository : WP013 07/06/2017 [id number] Ambulatory BMSBuilding:Berenice Marroquin MS.CF.[facility] Repository 07/05/2017/07/05/19 [id number] Ambulatory [address] Hospital ing:WPOUTRoom Repository : WP012 07/05/2017/07/05/19 [id number] Ambulatory BMSBuilding:B [place] 18 [facility] Repository 06/22/2017/06/22/19 [id number] Ambulatory BMSBuilding:B [place] 18 [facility] Repository 06/17/2017 [id number] Ambulatory BMSBuilding:B Cara MS[facility] Repository 06/13/2017 [id number] Ambulatory [facility] ing:LAB Repository 06/06/2017 [id number] Ambulatory [facility] ing:LAB Repository 06/03/2017/06/03/19 [id number] Ambulatory BMSBuilding:B [place] 18 [facility] Repository 05/27/2017 [id number] Ambulatory BMSBuilding:B Cara MS[facility] Repository 05/20/2017/05/20/20 [id number] Ambulatory BMSBuilding:B [place] 17 [facility] Repository PAYERS PAYERS ENCOUNTER GUARANTOR PAYER SUBSCRIBER SOURCE 04/27/2018 JANIS Correa Primary ALAN Marroquin [id number] Insurance:ANTHEMPolic MARHEVKADOB: [facility] Number: [id number] [id number] Repository [address]Kkh: (216) Date:3113-67-36GZ [phone] () [id number], [place] [address]HI: 04/27/2018 Secondary NOT GIVENUNK [place] Insurance:SELF PAY [facility] Number: Effective Repository Date:2018-04-27 04/27/2018 JANIS Correa Primary ALAN Marroquin [id number] Insurance:ANTHEMPolic MARHEVKADOB: [facility] [place] Number: [id number], [place] [id number] Repository 30[address]Mxx: (216) Date:9822-29-88FH [phone] () [id number], [place] [address]KF: 04/27/2018 Secondary NOT GIVENUNK [place] Insurance:SELF PAY [facility] Number: Effective Repository Date:2018-02-14 04/18/[address] [facility]AN [facility] HEALTHRAJESHB: Insurance:ANTHEMPolic [facility]: [facility] y Number: [id number] Repository ADRIEL [id number] 1 ADRIEL MOSES MD Date: AURELIA [place] [address]Vku: (330) [phone] () (WP) 03/22/[address] [facility] ALAN Spears [facility] CONFL[facility] HEALTHRAJESHB: Insurance:ANTHEMPolic MARHEVKADOB: [facility] y Number: [id number] Repository [facility] [id number] 1 ADRIEL MOSES MD Date: AURELIA [place] [address]Fba: (330) [phone] (HP) (WP) 03/22/[address] [facility] ALAN [facility]ars [facility] Insurance:ANTHEMPolic [facility]: [facility] y Number: [id number] Repository ADRIEL [id number] 1 ADRIEL MOSES MD Date: AURELIA [place] [address]Cgc: (330) [phone] () (WP) 02/08/2018 JANIS Correa [facility] ALAN Marroquin [id number] Insurance:ANTHEMPolic MARHEVKADOB: [facility] ADRIEL y Number: [id number] [facility] [place] [id number] Repository 228[address]Bzw: 216) Date:6855-65-63SR [phone] (HP) 163230RRMFDBD, [place] [address]YN: 02/08/2018 Secondary NOT GIVENUNK [place] Insurance:SELF PAY [facility] Number: Effective Repository Date:2018-02-08 [facility]/11/2018 [facility] [id number] Insurance:ANTHEMPolic MARHEVKADOB: Community ADRIEL y Number: [id number], [place] [id number] Repository [address]67[address]Kog: (216) Date:2751-60-12WK [phone] () 561755BOACHXY [place] [address]RB: 01/11/2018 Secondary NOT GIVENUNK [place] Insurance:SELF PAY [facility] Number: Effective Repository Date:2018-01-11 12/04/2017 [facility] [id number] Insurance:ANTHEMPolic MARHEVKADOB: Community ADRIEL y Number: [id number], [place] [id number] Repository [address]Iag: (216) Date:6201-04-84HA [phone] () 710382KCILTTD [place] [address]UK: 12/04/2017 Secondary NOT GIVENUNK [place] Insurance:SELF PAY [facility] Number: Effective Repository Date:2017-12-04 10/19/2017 [facility] ALAN [id number] Insurance:ANTHEMPolic MARHEVKADOB: Community ADRIEL y Number: [id number], [place] [id number] Repository [address]Qhc: (216) Date:3849-76-01RW [phone] () [id number] [place] [address]XR: 10/19/2017 Secondary NOT GIVENUNK [place] Insurance:SELF PAY [facility] Number: Effective Repository Date:2017-10-19 10/08/2017 [facility] ALAN [id number] Insurance:ANTHEMPolic MARHEVKADOB: Community ADRIEL y Number: [id number], [place] [id number] Repository [address]Rdn: (216) Date:0659-43-52TI [phone] () 155622DHFDDES, [place] [address]YR: 10/08/2017 Secondary NOT GIVENUNK [place] Insurance:SELF PAY [facility] Number: Effective Repository Date:2017-10-08 09/19/2017 [facility] ALAN [id number] Insurance:ANTHEMPolic MARHEVKADOB: Community ADRIEL y Number: [id number], [place] [id number] Repository [address]Ngu: (216) Date:7773-56-98GY [phone] () 625155AYEPLQOTARYN MARINO [address]NR: 09/19/2017 Secondary NOT GIVENUNK [place] Insurance:SELF PAY [facility] Number: Effective Repository Date:2017-09-19 08/22/2017 [facility] ALAN [id number] Insurance:ANTHEMPolic MARHEVKADOB: Community ADRIEL y Number: [id number], [place] [id number] Repository [address]Tex: (216) Date:2600-60-09JP [phone] () 714601OCAVGGG, [place] [address]DU: 08/22/2017 Secondary NOT GIVENUNK [place] Insurance:SELF PAY [facility] Number: Effective Repository Date:2017-08-22 08/05/2017 [facility] ALAN [id number] Insurance:ANTHEMPolic MARHEVKADOB: Community ADRIEL y Number: [id number], [place] [id number] Repository [address]Itk: Date:2297-40-14TC [phone] 388375YHYVCOUTARYN MARINO -4 (HP) [address]GK: 08/05/2017 Secondary NOT GIVENUNK [place] Insurance:SELF PAY [facility] Number: Effective Repository Date:2017-07-29 08/05/2017 [facility] [id number] Insurance:ANTHEMPolic MARHEVKADOB: Community ADRIEL y Number: [id number], [place] [id number] Repository [address]Suo: Date:4215-60-79UL [phone] [id number], [place] -4 () [address]SZ: 08/05/2017 Secondary NOT GIVENUNK [place] Insurance:SELF PAY [facility] Number: Effective Repository Date:2017-08-04 08/05/2017 Janis [facility] ALAN [id number] Insurance:ANTHEMPolic MARHEVKADOB: [facility] ADRIEL y Number: [id number], [place] [id number] Repository [address]Xth: Date:6057-76-76LD [phone] [id number], [place] -4 () [address]ON: 08/05/2017 Secondary NOT GIVENUNK [place] Insurance:SELF PAY [facility] Number: Effective Repository Date:2017-08-05 08/05/2017 Janis [facility] ALAN [id number] Insurance:ANTHEMPolic MARHEVKADOB: [facility] [place] Number: [id number], [place] [id number] Repository [address]Hee: Date:0556-24-55PU [phone] [id number], [place] -4 () [address]LS: 08/05/2017 Secondary NOT GIVENUNK [place] Insurance:SELF PAY [facility] Number: Effective Repository Date:2017-08-05 08/05/2017 [facility] [id number] Insurance:ANTHEMPolic MARHEVKADOB: [facility] [place] Number: [id number], [place] [id number] Repository [address]Wch: Date:2122-91-59XJ [phone] 161044LRRFFNATARYN DILLARD () [address]OS: 08/05/2017 Secondary NOT GIVENUNK [place] Insurance:SELF PAY [facility] Number: Effective Repository Date:2017-08-05 08/05/2017 [facility] ALAN [id number] Insurance:ANTHEMPolic MARHEVKADOB: Community ADRIEL y Number: [id number], [place] [id number] Repository [address]Mij: Date:4561-60-91AH [phone] [id number] DILLARD () [address]JV: 08/05/2017 Secondary NOT GIVENUNK [place] Insurance:SELF PAY [facility] Number: Effective Repository Date:2017-08-05 08/02/2017 [facility] ALAN [id number] Insurance:ANTHEMPolic MARHEVKADOB: Community ADRIEL y Number: [id number], [place] [id number] Repository [address]Fts: Date:9770-18-36WZ [phone] [id number] DILLARD () [address]JF: 08/02/2017 Secondary NOT GIVENUNK [place] Insurance:SELF PAY [facility] Number: Effective Repository Date:2017-08-02 08/02/2017 [facility] ALAN [id number] Insurance:ANTHEMPolic MARHEVKADOB: Community ADRIEL y Number: [id number], [place] [id number] Repository [address]Elt: Date:3306-89-92GI [phone] 049653HMUMGDD, [place] -4 () [address]IK: 08/02/2017 Secondary NOT GIVENUNK [place] Insurance:SELF PAY [facility] Number: Effective Repository Date:2017-07-29 07/29/2017 [facility] ALAN Marroquin [id number] Insurance:ANTHEMPolic MARHEVKADOB: Community ADRIEL y Number: [id number], [place] [id number] Repository [address]Mma: Date:2958-95-38ON [phone] 093468BAFSAMF, [place] () [address]SX: 07/29/2017 Secondary NOT GIVENUNK [place] Insurance:SELF PAY [facility] Number: Effective Repository Date:2017-07-14 07/19/2017 [facility] ALAN [id number] Insurance:ANTHEMPolic MARHEVKADOB: [facility] ADRIEL y Number: [id number], [place] [id number] Repository [address]Hkt: Date:7071-28-83GN [phone] [id number], [place] () [address]YD: 07/19/2017 Secondary NOT GIVENUNK [place] Insurance:SELF PAY [facility] Number: Effective Repository Date:2017-07-19 07/18/[address] [facility] ALAN [id number] Insurance:ANTHEMPolic MARHEVKADOB: [facility] ADRIEL y Number: [id number], [place] [id number] Repository [address]89[address]Ted: 330) Date:2454-87-33CZ [phone] () 625620ETHFPPG [place] [address]NE: 07/18/2017 Secondary NOT GIVENUNK [place] Insurance:SELF PAY [facility] Number: Effective Repository Date:2017-07-05 07/14/2017 [facility] ALAN [id number] Insurance:ANTHEMPolic MARHEVKADOB: Community ADRIEL y Number: [id number], [place] [id number] Repository 100[address]Rrx: Date:4789-68-70GN [phone] [id number] MARINO4 () [address]YV: 07/14/2017 Secondary NOT GIVENUNK [place] Insurance:SELF PAY [facility] Number: Effective Repository Date:2017-07-06 07/12/2017 [facility] ALAN Marroquin [id number] Insurance:ANTHEMPolic MARHEVKADOB: Community ADRIEL y Number: [id number], [place] [id number] Repository 180[address]Owc: Date:8767-59-20TD [address] [phone] 254335IEMLLKZTARYN MARINO () [address]VL: 07/12/2017 Secondary NOT GIVENUNK [place] Insurance:SELF PAY [facility] Number: Effective Repository Date:2017-07-12 07/11/2017 [facility] ALAN Marroquin [id number] Insurance:ANTHEMPolic MARHEVKADOB: Community ADRIEL y Number: [id number], [place] [id number] Repository [address]Fnt: Date:6680-05-15VU [address] [phone] 131000ZCWOBNSTARYN DILLARD () [address]ER: 07/11/2017 Secondary NOT GIVENUNK [place] Insurance:SELF PAY [facility] Number: Effective Repository Date:2017-07-11 07/10/[address] [facility] ALAN [id number] Insurance:ANTHEMPolic MARHEVKADOB: Community ADRIEL y Number: [id number], [place] [id number] Repository [address]Qld: (330) Date:8054-94-98AF [phone] () 091882FKJVMSN, [place] [address]VL: 07/10/2017 Secondary NOT GIVENUNK [place] Insurance:SELF PAY [facility] Number: Effective Repository Date:2017-07-10 07/10/2017 [facility] Primary ALAN [id number] Insurance:ANTHEMPolic MARHEVKADOB: [facility] [place] Number: [id number], [place] [id number] Repository [address]Lsu: (330) Date:0017-82-36NZ [phone] () 390086REIRJIN [place] [address]MK: 07/10/2017 Secondary NOT GIVENUNK [place] Insurance:SELF PAY [facility] Number: Effective Repository Date:2017-07-10 07/09/2017 [facility] Primary ALAN [id number] Insurance:ANTHEMPolic MARHEVKADOB: [facility] [place] Number: [id number], [place] [id number] Repository 38[address]Jmc: (330) Date:4507-94-15CL [phone] () [id number] [place] [address]OA: 07/09/2017 Secondary NOT GIVENUNK [place] Insurance:SELF PAY [facility] Number: Effective Repository Date:2017-07-09 07/06/2017 [facility] Primary ALAN [id number] Insurance:ANTHEMPolic MARHEVKADOB: [facility] [place] Number: [id number], [place] [id number] Repository 964[address]Cey: (330) Date:9888-93-84ZX [phone] () 689786VREZHKL [place] [address]ZH: 07/06/2017 Secondary NOT GIVENUNK [place] Insurance:SELF PAY [facility] Number: Effective Repository Date:2017-07-06 07/05/2017 ALAN Primary ALAN [id number] Insurance:ANTHEMPolic MARHEVKADOB: [facility] [place] Number: [id number], [place] [id number] Repository 609[address]Nqr: (330) Date:3118-47-43ZG [phone] () 546705VJZHLEOTARYN MARINO [address]SN: 07/05/2017 Secondary NOT GIVENUNK [place] Insurance:SELF PAY [facility] Number: Effective Repository Date:2017-07-05 07/05/2017 [facility] Primary ALAN [id number] Insurance:ANTHEMPolic MARHEVKADOB: Community ADRIEL y Number: [id number], [place] [id number] Repository 029[address]Qzx: (330) Date:2404-30-40HC [phone] () 046118WOPQOTPTARYN MARINO [address]GS: 07/05/2017 Secondary NOT GIVENUNK [place] Insurance:SELF PAY [facility] Number: Effective Repository Date:2017-06-17 06/22/2017 [facility] Primary ALAN [id number] Insurance:ANTHEMPolic MARHEVKADOB: [facility] ADRIEL y Number: [id number], [place] [id number] Repository 74464Pxy: (330) Date:3499-73-96WA [phone] () [id number] MARINO [address]OU: 06/22/2017 Secondary NOT GIVENUNK [place] Insurance:SELF PAY [facility] Number: Effective Repository Date:2017-06-22 06/17/2017 [facility] Primary ALAN [id number] Insurance:ANTHEMPolic MARHEVKADOB: [facility] ADRIEL y Number: [id number], [place] [id number] Repository 601[address]Vme: (330) Date:7239-20-38FR [phone] () [id number] MARINO [address]BL: 06/17/2017 Secondary NOT GIVENUNK [place] Insurance:SELF PAY [facility] Number: Effective Repository Date:2017-06-03 06/13/2017 [facility] Primary ALAN [id number] Insurance:ANTHEMPolic MARHEVKADOB: Community ADRIEL y Number: [id number], [place] [id number] Repository 84[address]Lrw: (330) Date:0006-95-04JA [phone] () TARYN IRWIN [address]YQ: 06/13/2017 Secondary NOT GIVENUNK [place] Insurance:SELF PAY [facility] Number: Effective Repository Date:2017-06-06 06/06/2017 [facility] Primary ALAN [place] [id number] Insurance:ANTHEMPolic MARHEVKADOB: [facility] ADRIEL y Number: [id number], [place] [id number] Repository 83736Enj: (330) Date:5468-01-89GP [phone] () TARYN IRWIN [address]NB: 06/06/2017 Secondary NOT GIVENUNK [place] Insurance:SELF PAY [facility] Number: Effective Repository Date:2017-06-06 06/03/2017 [facility] Cara [id number] Insurance:ANTHEMPolic MARHEVKADOB: Community ADRIEL y Number: [id number], [place] [id number] Repository 01868Juw: (330) Date:5826-73-46GP [phone] () 117920ZSPQLZWTARYN MARINO [address]HH: 06/03/2017 Secondary NOT GIVENUNK [place] Insurance:SELF PAY [facility] Number: Effective Repository Date:2017-05-19 05/27/2017 [facility] Primary ALAN Cara [id number] Insurance:ANTHEMPolic MARHEVKADOB: Community ADRIEL y [id number] [id number] Repository [id number]: ([phone]) Date:[id number] [phone] () [id number] MARINO 297[address]NS: 05/27/2017 Secondary NOT GIVENUNK [place] Insurance:SELF PAY [facility] Number: Effective Repository Date:2017-05-01 05/20/2017 ALAN Primary ALAN Cara [id number] [facility] [place]: [id number] [id number] Repository [id number]: ([phone]) Date:[id number] [phone] () [id number], [place] [address]UL: 05/20/2017 Secondary NOT GIVENUNK Cara Insurance:SELF PAY [facility] Number: Effective Repository Date:2017-05-20
== END 2018-04-27 16:00 | disposition home or self-care (01) ==
LOC: SDC 10:27 → AC 10:28
PROVIDERS: Referring Provider Obstetrics & Gynecology; Visit Provider Obstetrics & Gynecology
PROC: (CPT 56740; principal; 2018-04-27 11:45)
DX: Q52.4 Other congenital malformations of vagina (principal); Z87.891 Personal history of nicotine dependence
CPT/HCPCS: 57135; 36415; 81025; 85027; 86850; 86900; 88305; J7120; J2405

== ENCOUNTER 2018-09-09 16:55 | Emergency (ER) | payer BC, SELFPAY ==
[2018-06-07 09:01] VITALS: BMI 28.8
[2018-09-09 16:56] VITALS: BP 141/81; PULSE 80; RESP 16; TEMP 36.8; O2SAT 98; BMI 29.1
--- NOTE | 2018-09-09 17:35 | RAD_ITS ---
STUDY: X-RAY - LEFT KNEE REASON FOR EXAM: Female, 37 years old. Medial left knee pain. Runner. TECHNIQUE: 5 view(s) of the knee. COMPARISON: None. FINDINGS: Normal visualized distal femur. Normal visualized proximal tibia and fibula. Normal proximal tibiofibular articulation. Normal medial femorotibial compartment. Normal lateral femorotibial compartment. Normal patellofemoral articulation. The soft tissue structures are unremarkable. RAD/Knee 4 or More Views IMPRESSION: Normal x-ray examination of the knee. Electronically Signed: Wandy Bolivar MD at 17:53 EDT Tel , Service support ,
--- NOTE | 2018-09-09 18:34 | ED.VIS.GEN ---
History of Present Illness Chief Complaint: Lower Extremity Injury Informant: Patient Onset: Days - Several days with onset Tuesday Context: Onset with activity - After wanting to get into shape Timing: Continuous Quality: Aching pain Location: left knee Current Severity: Mild Maximum Severity: Moderate Worsened by: Movement and weightbearing Relieved by: better with rest Associated Symptoms: No associated symptoms Narrative: Patient is a 37-year-old woman who presents with knee pain that she localizes below the patella. This occurred after running. She states she is having trouble walking or moving her left knee. She denies any other symptoms. Prior similar symptoms: No Recent Illness/Hospitalization: No Past Medical History - Allergies and Home Meds Allergies/Adverse Reactions: Allergies povidone-iodine Allergy (Mild, Verified 09/09/18 16:59) Rash hydrocodone Adverse Reaction (Mild, Verified 09/09/18 16:59) Nausea/Vom/Diarrhea azithromycin [From Zithromax Z-Nadeem] Adverse Reaction (Verified 09/09/18 16:59) Upset Stomach Primary Care Physician: Care Physician,No Primary [Primary Care Provider] - Prior records reviewed: Yes - No significant past medical history Lives: Spouse/ Significant Other Smoking Status: Never smoker Drugs: None Review of Systems General: Denies: Chills, Fever, Malaise, Sweats, Weight loss Musculoskeletal: Reports: Extremity Pain. Denies: Myalgias, Arthralgias, Neck pain, Back pain, Swelling Skin: Denies: Rash, Wounds Hematologic: Denies: Easy bruising, Easy bleeding Physical Exam Vital Signs/Narrative: Vital Signs Temp Pulse Resp BP Pulse Ox 09/09/18 16:56 98.3 F 80 16 141/81 H 98 Inital Vital Signs reviewed: Yes General: Well nourished, Well developed, No Acute Distress Extremities: No edema, - - She is able to extend 180 degrees. Is able to flex to 100 degrees before experiencing discomfort. The patella is not ballotable. There is no effusion. There is no laxity with varus valgus stress testing. There is negative laxity with Ana Luisa's test. Modified Jonathan's test causes pain medially. There is no click. There is discomfort in the popliteal fossa. DP and PT pulse are palpable.. Negative for: Nontender Skin: Normal color, No rash Neurological: Alert, Oriented x3, Cranial nerves II-XII grossly intact, Normal Strength, Normal Sensation Psychological: Normal affect, Normal Mood Diagnostic/Tx/Re-eval Chest X-Ray - ED: Read by ED Physician, - - 4 view x-ray of the knee was reviewed by me and negative for any abnormality. Impressions Knee X-Ray 09/09/18 17:35 IMPRESSION: Normal x-ray examination of the knee. 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 Will obtain x-ray to rule out any bony normality. None was noted. Therefore she was discharged with prescription for anti-inflammatory and referral to Dr. Dread Jacobs. ED Disposition - Plan for ED Patient: Disposition: Home or Assisted Living Diagnosis: Left knee pain Instructions: ED Meniscal Injury Knee Poss Prescriptions: Naproxen [Naprosyn] 500 mg PO BID #14 tablet Referrals: Care Physician,No Primary [Primary Care Provider] - Dread Jacobs DO [STAFF PHYSICIAN] - 5-7 Days Additional Instructions: Your prescription was electronically transmitted to [facility] your designated pharmacy of choice
--- NOTE | 2018-09-09 18:38 | ED.DCSUM_ITS ---
History of Present Illness Chief Complaint: Lower Extremity Injury Informant: Patient Onset: Days - Several days with onset Tuesday Context: Onset with activity - After wanting to get into shape Timing: Continuous Quality: Aching pain Location: left knee Current Severity: Mild Maximum Severity: Moderate Worsened by: Movement and weightbearing Relieved by: better with rest Associated Symptoms: No associated symptoms Narrative: Patient is a 37-year-old woman who presents with knee pain that she localizes below the patella. This occurred after running. She states she is having trouble walking or moving her left knee. She denies any other symptoms. Prior similar symptoms: No Recent Illness/Hospitalization: No Past Medical History - Allergies and Home Meds Allergies/Adverse Reactions: Allergies povidone-iodine Allergy (Mild, Verified 09/09/18 16:59) Rash hydrocodone Adverse Reaction (Mild, Verified 09/09/18 16:59) Nausea/Vom/Diarrhea azithromycin [From Zithromax Z-Nadeem] Adverse Reaction (Verified 09/09/18 16:59) Upset Stomach Primary Care Physician: Care Physician,No Primary [Primary Care Provider] - Prior records reviewed: Yes - No significant past medical history Lives: Spouse/ Significant Other Smoking Status: Never smoker Drugs: None Review of Systems General: Denies: Chills, Fever, Malaise, Sweats, Weight loss Musculoskeletal: Reports: Extremity Pain. Denies: Myalgias, Arthralgias, Neck pain, Back pain, Swelling Skin: Denies: Rash, Wounds Hematologic: Denies: Easy bruising, Easy bleeding Physical Exam Vital Signs/Narrative: Vital Signs Temp Pulse Resp BP Pulse Ox 09/09/18 16:56 98.3 F 80 16 141/81 H 98 Inital Vital Signs reviewed: Yes General: Well nourished, Well developed, No Acute Distress Extremities: No edema, - - She is able to extend 180 degrees. Is able to flex to 100 degrees before experiencing discomfort. The patella is not ballotable. There is no effusion. There is no laxity with varus valgus stress testing. There is negative laxity with Ana Luisa's test. Modified Jonathan's test causes pain medially. There is no click. There is discomfort in the popliteal fossa. DP and PT pulse are palpable.. Negative for: Nontender Skin: Normal color, No rash Neurological: Alert, Oriented x3, Cranial nerves II-XII grossly intact, Normal Strength, Normal Sensation Psychological: Normal affect, Normal Mood Diagnostic/Tx/Re-eval Chest X-Ray - ED: Read by ED Physician, - - 4 view x-ray of the knee was reviewed by me and negative for any abnormality. Impressions Knee X-Ray 09/09/18 17:35 IMPRESSION: Normal x-ray examination of the knee. 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 Will obtain x-ray to rule out any bony normality. None was noted. Therefore she was discharged with prescription for anti-inflammatory and referral to Dr. Dread Jacobs. ED Disposition - Plan for ED Patient: Disposition: Home or Assisted Living Diagnosis: Left knee pain Instructions: ED Meniscal Injury Knee Poss Prescriptions: Naproxen [Naprosyn] 500 mg PO BID #14 tablet Referrals: Care Physician,No Primary [Primary Care Provider] - Derad Jacobs DO [STAFF PHYSICIAN] - 5-7 Days Additional Instructions: Your [facility] was [facility] your designated pharmacy of choice
== END 2018-09-09 18:51 | disposition home or self-care (01) ==
PROVIDERS: Emergency Provider Emergency Medicine
DX: M25.562 Pain in left knee (principal)
CPT/HCPCS: 73564; 99282

== ENCOUNTER → 2018-12-07 12:35 | Outpatient (CLI) | payer BC, SELFPAY ==
[2018-11-27 15:36] VITALS: BMI 29.1
--- NOTE | 2018-12-07 12:36 | US_ITS ---
STUDY: ULTRASOUND TRANSVAGINAL CLINICAL: Female, 38 years old. Menorrhagia. TECHNIQUE: Transvaginal (Transvaginal imaging performed for enhanced visualization of uterus and endometrium, and posterior adnexal structures). COMPARISON: None. FINDINGS: Uterus is retroverted in the midline measuring 8.9 x 7.0 x 5.4 cm with normal myometrial echotexture. The endometrium measures 11 mm, normal echotexture. Normal cervix. Minimal cul-de-sac free fluid is likely physiologic in this age group. There is no adnexal free fluid. Right ovary 28 x 23 x 26 mm, left ovary 32 x 29 x 26 mm. Each exhibits normal echotexture and vascularity. Dominant follicle left ovary measures 1.8 x 2.4 cm, simple cystic features and most likely to represent a normal physiologic dominant follicle. Multiple follicular features of the right ovary with several cysts aligned in a string of pearls pattern around the periphery of the ovary, subserosal. In some cases this may reflect a manifestation of polycystic ovary syndrome. US/Transvaginal Non- IMPRESSION: Normal myometrium and endometrium. No acute abnormality of the ovaries or adnexa. Multi-follicular features of the right ovary may be normal but could reflect a manifestation of polycystic ovary syndrome. Correlate clinically for any signs or symptoms. Electronically Signed: Steffen Robins MD at 9:15 EDT Tel , Service support ,
--- NOTE | 2018-12-07 12:36 | US_ITS ---
STUDY: ULTRASOUND TRANSVAGINAL CLINICAL: Female, 38 years old. Menorrhagia. TECHNIQUE: Transvaginal (Transvaginal imaging performed for enhanced visualization of uterus and endometrium, and posterior adnexal structures). COMPARISON: None. FINDINGS: Uterus is retroverted in the midline measuring 8.9 x 7.0 x 5.4 cm with normal myometrial echotexture. The endometrium measures 11 mm, normal echotexture. Normal cervix. Minimal cul-de-sac free fluid is likely physiologic in this age group. There is no adnexal free fluid. Right ovary 28 x 23 x 26 mm, left ovary 32 x 29 x 26 mm. Each exhibits normal echotexture and vascularity. Dominant follicle left ovary measures 1.8 x 2.4 cm, simple cystic features and most likely to represent a normal physiologic dominant follicle. Multiple follicular features of the right ovary with several cysts aligned in a string of pearls pattern around the periphery of the ovary, subserosal. In some cases this may reflect a manifestation of polycystic ovary syndrome. US/Pelvic (Non ) IMPRESSION: Normal myometrium and endometrium. No acute abnormality of the ovaries or adnexa. Multi-follicular features of the right ovary may be normal but could reflect a manifestation of polycystic ovary syndrome. Correlate clinically for any signs or symptoms. Electronically Signed: Steffen Robins MD at 9:15 EDT Tel , Service support ,
== END ==
PROVIDERS: Referring Provider Nurse Practitioner Women's Health; Visit Provider Nurse Practitioner Women's Health
DX: N92.0 Excessive and frequent menstruation with regular cycle (principal)
CPT/HCPCS: 76830; 76856; 93976

== ENCOUNTER → 2019-09-11 15:15 | Outpatient (CLI) | payer BC, SELFPAY ==
[2019-06-24 11:13] VITALS: BMI 25.9
[2019-09-11 15:59] LABS: Thyroid Stim Hormone (TSH) 0.73 uIU/mL (0.358-3.74)
[2019-09-13 20:06] LABS: DHEA Sulfate 451.2 ug/dL (57.3-279.2)
[2019-09-13 20:33] LABS: Testosterone Free 4.1 pg/mL (0.0-4.2)
== END ==
PROVIDERS: Referring Provider Nurse Practitioner Women's Health; Visit Provider Nurse Practitioner Women's Health
DX: L68.0 Hirsutism (principal)
CPT/HCPCS: 36415; 82627; 84402; 84443; 82626

== ENCOUNTER → 2019-11-20 11:37 | Outpatient (CLI) | payer BC, SELFPAY ==
[2019-11-20 11:35] VITALS: BMI 25.9
[2019-11-20 13:01] LABS: HIV - WCH Non-Reactive (Nonreactive)
[2019-11-20 19:24] LABS: Chlamydia Trachomatis by PCR Negative (Negative); Neisserai gonorrhoeae by PCR Negative (Negative); Probe Check PASS; Sample Adequacy Control PASS; Specimen Processing Control PASS
[2019-11-22 02:00] LABS: Rapid Plasmin Reagin (RPR) NONREACTIVE (NONREACTIVE)
[2019-11-22 15:08] LABS: HCV Quant. RNA PCR HCV Not Detected IU/mL (.)
[2019-11-23 00:46] LABS: HSV 1 IgG < 0.91 index (0.00-0.90); HSV 2 IgG < 0.91 index (0.00-0.90)
== END ==
PROVIDERS: Referring Provider Nurse Practitioner Women's Health; Visit Provider Nurse Practitioner Women's Health
DX: Z12.4 Encounter for screening for malignant neoplasm of cervix (principal); Z11.3 Encounter for screening for infections with a predominantly sexual mode of transmission
CPT/HCPCS: 36415; 86592; 86695; 86696; 86703; 87491; 87522; 87591; 87624; 88175; G0145

== ENCOUNTER 2020-01-18 16:32 | Emergency (ER) | payer BC, SELFPAY ==
[2019-11-20 11:35] VITALS: BMI 25.9
[2020-01-18 16:32] VITALS: BP 128/82; PULSE 76; RESP 16; TEMP 36.9; O2SAT 97; BMI 26.9
--- NOTE | 2020-01-18 16:43 | ED.DCSUM_ITS ---
- ER Visit Summary Date of Service: 01/18/20 Chief Complaint: [Headache] History of Present Illness: The patient is a 39 F [presents to the emergency department with complaint of headache that started this morning and gradually built up. Patient's had similar headaches in the past but not for the last 2 ye ars. Patient does have history of migraines. She complains of photophobia is as well as smells bothering her. She complains of nausea but no vomiting. She denies any falls or head injuries. She denies recent illness. No family history of brain tumors or aneurysms.] Physical Examination: [HEENT-PERRLA, EOMI. Cranial nerves II through XII grossly intact. TMs clear. Mucous membranes moist. No adenopathy. Cardiovascular-regular rate and rhythm without murmur or ectopy Lungs-clear to auscultation, chest wall stable without crepitus or subcu emphysema Abdomen-normoactive bowel sounds, soft, nontender, no rebound or rigidity, no peritoneal signs. Neuro rafo-jovimt-omtx and heel driscoll testing within normal limits, negative Romberg, negative for drift, fundi benign Extremities-intact ?4, normal range of motion, normal pulses, atraumatic Test Results: None indicated] Emergency Department Course and Treatment: [IV line was established and patient was given a liter normal same fluid bolus as well as Reglan, Benadryl, and Toradol. Patient's headache improved from a 9 out of 10 to a 4 out of 10. She does not want anything further for pain at this point.] Treatment Plan: [Patient advised to push fluids and get lots of rest. She is advised to follow-up with her primary care physician 3 to 5 days. Vice return if worsening headache, difficulty with balance or speech, or condition should worsen anyway.] Disposition: [Discharged home in stable condition] Impression: [Migrainous cephalgia] This note was generated with [employer] dictation software. It may contain incorrect words, spelling, and punctuation that were not noted in review of the chart prior to signing ED Disposition - Plan for ED Patient: Referrals: Care Physician,No Primary [Primary Care Provider] -
[2020-01-18] MEDS: DiphenhydrAMINE 50 MG/ML Syringe 25 MG IV (16:55)
[2020-01-18] MEDS: 0.9% Normal Saline 1,000 ML 1000 ML IV (16:55)
[2020-01-18] MEDS: Ketorolac 30 MG/ML Syringe IV (16:57)
[2020-01-18] MEDS: Metoclopramide 10 MG/2 ML Vial IV (16:59)
--- NOTE | 2020-01-18 17:36 | ED.DEP ---
ED Disposition - Plan for ED Patient: Instructions: ED, Migraine (Classical) Referrals: Care Physician,No Primary [Primary Care Provider] - Marcos Brown MD [STAFF PHYSICIAN] - 3-5 Days
[2020-01-18 17:53] VITALS: BP 120/70; PULSE 71; RESP 18; O2SAT 97
== END 2020-01-18 17:54 | disposition home or self-care (01) ==
LOC: ED 16:44
PROVIDERS: Emergency Provider Emergency Medicine
DX: G43.909 Migraine, unspecified, not intractable, without status migrainosus (principal)
CPT/HCPCS: 96374; 96375; 99284; J7030

== ENCOUNTER → 2020-01-21 | Outpatient (CLI) | payer BC, SELFPAY ==
[2020-01-21 07:39] VITALS: BMI 26.9
== END | disposition home or self-care (01) ==
LOC: MTDU 01-23 09:46
PROVIDERS: PCP Student in an Organized Health Care Education/Training Program; Referring Provider Physician Assistant Surgical; Visit Provider Physician Assistant Surgical
DX: Z20.828 Contact with and (suspected) exposure to other viral communicable diseases (principal)
CPT/HCPCS: 87635; 94799; U0003

== ENCOUNTER → 2020-09-26 18:26 | Outpatient (CLI) | payer BC, SELFPAY ==
[2019-02-01 15:53] VITALS: BMI 25.9
[2020-07-13 08:16] VITALS: BMI 26.6
--- NOTE | 2020-09-26 18:29 | US_ITS ---
STUDY: ULTRASOUND OF THE FEMALE PELVIS - COMPLETE REASON FOR EXAM: Female, 39 years old. Pain, IUD PLACEMENT LMP: Unknown. TECHNIQUE: Transabdominal and Transvaginal TECHNICAL QUALITY: Adequate. COMPARISON: None. FINDINGS: The uterus is retroverted and is in a midline position. The uterus measures 8.5 x 7 x 5.5 cm. Normal uterine cervix. The endometrium measures 3 mm in thickness, and is hyperechoic. There is no demonstrated endometrial mass. There is no demonstrated myometrial mass. I.U.D. - The patient does have an I.U.D. IUD noted in satisfactory position The right ovary is visualized. The right ovary measures 2.7 x 2.3 x 2.2 cm. There is no right ovarian cyst or ovarian mass. There is no visualized right adnexal mass or complex lesion. There is normal arterial and normal venous vascularity. The left ovary is visualized. The left ovary measures 3.9 x 2.6 x 2.3 cm. There is no left ovarian cyst or ovarian mass. There is no visualized left adnexal mass or complex lesion. There is normal arterial and normal venous vascularity. There is minimal fluid in the cul-de-sac, likely physiologic. The bladder is incompletely distended US/Transvaginal Non- IMPRESSION: No suspicious sonographic findings, IUD noted in satisfactory position Electronically Signed: Jg Franz MD at 8:55 EDT , Service support ,
--- NOTE | 2020-09-26 18:29 | US_ITS ---
STUDY: ULTRASOUND OF THE FEMALE PELVIS - COMPLETE REASON FOR EXAM: Female, 39 years old. Pain, IUD PLACEMENT LMP: Unknown. TECHNIQUE: Transabdominal and Transvaginal TECHNICAL QUALITY: Adequate. COMPARISON: None. FINDINGS: The uterus is retroverted and is in a midline position. The uterus measures 8.5 x 7 x 5.5 cm. Normal uterine cervix. The endometrium measures 3 mm in thickness, and is hyperechoic. There is no demonstrated endometrial mass. There is no demonstrated myometrial mass. I.U.D. - The patient does have an I.U.D. IUD noted in satisfactory position The right ovary is visualized. The right ovary measures 2.7 x 2.3 x 2.2 cm. There is no right ovarian cyst or ovarian mass. There is no visualized right adnexal mass or complex lesion. There is normal arterial and normal venous vascularity. The left ovary is visualized. The left ovary measures 3.9 x 2.6 x 2.3 cm. There is no left ovarian cyst or ovarian mass. There is no visualized left adnexal mass or complex lesion. There is normal arterial and normal venous vascularity. There is minimal fluid in the cul-de-sac, likely physiologic. The bladder is incompletely distended US/Pelvic (Non ) IMPRESSION: No suspicious sonographic findings, IUD noted in satisfactory position Electronically Signed: Jg Franz MD at 8:55 EDT , Service support ,
== END ==
PROVIDERS: PCP Student in an Organized Health Care Education/Training Program; Visit Provider Obstetrics & Gynecology
DX: R52 Pain, unspecified (principal); Z30.431 Encounter for routine checking of intrauterine contraceptive device
CPT/HCPCS: 76830; 76856

== ENCOUNTER → 2020-10-10 | Outpatient (CLI) | payer BC, SELFPAY ==
[2020-10-10 13:05] VITALS: BMI 26.2
== END | disposition home or self-care (01) ==
LOC: LABSPEC 16:23
PROVIDERS: PCP Student in an Organized Health Care Education/Training Program; Referring Provider Obstetrics & Gynecology; Visit Provider Obstetrics & Gynecology
DX: N89.8 Other specified noninflammatory disorders of vagina (principal)
CPT/HCPCS: 87070; 87205

== ENCOUNTER → 2020-11-27 17:01 | Outpatient (CLI) | payer BC, SELFPAY ==
[2020-11-27 15:34] VITALS: BMI 26.2
[2020-12-01 04:06] LABS: Chlamydia By Nucleic Acid AMP Negative (Negative)
[2020-12-01 08:00] LABS: Gonococcus By Nucleic Acid AMP Negative (Negative)
== END ==
PROVIDERS: PCP Student in an Organized Health Care Education/Training Program; Referring Provider Obstetrics & Gynecology; Visit Provider Obstetrics & Gynecology
DX: N89.8 Other specified noninflammatory disorders of vagina (principal); Z11.3 Encounter for screening for infections with a predominantly sexual mode of transmission
CPT/HCPCS: 87070; 87205; 87491; 87591

== ENCOUNTER → 2021-03-19 | Outpatient (CLI) | payer BC, SELFPAY ==
[2021-03-21 09:08] LABS: Chlamydia By Nucleic Acid AMP Negative (Negative)
[2021-03-21 13:49] LABS: Gonococcus By Nucleic Acid AMP Negative (Negative)
== END | disposition home or self-care (01) ==
LOC: LABSPEC 11:57
PROVIDERS: PCP Student in an Organized Health Care Education/Training Program; Referring Provider Nurse Practitioner Women's Health; Visit Provider Nurse Practitioner Women's Health
DX: N76.0 Acute vaginitis (principal); Z11.3 Encounter for screening for infections with a predominantly sexual mode of transmission
CPT/HCPCS: 87070; 87186; 87205; 87491; 87591

== ENCOUNTER 2021-06-04 10:33 | Outpatient (CLI) | payer BC, SELFPAY | END 2021-06-04 23:59 | disposition short-term general hospital (02) | LOC: LABSPEC 10:35 | PROVIDERS: PCP Student in an Organized Health Care Education/Training Program; Referring Provider Physician Assistant; Visit Provider Physician Assistant | DX: U07.1 COVID-19 (principal) | CPT/HCPCS: 87635; U0003; U0005 ==

== ENCOUNTER 2021-06-18 15:58 | Outpatient (CLI) | payer BC, SELFPAY ==
[2021-06-22 21:07] LABS: Chlamydia By Nucleic Acid AMP Negative (Negative)
[2021-06-22 21:11] LABS: Gonococcus By Nucleic Acid AMP Negative (Negative)
== END 2021-06-18 23:59 | disposition short-term general hospital (02) ==
PROVIDERS: PCP Student in an Organized Health Care Education/Training Program; Visit Provider Obstetrics & Gynecology
DX: Z11.3 Encounter for screening for infections with a predominantly sexual mode of transmission (principal)
CPT/HCPCS: 87070; 87205; 87491; 87591

== ENCOUNTER 2021-06-22 16:22 | Outpatient (CLI) | payer BC, SELFPAY | END 2021-06-22 23:59 | disposition short-term general hospital (02) | LOC: LABSPEC 16:22 | PROVIDERS: PCP Student in an Organized Health Care Education/Training Program; Referring Provider Nurse Practitioner Women's Health; Visit Provider Nurse Practitioner Women's Health | DX: Z11.3 Encounter for screening for infections with a predominantly sexual mode of transmission (principal) | CPT/HCPCS: 87255 ==

== ENCOUNTER 2021-06-30 07:27 | Emergency (ER) | payer BC, SELFPAY ==
[2021-06-30 07:28] VITALS: BP 112/75; PULSE 120; RESP 18; TEMP 37.7; O2SAT 99; BMI 27.3
[2021-06-30 07:48] VITALS: BP 112/75; PULSE 120; RESP 18; TEMP 37.7; O2SAT 99
--- NOTE | 2021-06-30 07:52 | US_ITS ---
STUDY: ULTRASOUND OF THE FEMALE PELVIS - COMPLETE REASON FOR EXAM: Female, 40 years old. RLQ pain/fever, hx of PCOS, h/o appendectomy LMP: Unknown. TECHNIQUE: Transvaginal TECHNICAL QUALITY: Adequate. COMPARISON: Comparison is made with prior study dated 09/26/2020. FINDINGS: The uterus is anteverted and is in a midline position. The uterus measures 9.1 cm x 6.5 cm x 5.7 cm. There is a Nabothian cyst of the cervix. A small amount of fluid is seen in the cervical canal. The endometrium measures 1.8 mm in thickness, and is hyperechoic. There is no demonstrated endometrial mass. There is no demonstrated myometrial mass. I.U.D. - The patient does have an I.U.D. The right ovary is visualized. The right ovary measures 3.1 cm x 3.3 cm x 3 cm. There is a 1.4 cm dominant follicle in the right ovary. There is no visualized right adnexal mass or complex lesion. There is normal arterial and normal venous vascularity. The left ovary is visualized. The left ovary measures 2.6 cm x 2.5 cm x 2.8 cm. There is no left ovarian cyst or ovarian mass. There is no visualized left adnexal mass or complex lesion. There is normal arterial and normal venous vascularity. There is minimal fluid in the cul-de-sac. US/Transvaginal Non- IMPRESSION: Small amount of fluid is seen in the cervical canal. Dominant follicle in the right ovary measuring 1.4 cm IUD is seen within the uterus. Electronically Signed: Zeyad Metcalf MD at 9:42 EST ,
--- NOTE | 2021-06-30 08:01 | EX.ED.DYSGE1 ---
HPI History of Present Illness Chief Complaint: Abd Pain Informant: patient Narrative Narrative: Patient is a 40-year-old female presenting with fever and right lower quadrant abdominal pain. She knows she has a history of PCOS and yesterday started having pain in her right lower quadrant that felt like a cyst rupturing. She notes this morning when she woke up she continued to have significant pain in her right lower quadrant but also had a fever of 101.7 and felt dizzy. She took 600 mg of ibuprofen and after taking her children to school came to the emergency room for further evaluation. She notes she now feels like she is sweating and hot. She states the pain is in her right lower quadrant and radiates to her back and up into her shoulder blade. It is worse when she lays down or straightens out her leg. It is stabbing in nature. She denies any urinary symptoms or abnormal vaginal discharge/bleeding. She does have an IUD. She denies any new sexual partners or concerns for STIs. She notes she did recently have screening for STIs that were negative. She has had an appendectomy in the past as well as 4 C-sections. Patient reports that she had Covid over [place]. She states none of her children are sick at home. No other complaints at this time. Chart review shows that patient was diagnosed with vaginitis on 06/18/2021 and had negative GC chlamydia at that time. She had a sore on her labia on 06/22 which ultimately had a negative HSV swab. [facility] Home Medications levonorgestrel 20.1 mcg/24 hrs (6 yrs) 52 mg intrauterine device 1 device INTRAUTERINE ONCE 02/01/19 [History Last Taken Unknown] omeprazole 20 mg tablet,delayed release 20 mg PO DAILY 10/10/20 [History Last Taken Unknown] spironolactone 50 mg tablet 50 mg PO DAILY #60 tab 03/19/21 [Rx Last Taken Unknown] nystatin-triamcinolone 100,000 unit/gram-0.1 % topical ointment 1 applic TOPICAL TID #15 g 06/18/21 [Rx Last Taken Unknown] fluconazole 150 mg tablet 150 mg PO .COMPLEX #2 tab 06/22/21 [Rx Last Taken Unknown] valacyclovir 1 gram tablet 1,000 mg PO BID 10 Days #20 tab 06/22/21 [Rx Last Taken Unknown] Allergy/AdvReac Type Severity Reaction Status Date / Time miconazole [From Monistat 7] Allergy Intermediate Other Verified 06/30/21 07:30 povidone-iodine Allergy Mild Rash Verified 06/30/21 07:30 hydrocodone AdvReac Mild Nausea/Vom/ Verified 06/30/21 07:30 Diarrhea azithromycin AdvReac Upset Verified 06/30/21 07:30 [From Zithromax Z-Nadeem] Stomach Family History Mother Cancer Lung Aunt Breast cancer Surgical History delivery delivered Edilberto's duct cyst H/O knee surgery History of ankle surgery History of appendectomy Social History Smoking Status: Never smoker alcohol intake: never substance use type: does not use caffeine: Yes what type of physical activity do you participate in: none seatbelt use: always do you feel safe at home: Yes 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 ROS ROS ED Constitutional Constitutional ED: Reports chills, fever(s) and sweats Eyes Eyes: Denies change in vision ENT ENT ED: Denies rhinorrhea or sore throat Cardiovascular Cardiovascular: Denies chest pain Respiratory/Chest Respiratory/Chest: Denies cough or dyspnea Gastrointestinal Gastrointestinal: Reports abdominal pain; Denies constipation, diarrhea, nausea or vomiting Genitourinary Genitourinary ED: Denies dysuria, hematuria or urinary frequency Musculoskeletal Musculoskeletal: Denies arthralgias or myalgias Integumentary Denies rash Neurologic Neurologic: Denies headache(s), paresthesias or weakness Psychiatric Psychiatric: Denies depression EXAM Physical Exam Const Vital Signs: 06/30/21 07:28 06/30/21 07:48 06/30/21 10:33 Temperature 99.8 F H 99.8 F H Temperature Source Oral Oral Pulse Rate 120 H 120 H 71 Respiratory Rate 18 18 16 Blood Pressure 112/75 112/75 137/62 H Blood Pressure Mean 87 87 Pulse Ox 99 99 98 Oxygen Delivery Method Room Air Room Air Positive well nourished and well developed General Appearance ED: well developed Eyes PERRL and EOMs intact bilaterally Neck supple and no JVD Chest Wall inspection of chest normal Resp normal respiratory effort and clear to auscultation bilaterally Cardio regular rate, regular rhythm and no murmurs GI non-distended Auscultation: normoactive bowel sounds Palpation: soft and tender RLQ; Negative for guarding or rebound tenderness present Back/Spine no CVA tenderness General Back: Negative for CVA tenderness Extremity normal to inspection General Extremety ED: Negative for edema or tenderness General Extremity: Negative for edema Neuro oriented x3 Sensorium / Orientation: alert Psych mental status grossly normal Skin no rashes or lesions noted and no wounds MDM MDM MDM Narrative Medical decision making narrative: Patient evaluated for fever and right lower quadrant abdominal pain. She is status post appendectomy. She does have a history of PCOS and ruptured ovarian cyst that feels similar but she is never had a fever with it. Triage vital signs are significant for tachycardia. She currently does not have a fever. She notes she did take NSAIDs prior to arrival. She notes her pain is improving at this time. Lactate is normal. She is tender in her right lower quadrant. Patient declines pelvic exam stating she just had one last week as well as a full panel STD testing. Ultrasound of the pelvis shows a dominant right follicle as well as trace free fluid. Patient overall is well-appearing. She is given IV fluids and Tylenol in the ER. She declines anything stronger for pain. Patient already had Covid I discussed the case with her TURBINE ENGINEER, Dr. Leonid Miles, who does not have any further recommendations. She will follow up in the office. I did discuss the patient that we could do a CT of her abdomen pelvis to see if there is GI component to her pain/fever. As patient is already had an appendectomy a I am not worried about appendicitis. Patient declined at this time stating that she will come back if her fevers persist or her pains worsens. Patient is counseled on signs and symptoms requiring return to the emergency room. Patient verbalizes agreement and understand this plan. Patient discharged home in stable and improved condition. Lab Data Attestation: I reviewed the patient's lab results. Labs: Laboratory Results - last 24 hr 06/30/21 06/30/21 06/30/21 07:46 07:46 08:05 WBC 10.6 RBC 4.27 Hgb 13.2 Hct 38.1 MCV 89.2 MCH 30.9 MCHC 34.6 RDW Std Deviation 40.6 RDW Coeff of Nathanael 12.5 Plt Count 258 MPV 9.9 Immature Gran % (Auto) 0.200 Neut % (Auto) 82.4 H Lymph % (Auto) 9.9 L [place] % (Auto) 6.7 Eos % (Auto) 0.4 Baso % (Auto) 0.4 Absolute Neuts (auto) 8.8 H Absolute Lymphs (auto) 1.05 Nucleated RBC % 0 Sodium 138 Potassium 3.8 Chloride 107 Carbon Dioxide 26.0 Anion Gap 5 BUN 15 Creatinine 0.80 Estim Creat Clear Calc 92.72 Est GFR (MDRD) Af Amer 103 Est GFR (MDRD) Non-Af 85 BUN/Creatinine Ratio 18.8 Glucose 100 Lactic Acid 0.9 Calcium 9.2 Total Bilirubin 0.70 AST 9 L ALT 16 Alkaline Phosphatase 95 Total Protein 7.3 Albumin 4.0 Globulin 3.3 Albumin/Globulin Ratio 1.2 Urine Color Urine Clarity Urine pH Ur Specific [place] Urine Protein Urine Glucose (UA) Urine Ketones Urine Occult Blood Urine Nitrite Urine Bilirubin Urine Urobilinogen Ur Leukocyte Esterase Urine RBC Urine WBC Ur Squamous Epith Cells Urine Bacteria Urine Mucus Urine Test 06/30/21 08:20 WBC RBC Hgb Hct MCV MCH MCHC RDW Std Deviation RDW Coeff of Nathanael Plt Count MPV Immature Gran % (Auto) Neut % (Auto) Lymph % (Auto) [place] % (Auto) Eos % (Auto) Baso % (Auto) Absolute Neuts (auto) Absolute Lymphs (auto) Nucleated RBC % Sodium Potassium Chloride Carbon Dioxide Anion Gap BUN Creatinine Estim Creat Clear Calc Est GFR (MDRD) Af Amer Est GFR (MDRD) Non-Af BUN/Creatinine Ratio Glucose Lactic Acid Calcium Total Bilirubin AST ALT Alkaline Phosphatase Total Protein Albumin Globulin Albumin/Globulin Ratio Urine Color Yellow Urine Clarity Sl. Cloudy Urine pH 9.0 Ur Specific [place] 1.020 Urine Protein 30 H Urine Glucose (UA) Normal Urine Ketones Negative Urine Occult Blood Negative Urine Nitrite Negative Urine Bilirubin Negative Urine Urobilinogen Normal Ur Leukocyte Esterase 25 H Urine RBC 0-5 SEEN Urine WBC 0-5 SEEN Ur Squamous Epith Cells 5-10 SEEN Urine Bacteria 2+ Urine Mucus 0 SEEN Urine Test Negative Radiography Diagnostic Testing: Clinical Impression(s) from Imaging Studies Transvaginal US 06/30/21 07:52 IMPRESSION: Small amount of fluid is seen in the cervical canal. Dominant follicle in the right ovary measuring 1.4 cm IUD is seen within the uterus. Electronically Signed: Zeyad Metcalf MD at 9:42 EST , Discharge Plan Triage Chief Complaint: Abd Pain ED Provider: Shalini Schmidt Dx/Rx/DC Orders Clinical Impression: Abdominal pain, RLQ, Fever of unknown origin, Ovarian cyst Instructions: ED FUO Adult, ED Ovarian Cyst Prescriptions: No Action Liletta 19.5 mcg/24 hrs (5 yrs) 52 mg intrauterine device 1 device intrauterine ONCE RF: 0 omeprazole 20 mg tablet,delayed release (DR/EC) 20 mg PO DAILY RF: 0 spironolactone 50 mg tablet 50 mg PO DAILY Qty: 60 RF: 4 nystatin-triamcinolone 100,000-0.1 unit/gram-% ointment 1 applic topical TID Qty: 15 RF: 4 valacyclovir 1 gram tablet 1,000 mg PO BID 10 Days Qty: 20 RF: 0 fluconazole [Diflucan] 150 mg tablet 150 mg PO .COMPLEX Qty: 2 RF: 0 Primary Care Provider: Rusty Frye Referrals: Rusty Frye DO [Primary Care Provider] - Reyna Farah MD [STAFF PHYSICIAN] - Disposition Disposition: Home, Self Care Discharge Date/Time: 06/30/21 10:34
[2021-06-30] MEDS: 0.9% Normal Saline 1,000 ML 1000 ML IV (08:05)
[2021-06-30 08:06] LABS: Absolute Lymphocyte Count 1.05 X10^3/uL (0.83-4.51); Absolute Neutrophil Count 8.8 X10^3/uL (2.0-7.7); Basophil# 0.04 X10^3/uL; Basophil% 0.4 % (0-1); Eosinophil# 0.04 X10^3/uL; Eosinophils% 0.4 % (0-5); Hematocrit 38.1 % (37-47); Hemoglobin 13.2 g/dL (12.0-15.0); Lymphocyte # 1.05 X10^3/ul (0.83-4.51); Lymphocyte % 9.9 % (19-41); Mean Corp Hgb Conc 34.6 g/dL (32-36); Mean Corpuscular Hgb 30.9 pg (27.0-32.0); Mean Corpuscular Volume 89.2 fL (81-99); Mean Platelet Vol. 9.9 fl (6.2-12.0); Monocyte# 0.71 X10^3/uL; Monocyte% 6.7 % (0-10); NRBC Flagged by Analyzer 0 % (0-5); Neutrophil # 8.78 X10^3/uL (2.7-7.7); Neutrophil % 82.4 % (47-70); Platelet Count 258 K/mm3 (150-450); RBC Distribution Width CV 12.5 % (11.6-14.6); RBC Distribution Width SD 40.6 fl (35.1-43.9); Red Blood Count 4.27 M/mm3 (4.2-5.4); White Blood Count 10.6 K/mm3 (4.4-11.0)
[2021-06-30] MEDS: Acetaminophen 500 MG Tablet 1000 MG PO (08:06)
[2021-06-30 08:21] LABS: ALB/GLOB Ratio 1.2 RATIO (0.9-2.4); AST(SGOT) 9 U/L (15-37); Alanine Aminotransfer ALT/SGPT 16 U/L (13-56); Alkaline Phosphatase 95 U/L (45-117); Anion Gap 5 (5-15); BUN 15 mg/dL (7-18); BUN/Creat Ratio 18.8 RATIO (10-20); Calcium,Total 9.2 mg/dL (8.5-10.1); Chloride 107 mmol/L (98-107); EST Glomerular Filtration Rate 85 mL/min (>60); Est Glom Filt Rate - Afr Amer 103 mL/min (>60); Estimated Creatinine Clearance 92.72 ml/min; Globulin 3.3 g/dL (2.2-4.2); Glucose 100 mg/dL (74-106); Potassium 3.8 mmol/L (3.5-5.1); Protein, Total 7.3 g/dL (6.4-8.2); Sodium Level 138 mmol/L (136-145)
[2021-06-30 08:31] LABS: Mucous, Urine 0 SEEN /hpf (<or=2+)
[2021-06-30 08:35] LABS: Color, Urine Yellow (Yellow); Glucose, Dipstick Normal (Normal); Ketone-Dipstick Negative (Negative); Leukocyte Esterase-Dipstick 25 /ul (Negative); Nitrite-Dipstick Negative (Negative); Occult Blood-Urine Negative /ul (Negative); Protein-Dipstick 30 mg/dl (Negative); Urine Bilirubin Dipstick Negative (Negative); Urine Clarity Sl. Cloudy (Clear); Urine Urobilinogen Normal (Normal)
[2021-06-30 08:38] LABS: Internal QC Validated? YES +Cl - CLEAR BKGD; Pregnancy, Urine Negative Negative
[2021-06-30 08:39] LABS: Lactic Acid 0.9 mmol/L (0.4-1.9)
[2021-06-30 08:56] LABS: Bacteria 2+ /hpf (None Seen); Red Blood Cells-Urine 0-5 SEEN /hpf (0-5); Squamous Epithelial Cells - UA 5-10 SEEN /hpf (5-10); White Blood Cells 0-5 SEEN /hpf (0-5)
[2021-06-30 10:33] VITALS: BP 137/62; PULSE 71; RESP 16; O2SAT 98
== END 2021-06-30 10:34 | disposition home or self-care (01) ==
PROVIDERS: Emergency Provider Emergency Medicine; PCP Student in an Organized Health Care Education/Training Program; Visit Provider Emergency Medicine
DX: N83.201 Unspecified ovarian cyst, right side (principal); R10.31 Right lower quadrant pain; R50.9 Fever, unspecified; Z97.5 Presence of (intrauterine) contraceptive device; Z90.89 Acquired absence of other organs; Z86.16 Personal history of COVID-19
CPT/HCPCS: 76830; 80053; 81001; 81025; 83605; 85025; 87804; 96360; 96361; 99285; J7030; A4216

== ENCOUNTER → 2022-02-01 | Outpatient (CLI) | payer BC, SELFPAY ==
[2022-02-01 16:28] LABS: Chlamydia Trachomatis by PCR Negative (Negative); Neisserai gonorrhoeae by PCR Negative (Negative); Probe Check PASS; Sample Adequacy Control PASS; Specimen Processing Control PASS
== END | disposition home or self-care (01) ==
PROVIDERS: PCP Student in an Organized Health Care Education/Training Program; Visit Provider Nurse Practitioner Family
DX: R30.9 Painful micturition, unspecified (principal)
CPT/HCPCS: 87086; 87088; 87491; 87591

== ENCOUNTER → 2022-02-03 | Outpatient (CLI) | payer BC, SELFPAY ==
[2022-02-03 14:09] LABS: HIV - WCH Non-Reactive (Nonreactive); Syphilis Antibodies Non-reactive
[2022-02-04 18:07] LABS: HCV Quant. RNA PCR HCV Not Detected IU/mL (.)
[2022-02-07 15:57] LABS: HSV 1 IgG < 0.91 index (0.00-0.90); HSV 2 IgG < 0.91 index (0.00-0.90)
== END | disposition home or self-care (01) ==
LOC: LAB 11:59
PROVIDERS: PCP Student in an Organized Health Care Education/Training Program; Referring Provider Nurse Practitioner Women's Health; Visit Provider Nurse Practitioner Women's Health
DX: Z20.2 Contact with and (suspected) exposure to infections with a predominantly sexual mode of transmission (principal); Z11.3 Encounter for screening for infections with a predominantly sexual mode of transmission
CPT/HCPCS: 36415; 86695; 86696; 86703; 86780; 87522

== ENCOUNTER → 2022-03-01 | Outpatient (CLI) | payer BC, SELFPAY ==
--- NOTE | 2022-03-01 07:58 | US_ITS ---
STUDY: ULTRASOUND OF THE FEMALE PELVIS - COMPLETE REASON FOR EXAM: Female, 41 years old. IUD placement LMP: 2 years ago. TECHNIQUE: Transabdominal and Transvaginal TECHNICAL QUALITY: Adequate. COMPARISON: Comparison is made with prior examination dated 06/30/2021. FINDINGS: The uterus is retroverted and is tilted to the left side of the pelvis. The uterus measures 8.6 cm x 7.8 cm x 5.9 cm. Normal uterine cervix. The endometrium measures 3.0 mm in thickness, and is . There is no demonstrated endometrial mass. Heterogeneous appearance of the myometrium suggestive of fibrotic change although no discrete fibroid is seen. I.U.D. - The patient does have an I.U.D. The right ovary is visualized. The right ovary measures 3.1 cm x 2.6 cm x 2.2 cm. Follicles are seen within the right ovary. There is no visualized right adnexal mass or complex lesion. There is normal arterial and normal venous vascularity. The left ovary is visualized. The left ovary measures 2.2 cm x 2.2 cm x 2 cm. There is no left ovarian cyst or ovarian mass. There is no visualized left adnexal mass or complex lesion. There is normal arterial and normal venous vascularity. There is no fluid in the cul-de-sac. The pre void volume of the bladder was 62 ml. US/Transvaginal Non- IMPRESSION: Heterogeneous appearance of the myometrium suggestive of fibroid change although no focal fibroid is seen. Electronically Signed: Zeyad Metcalf MD at 14:09 EDT ,
--- NOTE | 2022-03-01 07:58 | US_ITS ---
STUDY: ULTRASOUND OF THE FEMALE PELVIS - COMPLETE REASON FOR EXAM: Female, 41 years old. IUD placement LMP: 2 years ago. TECHNIQUE: Transabdominal and Transvaginal TECHNICAL QUALITY: Adequate. COMPARISON: Comparison is made with prior examination dated 06/30/2021. FINDINGS: The uterus is retroverted and is tilted to the left side of the pelvis. The uterus measures 8.6 cm x 7.8 cm x 5.9 cm. Normal uterine cervix. The endometrium measures 3.0 mm in thickness, and is . There is no demonstrated endometrial mass. Heterogeneous appearance of the myometrium suggestive of fibrotic change although no discrete fibroid is seen. I.U.D. - The patient does have an I.U.D. The right ovary is visualized. The right ovary measures 3.1 cm x 2.6 cm x 2.2 cm. Follicles are seen within the right ovary. There is no visualized right adnexal mass or complex lesion. There is normal arterial and normal venous vascularity. The left ovary is visualized. The left ovary measures 2.2 cm x 2.2 cm x 2 cm. There is no left ovarian cyst or ovarian mass. There is no visualized left adnexal mass or complex lesion. There is normal arterial and normal venous vascularity. There is no fluid in the cul-de-sac. The pre void volume of the bladder was 62 ml. US/Pelvic (Non ) IMPRESSION: Heterogeneous appearance of the myometrium suggestive of fibroid change although no focal fibroid is seen. Electronically Signed: Zeyad Metcalf MD at 14:09 EDT ,
== END | disposition home or self-care (01) ==
PROVIDERS: PCP Student in an Organized Health Care Education/Training Program; Referring Provider Obstetrics & Gynecology; Visit Provider Obstetrics & Gynecology
DX: N83.01 Follicular cyst of right ovary (principal); R10.2 Pelvic and perineal pain; Z97.5 Presence of (intrauterine) contraceptive device
CPT/HCPCS: 76830; 76856; 93976

== ENCOUNTER → 2022-06-02 | Outpatient (CLI) | payer BC, SELFPAY ==
--- NOTE | 2022-06-02 12:44 | BI_ITS ---
MAMMOGRAPHY - BILATERAL SCREENING REASON FOR EXAM: Female, 41 years old. Routine annual screening examination. PERTINENT HISTORY: Aunt with breast cancer. TECHNIQUE: Digital bilateral breast krystin (3D mammographic acquisition) in the CC and MLO projections. 2-D mediolateral oblique (MLO) and craniocaudad (CC) views of both breasts were obtained. CAD: Full Field Digital Mammography with Computer Added Detection was performed. COMPARISON: None. Baseline examination. FINDINGS: Breast Composition: The breasts are heterogeneously dense, which may obscure small masses. There are no dominant masses or suspicious calcifications. No other significant abnormalities are identified. BI/SCRN MAMM (CAD)W/KRYSTIN BILAT IMPRESSION: Negative screening mammogram. Yearly followup mammogram recommended. (A) ASSESSMENT CATEGORY: BIRADS Category 1: Negative. A letter regarding these results will be sent to the patient by the facility within 30 days. Approximately 10% of breast cancers are not detected by mammography. A normal mammogram should not delay biopsy of a clinically suspicious abnormality. [id number] Electronically Signed: Zeayd Metcalf MD at 14:15 EST ,
== END | disposition home or self-care (01) ==
LOC: OPBI 12:43
PROVIDERS: PCP Student in an Organized Health Care Education/Training Program; Referring Provider Obstetrics & Gynecology; Visit Provider Obstetrics & Gynecology
DX: Z12.31 Encounter for screening mammogram for malignant neoplasm of breast (principal)
CPT/HCPCS: 77063; 77067

== ENCOUNTER 2022-08-04 11:23 | Emergency (ER) | payer BC, SELFPAY ==
[2022-08-04 11:24] VITALS: BP 115/59; PULSE 105; RESP 18; TEMP 36.7; O2SAT 100; BMI 27.6
[2022-08-04 12:30] VITALS: BP 115/71; PULSE 93; RESP 16; TEMP 37.3; O2SAT 99
[2022-08-04] MEDS: 0.9% Normal Saline 1,000 ML 250 ML IV (12:34)
[2022-08-04] MEDS: Ceftriaxone 1 GM/50 ML BAG IV (12:35)
[2022-08-04 12:45] LABS: Mucous, Urine 0 SEEN /hpf (<or=2+); Red Blood Cells-Urine 0 SEEN /hpf (0-5); White Blood Cells 0 SEEN /hpf (0-5)
[2022-08-04 12:46] LABS: Color, Urine Yellow (Yellow); Glucose, Dipstick Normal (Normal); Ketone-Dipstick Negative (Negative); Leukocyte Esterase-Dipstick Negative /ul (Negative); Nitrite-Dipstick Negative (Negative); Occult Blood-Urine Negative /ul (Negative); Protein-Dipstick 15 mg/dl (Negative); Urine Bilirubin Dipstick Negative (Negative); Urine Clarity Sl. Cloudy (Clear); Urine Urobilinogen 1 mg/dl (Normal)
[2022-08-04 12:48] LABS: Absolute Lymphocyte Count 0.85 X10^3/uL (0.83-4.51); Absolute Neutrophil Count 7.5 X10^3/uL (2.0-7.7); Basophil# 0.03 X10^3/uL; Basophil% 0.3 % (0-1); Eosinophil# 0.04 X10^3/uL; Eosinophils% 0.4 % (0-5); Hematocrit 40.9 % (37-47); Hemoglobin 13.6 g/dL (12.0-15.0); Lymphocyte # 0.85 X10^3/ul (0.83-4.51); Lymphocyte % 9.3 % (19-41); Mean Corp Hgb Conc 33.3 g/dL (32-36); Mean Corpuscular Hgb 30.4 pg (27.0-32.0); Mean Corpuscular Volume 91.5 fL (81-99); Mean Platelet Vol. 9.6 fl (6.2-12.0); Monocyte# 0.68 X10^3/uL; Monocyte% 7.5 % (0-10); NRBC Flagged by Analyzer 0 % (0-5); Neutrophil % 82.3 % (47-70); Platelet Count 264 K/mm3 (150-450); RBC Distribution Width CV 11.9 % (11.6-14.6); RBC Distribution Width SD 39.9 fl (35.1-43.9); Red Blood Count 4.47 M/mm3 (4.2-5.4); White Blood Count 9.1 K/mm3 (4.4-11.0)
[2022-08-04 12:52] LABS: Bacteria 1+ /hpf (None Seen); Squamous Epithelial Cells - UA 0-5 SEEN /hpf (5-10)
--- NOTE | 2022-08-04 12:59 | EX.ED.DYSGE1 ---
HPI History of Present Illness Chief Complaint: Flank Pain Detail of Chief Complaint: Flank pain with infectious urinary tract symptoms Informant: patient Onset/Context/Timing Onset: Days Context: Sudden Onset Timing: Continuous Quality: Left flank pain, suprapubic discomfort and dysuria with frequency Location: Current Severity: Mild Maximum Severity: Moderate Worsened by: Movement Relieved by: Nothing Associated Symptoms Associated Symptoms: Nausea without vomiting and document temperature of 101.3 ?F Narrative Narrative: Patient is a 41-year-old woman who was [facility]. Urine was positive for protein, blood, leukoesterase and nitrites. Microscopic was not performed. There was not enough urine available for culture. Patient was placed on Macrobid. Patient presents because of fever documented 101.3 with left flank pain. She still has frequency and dysuria. She does endorse nausea without vomiting. She has had 4 C-sections. She has had arthroscopic surgery of multiple joints. She denies headache, visual, ocular auditory symptoms. She denies cardiac or respiratory symptoms. Prior similar symptoms: Yes Recent Illness/Hospitalization: Yes [facility] Medical History Acute sinusitis, unspecified Contact with and (suspected) exposure to other viral communicable diseases Home Medications levonorgestrel 20.4 mcg/24 hrs (8 yrs) 52 mg intrauterine device (Liletta) 1 device intrauterine ONCE 02/01/19 [History Last Taken Unknown] omeprazole 20 mg tablet,delayed release 20 mg PO DAILY 10/10/20 [History Last Taken Unknown] nitrofurantoin monohydrate/macrocrystals 100 mg capsule (Macrobid) 100 mg PO Q12H 7 days #14 caps 08/03/22 [Rx Last Taken Unknown] sulfamethoxazole 800 mg-trimethoprim 160 mg tablet 1 tab PO BID #20 TABLETS 08/04/22 [Rx Last Taken Unknown] Allergy/AdvReac Type Severity Reaction Status Date / Time miconazole [From Monistat 7] Allergy Intermediate Other Verified 08/04/22 11:27 povidone-iodine Allergy Mild Rash Verified 08/04/22 11:27 hydrocodone AdvReac Mild Nausea/Vom/ Verified 08/04/22 11:27 Diarrhea azithromycin AdvReac Upset Verified 08/04/22 11:27 [From Zithromax Z-Nadeem] Stomach Family History Mother Cancer Lung Aunt Breast cancer Surgical History delivery delivered Edilberto's duct cyst H/O knee surgery History of ankle surgery History of appendectomy Social History (Updated 08/04/22 @ 13:[address] Jesus Garcia MD) household members: spouse and children Smoking Status: Former smoker alcohol intake: never substance use type: does not use caffeine: Yes what type of physical activity do you participate in: none seatbelt use: always do you feel safe at home: Yes additional social history: seperated- ROS ROS ED Constitutional Constitutional ED: Reports chills and fever(s); Denies subjective, sweats or weight loss Eyes Eyes: Denies blurry vision or change in vision ENT ENT ED: Denies rhinorrhea or sore throat Cardiovascular Cardiovascular: Denies chest pain, palpitations or racing heartbeat Respiratory/Chest Respiratory/Chest: Denies cough, dyspnea or dyspnea on exertion Gastrointestinal Gastrointestinal: Reports abdominal pain and nausea; Denies constipation, diarrhea, melena or vomiting Genitourinary Genitourinary ED: Reports dysuria, LMP (females 10-50) Details: Comment: (Patient has an IUD and has not had had a menses in some time) and urinary frequency; Denies hematuria Musculoskeletal Musculoskeletal: Reports back pain; Denies arthralgias, myalgias or neck pain Neurologic Neurologic: Denies headache(s) or paresthesias Psychiatric Psychiatric: Denies anxiety or depression Hematologic/Lymphatic Hematologic/Lymphatic: Reports systems reviewed and no addt'l complaints, except as documented EXAM Physical Exam Const Vital Signs: 08/04/22 11:24 08/04/22 12:30 08/04/22 14:05 Temperature 98.1 F 99.1 F Temperature Source Temporal Oral Pulse Rate 105 H 93 88 Respiratory Rate 18 16 16 Blood Pressure 115/59 L 115/71 107/54 L Blood Pressure Mean 77 85 71 Pulse Ox 100 99 96 Oxygen Delivery Method Room Air Room Air Room Air Positive well nourished and well developed Constitutional Narrative: Patient does not look well. She appears uncomfortable. General Appearance ED: well developed; Negative for cyanotic, diaphoretic, NAD or pallor HEENT Reports moist mucous membranes HEENT Narrative: Head is atraumatic normocephalic. Ears normal. Nares patent. Eyes PERRL and EOMs intact bilaterally General Eye ED: Negative for pale conjunctiva or scleral icterus Neck no lymphadenopathy, supple and no JVD Resp normal respiratory effort and clear to auscultation bilaterally Cardio regular rate, regular rhythm, S1 normal heart sound, S2 normal heart sound and no murmurs GI normal to inspection, nondistended, normoactive bowel sounds, non-distended and no masses; Negative for hepatosplenomegaly Palpation: soft and tender suprapubic Back/Spine General Back: CVA tenderness left Thoracic Spine / Upper Back: Negative for thoracic spinal tenderness Lumbar Spine / Lower Back: Negative for lumbar spinal tenderness Extremity normal to inspection General Extremety ED: Negative for edema or tenderness General Extremity: Negative for edema Neuro oriented x3 and CN's II-XII intact bilaterally Sensorium / Orientation: alert Skin no rashes or lesions noted, no wounds and skin turgor normal General Skin Exam: elasticity normal; Negative for jaundice or pallor MDM MDM MDM Narrative Medical decision making narrative: Records from outside facility were reviewed. Patient's history, physical exam and urinalysis from yesterday consistent with pyelonephritis. She is presently on nitrofurantoin. Nitrofurantoin will not treat pyelonephritis. CBC was obtained assess white count and differential and to evaluate for bandemia. UA was obtained as well as urine culture. Suspect if patient's symptoms improve she will be treated as an outpatient. Lab Data Attestation: I reviewed the patient's lab results. Lab results narrative: CBC is normal. UA is suggestive of a urinary tract infection. The macro is unremarkable today. There is bacteria noted. Labs: Laboratory Results - last 24 hr 08/04/22 08/04/22 08/04/22 12:34 12:34 12:34 WBC 9.1 RBC 4.47 Hgb 13.6 Hct 40.9 MCV 91.5 MCH 30.4 MCHC 33.3 RDW Std Deviation 39.9 RDW Coeff of Nathanael 11.9 Plt Count 264 MPV 9.6 Immature Gran % (Auto) 0.200 Neut % (Auto) 82.3 H Lymph % (Auto) 9.3 L [place] % (Auto) 7.5 Eos % (Auto) 0.4 Baso % (Auto) 0.3 Absolute Neuts (auto) 7.5 Absolute Lymphs (auto) 0.85 Nucleated RBC % 0 Sodium 143 Potassium 3.5 Chloride 107 Carbon Dioxide 29.0 Anion Gap 7 BUN 11 Creatinine 0.78 Estim Creat Clear Calc 94.17 Est GFR (MDRD) Af Amer 105 Est GFR (MDRD) Non-Af 87 BUN/Creatinine Ratio 14.0 Glucose 67 L Calcium 9.4 Urine Color Yellow Urine Clarity Sl. Cloudy Urine pH 7.0 Ur Specific [place] 1.010 Urine Protein 15 H Urine Glucose (UA) Normal Urine Ketones Negative Urine Occult Blood Negative Urine Nitrite Negative Urine Bilirubin Negative Urine Urobilinogen 1 H Ur Leukocyte Esterase Negative Urine RBC 0 SEEN Urine WBC 0 SEEN Ur Squamous Epith Cells 0-5 SEEN Urine Bacteria 1+ Urine Mucus 0 SEEN Treatment and Re-Evaluation :: She was informed of results. Patient informed she has pyelonephritis. Her lab results are unremarkable. Tachycardia improved with fluids. She was discharged with antibiotics. She was instructed to discontinue the Macrobid. Discharge Plan Triage Chief Complaint: Flank Pain ED Provider: Jesus Garcia Dx/Rx/DC Orders Clinical Impression: Acute bacterial pyelonephritis, IUD (intrauterine device) in place, Fever Instructions: ED Pyelonephritis, Female (Adult) Prescriptions: New sulfamethoxazole-trimethoprim [sulfamethoxazole-trimethoprim] 800-160 mg tablet 1 tab PO BID Qty: 20 0RF No Action Liletta 19.5 mcg/24 hrs (5 yrs) 52 mg intrauterine device 1 device intrauterine ONCE omeprazole 20 mg tablet,delayed release (DR/EC) 20 mg PO DAILY nitrofurantoin monohyd/m-cryst [Macrobid] 100 mg capsule 100 mg PO Q12H 7 Days Qty: 14 0RF Rx Instructions: must administer with a meal/food Primary Care Provider: Rusty Frye Referrals: Rusty Frye DO [Primary Care Provider] - 3-5 Days if not improving Activity Restrictions/Additional Instructions: Discontinue taking the Macrobid/nitrofurantoin Disposition Disposition: Home, Self Care
[2022-08-04 13:01] LABS: Anion Gap 7 (5-15); BUN 11 mg/dL (7-18); Calcium,Total 9.4 mg/dL (8.5-10.1); Chloride 107 mmol/L (98-107); Creatinine, Serum 0.78 mg/dL (0.55-1.02); EST Glomerular Filtration Rate 87 mL/min (>60); Est Glom Filt Rate - Afr Amer 105 mL/min (>60); Estimated Creatinine Clearance 94.17 ml/min; Glucose 67 mg/dL (74-106); Potassium 3.5 mmol/L (3.5-5.1); Sodium Level 143 mmol/L (136-145)
[2022-08-04 14:05] VITALS: BP 107/54; PULSE 88; RESP 16; O2SAT 96
== END 2022-08-04 14:53 | disposition home or self-care (01) ==
PROVIDERS: Emergency Provider Emergency Medicine; PCP Student in an Organized Health Care Education/Training Program; Visit Provider Emergency Medicine
DX: N10 Acute pyelonephritis (principal); R50.9 Fever, unspecified; Z87.891 Personal history of nicotine dependence; Z30.431 Encounter for routine checking of intrauterine contraceptive device
CPT/HCPCS: 80048; 81001; 85025; 87086; 87088; 96365; 96366; 99283; J7030

== ENCOUNTER → 2022-12-27 | Outpatient (CLI) | payer BC, SELFPAY | END | disposition home or self-care (01) | PROVIDERS: PCP Student in an Organized Health Care Education/Training Program; Visit Provider Physician Assistant | DX: R30.0 Dysuria (principal) | CPT/HCPCS: 87086 ==

== ENCOUNTER 2023-02-26 14:00 | Emergency (ER) | payer BC, SELFPAY ==
[2023-02-26 14:00] VITALS: BP 138/64; PULSE 93; RESP 16; TEMP 36.3; O2SAT 100; BMI 25.3
--- NOTE | 2023-02-26 14:33 | EX.ED.DYSGE1 ---
HPI <PARVEZ Dorman - Last Filed: 02/26/23 16:35> History of Present Illness Chief Complaint: Bite Narrative Narrative: Patient presenting today with a mosquito bite in between her third and fourth digit that occurred last night that has caused swelling and slight redness to her right hand. She reports that she has a history of this happening with mosquito bites in the past. She tried taking Benadryl at home but did not notice any improvement and was unsure how much she could take in a 24-hour period and did not want to take too much. She denies any pain to her hand, fevers, and chills. PFSH <PARVEZ Dorman - Last Filed: 02/26/23 16:35> [facility] Medical History Acute sinusitis, unspecified Contact with and (suspected) exposure to other viral communicable diseases Home Medications levonorgestrel 20.4 mcg/24 hrs (8 yrs) 52 mg intrauterine device (Liletta) 1 device intrauterine ONCE 02/01/19 [History Last Taken Unknown] omeprazole 20 mg tablet,delayed release 20 mg PO DAILY 10/10/20 [History Last Taken Unknown] sulfamethoxazole 800 mg-trimethoprim 160 mg tablet 1 tab PO BID #20 TABLETS 08/04/22 [Rx Last Taken Unknown] cephalexin 500 mg capsule 500 mg PO BID #20 caps 12/25/22 [Rx Last Taken Unknown] Allergy/AdvReac Type Severity Reaction Status Date / Time miconazole [From Monistat 7] Allergy Intermediate Other Verified 02/26/23 14:00 povidone-iodine Allergy Mild Rash Verified 02/26/23 14:00 hydrocodone AdvReac Mild Nausea/Vom/ Verified 02/26/23 14:00 Diarrhea azithromycin AdvReac Upset Verified 02/26/23 14:00 [From Zithromax Z-Nadeem] Stomach Family History Mother Cancer Lung Aunt Breast cancer Surgical History delivery delivered Edilberto's duct cyst H/O knee surgery History of ankle surgery History of appendectomy Social History household members: spouse and children Smoking Status: Former smoker alcohol intake: never substance use type: does not use caffeine: Yes what type of physical activity do you participate in: none seatbelt use: always do you feel safe at home: Yes additional social history: seperated- ROS <PARVEZ Dorman - Last Filed: 02/26/23 16:35> ROS ED Constitutional Constitutional ED: Denies chills or fever(s) Cardiovascular Cardiovascular: Denies chest pain Respiratory/Chest Respiratory/Chest: Denies cough or dyspnea Musculoskeletal Musculoskeletal: Denies arthralgias or myalgias Integumentary Denies abscess, Abrasions or rash Neurologic Neurologic: Denies paresthesias EXAM <PARVEZ Dorman - Last Filed: 02/26/23 16:35> Physical Exam Const Vital Signs: 02/26/23 14:00 02/26/23 15:52 02/26/23 15:52 Temperature 97.3 F L 98.4 F Temperature Source Temporal Temporal Pulse Rate 93 85 85 Respiratory Rate 16 16 16 Blood Pressure 138/64 H 126/64 H 126/64 H Blood Pressure Mean 88 84 84 Pulse Ox 100 99 99 Oxygen Delivery Method Room Air Room Air Room Air 02/26/23 15:52 Temperature Temperature Source Pulse Rate 85 Respiratory Rate Blood Pressure 126/64 H Blood Pressure Mean Pulse Ox 99 Oxygen Delivery Method Positive well nourished, well developed and no apparent distress General Appearance ED: well developed HEENT Reports normocephalic and head/scalp atraumatic Mouth ED: Yes moist mucous membranes normal Eyes PERRL and EOMs intact bilaterally Neck full ROM and supple Chest Wall inspection of chest normal Resp normal respiratory effort and clear to auscultation bilaterally Cardio regular rate and regular rhythm GI soft to palpation, non-tender, non-distended and no masses Back/Spine normal ROM and normal to inspection Extremity normal to inspection and full ROM Extremity Narrative: Very slight slight erythema and edema to the dorsal aspect of the right hand. Radial pulse 2+ and equal bilaterally, good capillary refill, sensation intact. Visible bite to the dorsum of the right hand consistent with mosquito bite. Neuro oriented x3, CN's II-XII intact bilaterally, moves all extremities, no focal motor deficits and no sensory deficits noted Sensorium / Orientation: awake and alert Psych mental status grossly normal and thought process normal Skin no rashes or lesions noted and no wounds <Dr. Santosh Welch MD - Last Filed: 02/26/23 16:32> Physical Exam Const Vital Signs: 02/26/23 14:00 02/26/23 15:52 02/26/23 15:52 Temperature 97.3 F L 98.4 F Temperature Source Temporal Temporal Pulse Rate 93 85 85 Respiratory Rate 16 16 16 Blood Pressure 138/64 H 126/64 H 126/64 H Blood Pressure Mean 88 84 84 Pulse Ox 100 99 99 Oxygen Delivery Method Room Air Room Air Room Air 02/26/23 15:52 Temperature Temperature Source Pulse Rate 85 Respiratory Rate Blood Pressure 126/64 H Blood Pressure Mean Pulse Ox 99 Oxygen Delivery Method MDM <PARVEZ Dorman - Last Filed: 02/26/23 16:35> [facility] Narrative Medical decision making narrative: Patient presenting with a bug bite and surrounding erythema edema to the dorsum of her right hand. No lymphangitic streaking, no signs of cellulitis. We will give her a dose of Decadron here and she is to continue taking Benadryl at home as needed. No need for antibiotics at this time. She will be discharged home in stable condition and is comfortable with plan. I have personally performed a face to face assessment of the patient and have reviewed the MARÍA Note. I performed a substantive portion of the visit including all aspects of the following. My bloom findings include: History: Patient was bit by mosquito last night. She has redness on the dorsum of her hand today. She states she has had a history of significant reactions to insect bites but is never had anaphylaxis. Exam: She has what appears to be a small bite between her fingers. There is circumferential erythema around this. But no lymphangitic streaking. No pain with range of motion. This really looks to be more of a bite reaction and not infection. Medical Decision Making: Unlikely to have a clinical infection in approximately 12 hours from the bite. I think this is local reaction. We should be able to treat with a dose of steroids because of her history of reactions. <Dr. Santosh Welch MD - Last Filed: 02/26/23 16:32> [facility] Narrative Medical decision making narrative: I have personally performed a face to face assessment of the patient and have reviewed the MARÍA Note. I performed a substantive portion of the visit including all aspects of the following. My bloom findings include: History: Patient was bit by mosquito last night. She has redness on the dorsum of her hand today. She states she has had a history of significant reactions to insect bites but is never had anaphylaxis. Exam: She has what appears to be a small bite between her fingers. There is circumferential erythema around this. But no lymphangitic streaking. No pain with range of motion. This really looks to be more of a bite reaction and not infection. Medical Decision Making: Unlikely to have a clinical infection in approximately 12 hours from the bite. I think this is local reaction. We should be able to treat with a dose of steroids because of her history of reactions. Discharge Plan Triage Chief Complaint: Bite ED Midlevel Provider: Neelam Ogden ED Provider: Santosh Welch Dx/Rx/DC Orders Clinical Impression: Allergic reaction, Bug bite Instructions: ED General Allergic Reactions Prescriptions: No Action Liletta 19.5 mcg/24 hrs (5 yrs) 52 mg intrauterine device 1 device intrauterine ONCE omeprazole 20 mg tablet,delayed release (DR/EC) 20 mg PO DAILY cephalexin 500 mg capsule 500 mg PO BID Qty: 20 0RF sulfamethoxazole-trimethoprim [sulfamethoxazole-trimethoprim] 800-160 mg tablet 1 tab PO BID Qty: 20 0RF Primary Care Provider: Rusty Frye Referrals: Rusty Frye DO [Primary Care Provider] - 5-7 Days Activity Restrictions/Additional Instructions: Please follow-up with your PCP and return for any worsening of symptoms. Disposition Disposition: Home, Self Care Discharge Date/Time: 02/26/23 15:57
[2023-02-26] MEDS: dexAMETHasone 4 MG Tablet 8 MG PO (15:50)
[2023-02-26 15:52] VITALS: BP 126/64; PULSE 85; RESP 16; TEMP 36.9; O2SAT 99
== END 2023-02-26 15:57 | disposition home or self-care (01) ==
PROVIDERS: Emergency Provider Emergency Medicine; PCP Student in an Organized Health Care Education/Training Program; Visit Provider Emergency Medicine
DX: S60.561A Insect bite (nonvenomous) of right hand, initial encounter (principal); Z87.891 Personal history of nicotine dependence; X58.XXXA Exposure to other specified factors, initial encounter
CPT/HCPCS: 99283

== ENCOUNTER 2023-05-03 08:30 | Day surgery (SDC) | payer BC, SELFPAY ==
[2023-05-03] MEDS: Lactated Ringers 1,000 ML 15 ML IV (08:52)
[2023-05-03 08:54] VITALS: BP 115/55; PULSE 77; RESP 16; TEMP 36.8; O2SAT 100; BMI 27.6
--- NOTE | 2023-05-03 09:30 | IMM_PTH ---
PATIENT: ALAN COLUNGA LOC: EN U#:[id number] AGE/SX: 42/F ROOM: RE05/03/[address]: Dr. Jd Sterling MD : 1980 BED: DIS: 05/03/2023 SPEC #: [id number] RECD: 05/03/23 13:48 STATUS: AMANDA REQ #: [id number] DOMINIQUE: 05/03/23 09:[address]: Jd Sterling DEPT: IMMUNOHISTOCHEMISTRY RECD BY: Katelynn Goodrich ENTERED: 05/03/23 13:48 SP TYPE: IMMUNO OTHR DR: Dr. Rusty Frye DO Tissues: Stomach, NOS Procedures: H Pylori (initial) PHYSICIAN & INSTITUTION [place] [id number] SPECIMEN INFORMATION: Tissue Source: Antrum Clinical Info: Epigastric pain Specimen Number: [id number] CPT code: 41620 METHODOLOGY: Deparaffinized sections of prefer/formalin-fixed tissue or PAP/DQ stained slides are incubated with monoclonal/polyclonal antibodies/oligonucleotide probes. Localization is made via biotin free immunoperoxidase method. Appropriate controls are performed and reacted as expected. Results on target cell population are indicated in the following table: RESULTS: ANTIBODY / CLONE RESULT H Pylori (polyclonal) negative These tests were developed and their performance characteristics determined by [facility]. They may not have been cleared or approved by the U.S. Food and Drug Administration. The FDA has determined that such clearance or approval is not necessary. The above immunohistochemical/dualISH markers are ordered and reviewed by the Pathologist. INTERPRETATION: Antrum, biopsy: Negative for Helicobacter pylori organisms. SJ:sophie 05/04/2023
--- NOTE | 2023-05-03 09:30 | EGD_PTH ---
PATIENT: ALAN COLUNGA LOC: EN U#:[id number] AGE/SX: 42/F ROOM: RE05/03/[address]: Dr. Jd Sterling MD : 1980 BED: DIS: 05/03/2023 SPEC #: [id number] RECD: 05/03/23 13:09 STATUS: AMANDA BARBY #: [id number] DOMINIQUE: 05/03/23 09:[address]: Jd Sterling DEPT: SURGICAL PATHOLOGY RECD BY: Blanca Ramesh ENTERED: 05/03/23 13:33 SP TYPE: EGD BIOPSY OTHR DR: Dr. Rusty Frye DO Tissues: Gastric mucous membrane Procedures: Surgery Specimen Level IV HEADER OPERATION: EGD PRE-OP DIAGNOSIS: Epigastric pain TISSUE SUBMITTED: Antrum biopsy for histo and H. pylori MICROSCOPIC DIAGNOSIS Antrum, biopsy: Mild gastritis. See microscopic description and comment. SJ:sophie 05/04/2023 COMMENT The results of immunohistochemistry for Helicobacter pylori will be reported separately ([id number]). MICROSCOPIC DESCRIPTION Slides are reviewed. The specimen shows fragments of gastric mucosa with chronic inflammatory cell infiltrates in the lamina propria consisting of lymphocytes and plasma cells, consistent with mild chronic gastritis. GROSS DESCRIPTION Received in fixative is one container labeled with the patient's name and designated antrum biopsy. The specimen consists of two irregular fragments of light fermin soft tissue that in aggregate measure 0.7 x 0.5 x 0.1 cm. The specimen is totally submitted in one cassette. / SJ:sophie 05/03/2023 TC:3 CPT: 85963
--- NOTE | 2023-05-03 09:52 | HP.PCM_ITS ---
History and Physical Date of Admission: 05/03/23 Intake Vital Signs 03/04/2314:40 03/18/2308:14 Height 5 ft 7 in 5 ft 7 in Weight: 168 lb 174 lb 2 oz BMI 26.3 27.2 BP 127/83 H 112/77 Blood Pressure Location Lt brachial Rt brachial Position Sitting Sitting Respiration 16 16 Pulse 107 H 80 Pulse Source Monitor NIBP Temp 97.8 F Temp Source Temporal Pulse Oximetry (%) 98 100 Oxygen Delivery Method room air room air Intake Visit Reasons: SELF REFERRED POSSIBLE STOMACH ULCER Chief Complaint: epigastric pain Modeling And Simulation Analyst Required: No Is patient in pain?: No Allergies miconazole [From Monistat 7] Allergy (Intermediate, Verified 03/18/23 08:15) Otherpovidone-iodine Allergy (Mild, Verified 03/18/23 08:15) Rashhydrocodone Adverse Reaction (Mild, Verified 03/18/23 08:15) Nausea/Vom/Diarrheaazithromycin [From Zithromax Z-Nadeem] Adverse Reaction (Verified 03/18/23 08:15) Upset Stomach Medications levonorgestrel 20.4 mcg/24 hrs (8 yrs) 52 mg intrauterine device (Liletta) 1 device intrauterine ONCE 02/01/19 [History Confirmed 03/18/23] omeprazole 20 mg tablet,delayed release 20 mg PO DAILY 10/10/20 [History Confirmed 03/18/23] Is last menstrual period known: No Post menopausal: No Patient : No [facility] Medical History (Updated 03/18/23 @ 08:[address] Jd Sterling MD) Acute sinusitis, unspecified Contact with and (suspected) exposure to other viral communicable diseases Osteoarthritis Surgical History delivery delivered Edilberto's duct cyst H/O knee surgery History of ankle surgery History of appendectomy Family History Mother Cancer LungAunt Breast cancer Social History household members: spouse and children Smoking Status: Former smoker alcohol intake: never substance use type: does not use caffeine: Yes what type of physical activity do you participate in: none seatbelt use: always do you feel safe at home: Yes additional social history: seperated- HPI HPI HPI: Patient is a 42-year-old female here for epigastric pain. She says this is been going on for several years. She has been taking intermittent omeprazole for several years. She says she has been taking it daily for the last 4 to 6 months. She has not experienced any improvement. She says the pain is ep igastric in nature. She says it is worse when she has an empty stomach. She says eating does not make it worse. ROS General General: No weight change, appetite, fatigue, colon cancer, breast cancer or weakness HEENT HEENT: No difficulty swallowing, eye injury, eye surgery, swollen glands or hoarseness Endo Endocrine: No thyroid disease, diabetes mellitus, thyroid cancer, Hair loss, heat intolerance or cold intolerance Musc Musculoskeletal: Yes arthritis; No back problems, rheumatoid arthritis, gout or joint pain Cardio Cardiovascular: No murmur, pacemaker, heart disease, atrial fibrillation, high blood pressure, heart attack, heart stent, palpitations, shortness of breat with exertion or chest pain Psych Psychiatric: No depression, anxiety or hearing voices Resp Respiratory: No shortness of breath, No sleep apnea, No cough, No COPD, No asthma, No emphysema and No wheezing Gastro Gastrointestinal: Yes abdominal pain, No nausea or vomiting, No diarrhea, No constipation, No blood in stool, No acid reflux, No hemorrhoids, Yes ulcers, No gallbladder problem and No black,tarry stools [place] Hematologic: No blood thinners, No blood disorders, No bleeding, No anemia and No blood clots Neuro Neurologic: No weakness Exam Const General: cooperative Orientation: alert and oriented x3 [facility] Head: normal to inspection Neck Neck: normal visual inspection and full ROM Chest Chest palpation & inspection: normal inspection of the chest Resp Effort & Inspection: normal respiratory effort Auscultation: clear to auscultation bilaterally Cardio Rate: regular rate Rhythm: regular rhythm GI Inspection: non-distended Palpation: soft and nontender Skin General: no rashes or lesions noted Neuro General: patient alert and patient oriented x3 Extrem General: full ROM Psych Appearance: grossly normal Mental Status: mental status grossly normal Assessment and Plan Assessment and Plan (1) Epigastric pain: Status: Acute Plan: Patient is having epigastric pain I recommend EGD. She is already tried omeprazole to no avail. I explained endoscopy in detail to the patient. I explained the risks including but not limited to stroke or heart attack with anesthesia, perforation of the GI tract, bleeding, infection. I explained that any of these could necessitate further emergency surgery. The patient understands and all questions were answered sufficiently. The patient wishes to proceed with procedure. Jd Sterling MD Pager: [facility] [address] [place] [address], [address] [place] [address] Office: I have examined the patient and the H&P has been reviewed. There are no clinical changes since date of exam.
--- NOTE | 2023-05-03 10:11 | OP.EGD_ITS ---
Patient Name: Melony Liang Procedure Date: 05/03/2023 10:00 AM Date of : 1980 Age: 42 Procedure: Upper GI endoscopy Indications: Epigastric abdominal pain Providers: Jd Sterling MD Medicines: Monitored Anesthesia Care Patient Profile: This is a 42 year old female. Refer to note in patient chart for documentation of history and physical. Complications: No immediate complications. Procedure: Pre-Anesthesia Assessment: - Prior to the procedure, a History and Physical was performed, and patient medications and allergies were reviewed. The patient's tolerance of previous anesthesia was also reviewed. The risks and benefits of the procedure and the sedation options and risks were discussed with the patient. All questions were answered, and informed consent was obtained. Prior Anticoagulants: The patient has taken no anticoagulant or antiplatelet agents. After reviewing the risks and benefits, the patient was deemed in satisfactory condition to undergo the procedure. After obtaining informed consent, the endoscope was passed under direct vision. Throughout the procedure, the patient's blood pressure, pulse, and oxygen saturations were monitored continuously. The Endoscope was introduced through the mouth, and advanced to the fourth part of duodenum. The upper GI endoscopy was accomplished without difficulty. The patient tolerated the procedure well. Scope In: 10:05:26 AM Scope Out: 10:07:47 AM Total Procedure Duration Time 0 hours 2 minutes 21 seconds Findings: Localized mild inflammation characterized by linear erosions was found in the prepyloric region of the stomach. Biopsies were taken with a cold forceps for Helicobacter pylori testing. The esophagus was normal. The examined duodenum was normal. Impression: - Gastritis. Biopsied. - Normal esophagus. - Normal examined duodenum. Recommendation: - Discharge patient to home. - Resume previous diet. - Continue present medications. - Await pathology results. - Perform an abdominal ultrasound at appointment to be scheduled. Procedure Code(s): --- Professional --- 00062, Esophagogastroduodenoscopy, flexible, transoral; with biopsy, single or multiple Diagnosis Code(s): --- Professional --- K29.70, Gastritis, unspecified, without bleeding R10.13, Epigastric pain CPT copyright 2021 [employer]. All rights reserved. The codes documented in this report are preliminary and upon registered dental hygienist review may be revised to meet current compliance requirements. Jd Sterling MD 05/03/2023 10:11:31 AM This report has been signed electronically. Number of Addenda: 0 Note Initiated On: 05/03/2023 10:00 AM
--- NOTE | 2023-05-03 10:11 | OP.CCLET_ITS ---
05/03/2023 Rusty Frye Do Re : Upper GI endoscopy procedure for Melony Monterrosor Melva This procedure was performed on Wednesday, May 03, 2023. My impressions and recommendations are as follows: Impressions : - Gastritis. Biopsied. - Normal esophagus. - Normal examined duodenum. Recommendations : - Discharge patient to home. - Resume previous diet. - Continue present medications. - Await pathology results. - Perform an abdominal ultrasound at appointment to be scheduled. My findings are described in the full procedure note, which is enclosed. If I can be of further assistance, please feel free to contact me at Doctor phone number(s): , Work: . Sincerely, Jd Sterling MD 05/03/2023 10:11:31 AM This report has been signed electronically.
[2023-05-03 10:20] VITALS: BP 115/55; BP 96/49; PULSE 74; RESP 18; TEMP 36.3; O2SAT 96
[2023-05-03 10:22] VITALS: BP 115/55; BP 97/49; PULSE 69; RESP 18; O2SAT 99
[2023-05-03 10:25] VITALS: BP 115/55; BP 93/45; PULSE 68; RESP 18; O2SAT 99
[2023-05-03 10:30] VITALS: BP 115/55; BP 98/50; PULSE 63; RESP 18; TEMP 36.8; O2SAT 100
[2023-05-03 10:59] VITALS: BP 115/55
== END 2023-05-03 11:11 | disposition home or self-care (01) ==
LOC: EN 08:33 → AC 08:35
PROVIDERS: PCP Student in an Organized Health Care Education/Training Program; Referring Provider Student in an Organized Health Care Education/Training Program; Visit Provider Surgery
PROC: 0DJ08ZZ Inspection of Upper Intestinal Tract, Via Natural or Artificial Opening Endoscopic (ICD-10-PCS; CPT 43235; principal; 2023-05-03 09:25)
DX: K29.70 Gastritis, unspecified, without bleeding (principal); R10.13 Epigastric pain; Z87.891 Personal history of nicotine dependence
CPT/HCPCS: 43239; 88305; 88342; J7120

== ENCOUNTER 2023-05-07 22:09 | Emergency (ER) | payer BC, SELFPAY ==
[2023-05-07 22:09] VITALS: BP 151/96; PULSE 107; RESP 16; TEMP 36.8; O2SAT 98; BMI 28.2
--- NOTE | 2023-05-07 22:10 | EKG12_ITS ---
Test Reason : CP Blood Pressure : / mmHG Vent. Rate : 104 BPM Atrial Rate : 104 BPM P-R Int : 188 ms QRS Dur : 090 ms QT Int : 346 ms P-R-T Axes : 054 049 002 degrees QTc Int : 454 ms Sinus tachycardia Nonspecific T wave abnormality Abnormal ECG Confirmed by HUMBLE WONG, JEYSON ([id number]), primer expeditor and drier JOCE GORDILLO ([id number]) on 05/10/2023 8:44:34 A M Referred By: Confirmed By:DIANA KATE MD
--- NOTE | 2023-05-07 22:35 | RAD_ITS ---
INDICATION: chest pain EXAMINATION/TECHNIQUE: X-RAY - XR Chest 2 Views COMPARISON: FINDINGS: LINES/DEVICES: None. LUNGS: No consolidation, edema or effusion. No pneumothorax. MEDIASTINUM AND CARDIOVASCULAR STRUCTURES: Cardiac silhouette not enlarged. Central airways and mediastinal contour are unremarkable. BONES AND SOFT TISSUES: Unremarkable. RAD/Chest PA and Lateral IMPRESSION: No radiographic evidence of acute cardiopulmonary disease. Electronically Signed: Sixto Odom DO at 22:53 EST ,
[2023-05-07 22:44] LABS: Absolute Lymphocyte Count 1.72 X10^3/uL (0.83-4.51); Basophil# 0.04 X10^3/uL; Basophil% 0.6 % (0-1); Eosinophil# 0.09 X10^3/uL; Eosinophils% 1.4 % (0-5); Hematocrit 42.9 % (37-47); Hemoglobin 14.5 g/dL (12.0-15.0); Lymphocyte # 1.72 X10^3/ul (0.83-4.51); Lymphocyte % 27.5 % (19-41); Mean Corp Hgb Conc 33.8 g/dL (32-36); Mean Corpuscular Hgb 29.8 pg (27.0-32.0); Mean Corpuscular Volume 88.1 fL (81-99); Mean Platelet Vol. 10.1 fl (6.2-12.0); Monocyte# 0.41 X10^3/uL; Monocyte% 6.6 % (0-10); NRBC Flagged by Analyzer 0 % (0-5); Neutrophil # 3.98 X10^3/uL (2.7-7.7); Neutrophil % 63.7 % (47-70); Platelet Count 254 K/mm3 (150-450); RBC Distribution Width CV 12.1 % (11.6-14.6); RBC Distribution Width SD 39.3 fl (35.1-43.9); Red Blood Count 4.87 M/mm3 (4.2-5.4); White Blood Count 6.3 K/mm3 (4.4-11.0)
--- NOTE | 2023-05-07 22:50 | EX.ED.DYSGE1 ---
HPI History of Present Illness Chief Complaint: Chest Pain Informant: patient and spouse/S.O. Narrative Narrative: Patient is a 42-year-old female with no significant past medical history. She states that she has been having a lot of upper abdominal pain and underwent an EGD 2 days ago. Since that time she has had midsternal chest discomfort. He states the pain will wax and wane but will never completely resolve. She states there is no associated nausea vomiting diaphoresis or shortness of breath. He denies any history of cardiac disease at a young age. She states that other than the EGD there has been no recent travel or surgery or history of DVT/PE. However as the pain will not resolve she has concern that this could be potential cardiac in nature and therefore comes in for evaluation [facility] Medical History Acute sinusitis, unspecified Alcohol use Arthritis Contact with and (suspected) exposure to other viral communicable diseases Former smoker Migraine headache Osteoarthritis Home Medications omeprazole 20 mg tablet,delayed release 20 mg PO DAILY 10/10/20 [History Last Taken Unknown] Allergy/AdvReac Type Severity Reaction Status Date / Time miconazole [From Monistat 7] Allergy Intermediate Other Verified 05/07/23 22:14 povidone-iodine Allergy Mild Rash Verified 05/07/23 22:14 hydrocodone AdvReac Mild Nausea/Vom/ Verified 05/07/23 22:14 Diarrhea azithromycin AdvReac Upset Verified 05/07/23 22:14 [From Zithromax Z-Nadeem] Stomach Family History Mother Cancer Lung Aunt Breast cancer Surgical History delivery delivered Edilberto's duct cyst H/O knee surgery History of ankle surgery History of appendectomy Social History household members: spouse and children Smoking Status: Former smoker alcohol intake: never substance use type: does not use caffeine: Yes what type of physical activity do you participate in: none seatbelt use: always do you feel safe at home: Yes additional social history: seperated- ROS ROS ED Constitutional Constitutional ED: Denies chills or fever(s) ENT ENT ED: Denies sore throat Cardiovascular Cardiovascular: Reports chest pain; Denies palpitations or racing heartbeat Respiratory/Chest Respiratory/Chest: Denies cough or dyspnea Gastrointestinal Gastrointestinal: Reports abdominal pain; Denies diarrhea, nausea or vomiting Genitourinary Genitourinary ED: Denies dysuria Musculoskeletal Musculoskeletal: Denies back pain, myalgias or neck pain Integumentary Denies rash Neurologic Neurologic: Denies headache(s) Hematologic/Lymphatic Hematologic/Lymphatic: Denies easy bleeding or easy bruising EXAM Physical Exam Const Vital Signs: 05/07/23 22:09 05/07/23 22:13 Temperature 98.2 F Temperature Source Oral Pulse Rate 107 H Respiratory Rate 16 Respiratory Effort Normal Non-Labored Blood Pressure 151/96 H Blood Pressure Mean 114 Pulse Ox 98 Oxygen Delivery Method Room Air Positive well nourished and well developed General Appearance ED: well developed; Negative for pallor HEENT Reports moist mucous membranes HEENT Narrative: No tongue or lip swelling no oral lesions no airway edema or compromise Eyes PERRL and EOMs intact bilaterally General Eye ED: Negative for scleral icterus Neck supple and no JVD Chest Wall Chest Narrative: There is reproducible midsternal chest pain with palpation without bony deformity or crepitance noted Resp normal respiratory effort and clear to auscultation bilaterally Cardio regular rate and regular rhythm Rate: other Other Details: Heart has a slightly tachycardic rate with regular rhythm however there are no associated murmurs rubs or gallops Radial and carotid pulses are equal and symmetric GI non-distended GI Narrative: Abdomen is soft and nondistended with pain in the midepigastric region which patient states has been present for multiple weeks which is why she had the EGD there is no voluntary guarding or rigidity or pulsatile mass and negative Gomez sign Auscultation: normoactive bowel sounds Palpation: soft Extremity normal to inspection Extremity Narrative: No asymmetric edema no pitting edema negative Homans' sign bilaterally Neuro oriented x3, CN's II-XII intact bilaterally and no sensory deficits noted Sensorium / Orientation: alert Motor Exam: strength 5/5 throughout Psych Psych Narrative: Patient has a nervous/anxious affect Skin no rashes or lesions noted General Skin Exam: Negative for jaundice or pallor MDM MDM MDM Narrative Medical decision making narrative: Patient presented to the ER slightly tachycardic and hypertensive but otherwise with stable vitals. He is low risk for cardiovascular disease as well as DVT/PE. However with complaint of 2 days of persistent chest discomfort in the midline there is concern for acute coronary syndrome versus DVT/PE versus gastritis versus GERD versus pneumomediastinum or esophageal rupture especially with recent EGD. Secondary to his basic blood work was obtained. Labs showed no clinically significant findings with a normal D-dimer going against DVT/PE as well as aortic dissection and normal troponin going against acute coronary syndrome. Chest x-ray also revealed no sign of pneumothorax or pneumomediastinum or lung infection. On reevaluation patient's vitals remained stable and she is in no acute distress. Overall patient is low risk for cardiovascular disease as well as DVT/PE and when her lab values correlate this. Therefore this time I do not feel there is need for further workup and patient is otherwise safe for discharge History & Record Review Discussion w/independent historian: Patient and Significant other Lab Data Attestation: I reviewed the patient's lab results. Labs: Laboratory Results - last 24 hr 05/07/23 22:15 WBC 6.3 RBC 4.87 Hgb 14.5 Hct 42.9 MCV 88.1 MCH 29.8 MCHC 33.8 RDW Std Deviation 39.3 RDW Coeff of Nathanael 12.1 Plt Count 254 MPV 10.1 Immature Gran % (Auto) 0.200 Neut % (Auto) 63.7 Lymph % (Auto) 27.5 [place] % (Auto) 6.6 Eos % (Auto) 1.4 Baso % (Auto) 0.6 Absolute Neuts (auto) 4.0 Absolute Lymphs (auto) 1.72 Nucleated RBC % 0 D-Dimer Quant (PE/DVT) 0.43 Sodium 141 Potassium 3.5 Chloride 107 Carbon Dioxide 31.0 Anion Gap 3 L BUN 25 H Creatinine 0.80 Estim Creat Clear Calc 90.90 Est GFR (MDRD) Af Amer 101 Est GFR (MDRD) Non-Af 84 BUN/Creatinine Ratio 31.1 H Glucose 95 Calcium 9.8 Magnesium 2.2 Troponin I High Sens 6 Radiography Diagnostic Testing: Clinical Impression(s) from Imaging Studies Chest X-Ray 05/07/23 22:35 IMPRESSION: No radiographic evidence of acute cardiopulmonary disease. Electronically Signed: Sixto Odom DO at 22:53 EST Reading Location ID and State: [facility] / [place] Tel [phone], Service support , 2 view chest x-ray as interpreted by the emergency medicine physician reveals no acute infiltrate pneumothorax pleural effusion or widening of the mediastinum Discharge Plan Triage Chief Complaint: Chest Pain ED Provider: Humberto Muñoz Dx/Rx/DC Orders Clinical Impression: Acute nonspecific chest pain with low risk of coronary artery disease, PCOS (polycystic ovarian syndrome) Instructions: ED Chest Pain, Uncertain Cause Prescriptions: No Action omeprazole 20 mg tablet,delayed release (DR/EC) 20 mg PO DAILY Primary Care Provider: Rusty Frye Referrals: Rusty Frye DO [Primary Care Provider] - Activity Restrictions/Additional Instructions: Your workup today shows no signs of cardiac damage or potential blood clot. I feel your symptoms are most likely related to esophageal irritation from your recent EGD. If your symptoms fail to improve or worsen please return to the ER for repeat evaluation Disposition Disposition: Home, Self Care
[2023-05-07 22:56] LABS: D-Dimer Quantitative (DVT/PE) 0.43 FEU/ug/m (0.27-0.49)
[2023-05-07 23:09] VITALS: BP 134/83; PULSE 96; RESP 14; RESP 15; O2SAT 96
[2023-05-07 23:27] LABS: Anion Gap 3 (5-15); BUN 25 mg/dL (7-18); BUN/Creat Ratio 31.1 RATIO (10-20); Calcium,Total 9.8 mg/dL (8.5-10.1); Chloride 107 mmol/L (98-107); EST Glomerular Filtration Rate 84 mL/min (>60); Est Glom Filt Rate - Afr Amer 101 mL/min (>60); Glucose 95 mg/dL (74-106); Magnesium 2.2 mg/dL (1.6-2.6); Potassium 3.5 mmol/L (3.5-5.1); Sodium Level 141 mmol/L (136-145); Troponin-I HS 6 pg/mL (3.0-54.0)
== END 2023-05-07 23:43 | disposition home or self-care (01) ==
PROVIDERS: Emergency Provider Emergency Medicine; PCP Student in an Organized Health Care Education/Training Program; Visit Provider Emergency Medicine
DX: R07.9 Chest pain, unspecified (principal); E28.2 Polycystic ovarian syndrome; Z87.891 Personal history of nicotine dependence; Z79.899 Other long term (current) drug therapy
CPT/HCPCS: 71046; 80048; 83735; 84484; 85025; 85379; 93005; 99284

== ENCOUNTER → 2023-05-12 | Outpatient (CLI) | payer BC, SELFPAY ==
--- NOTE | 2023-05-12 08:29 | US_ITS ---
STUDY: ABDOMINAL ULTRASOUND - RIGHT UPPER QUADRANT REASON FOR VISIT: Female, 42 years old epigastric pain/EGD neg TECHNIQUE: Ultrasound evaluation of the right upper quadrant was performed with real-time and static sánchez-scale imaging. TECHNICAL QUALITY: Adequate. COMPARISON: None. FINDINGS: Liver: The liver measures 15.5 cm. There is normal echogenicity of the liver. The bile ducts are within normal limits. There is hepatic color flow. The direction of portal flow is hepatopetal. There is no demonstrated mass lesion. Gallbladder: Normal distended gallbladder. The gallbladder wall measures 2.2 mm. There is a negative sonographic Gomez''s sign. There is no pericholecystic fluid. There are no gallstones. Common Bile Duct (C.B.D.): The common bile duct measures 6.4 mm. Pancreas: Normal size of the head, body and tail of the pancreas. There is normal echogenicity of the pancreas. There is no demonstrated pancreatic mass or cyst. Right Kidney: Normal size of the right kidney. The right kidney measures 12.4 cm x 5.8 cm x 3.9 cm. Normal renal cortex. Echogenic renal pyramids. Medullary sponge kidney should be ruled out. The right cortex measures 1.6 cm. There is no demonstrated renal mass or cyst. There is no right hydronephrosis. US/Gallbladder IMPRESSION: Normal right upper quadrant ultrasound examination. Echogenic renal pyramids. Medullary sponge kidney should be ruled out. Electronically Signed: Zeyad Metcalf MD at 13:38 EST ,
== END | disposition home or self-care (01) ==
LOC: US 08:28
PROVIDERS: PCP Student in an Organized Health Care Education/Training Program; Referring Provider Surgery; Visit Provider Surgery
DX: R10.13 Epigastric pain (principal)
CPT/HCPCS: 76705

== ENCOUNTER 2023-08-14 06:04 | Emergency (ER) | payer BC, SELFPAY ==
[2023-08-14 06:05] VITALS: BP 127/76; PULSE 99; RESP 18; TEMP 36.1; O2SAT 99; BMI 28.3
--- NOTE | 2023-08-14 06:18 | EDS_ITS ---
HPI HPI - GI History of Present Illness Chief Complaint: Abd Pain Narrative Narrative: 42-year-old female past medical history of previous C-sections, presents with epigastric pain that began yesterday. She states she awoke with that and now has sharp, stabbing pain whenever she moves. Laying down and sitting up makes it worse. Remaining still makes it better. She states any type of movement causes her to have the pain. She took Excedrin because she had a migraine, but did not seem to help her. She felt like her pain was getting worse so she presents to the emergency department. She denies any fevers or chills, no nausea or vomiting, no problems with bowel movement. PFSH PFS Medical History Acute sinusitis, unspecified Alcohol use Arthritis Contact with and (suspected) exposure to other viral communicable diseases Former smoker Migraine headache Osteoarthritis Home Medications ciprofloxacin HCl 500 mg tablet (Cipro) 500 mg PO BID #20 tabs 08/14/23 [Rx Last Taken Unknown] cyclobenzaprine 10 mg tablet 10 mg PO TID PRN PRN muscle spasm 08/14/23 [History Last Taken Unknown] escitalopram oxalate 5 mg tablet 5 mg PO DAILY 08/14/23 [History Last Taken Unknown] meloxicam 15 mg tablet 15 mg PO DAILY 08/14/23 [History Last Taken Unknown] metronidazole 500 mg tablet 500 mg PO TID #30 tabs 08/14/23 [Rx Last Taken Unknown] Allergy/AdvReac Type Severity Reaction Status Date / Time miconazole [From Monistat 7] Allergy Intermediate Other Verified 08/14/23 06:04 povidone-iodine Allergy Mild Rash Verified 08/14/23 06:04 hydrocodone AdvReac Mild Nausea/Vom/ Verified 08/14/23 06:04 Diarrhea azithromycin AdvReac Upset Verified 08/14/23 06:04 [From Zithromax Z-Nadeem] Stomach Family History Mother Cancer Lung Aunt Breast cancer Surgical History delivery delivered Edilberto's duct cyst H/O knee surgery History of ankle surgery History of appendectomy Social History household members: spouse and children Smoking Status: Former smoker alcohol intake: never substance use type: does not use caffeine: Yes what type of physical activity do you participate in: none seatbelt use: always do you feel safe at home: Yes additional social history: seperated- ROS ROS ED ROS Narrative Constitutional: No fever, no chills. HEENT: No sore throat. No neck pain. No loss of vision. No rhinorrhea. Cardiovascular: No chest pain. No palpitations. No pedal edema. Respiratory: No cough, no shortness of breath. Abdominal: Epigastric to periumbilical abdominal pain. Worse with movement. Relieved by remaining still. No nausea. No vomiting. No diarrhea. Genitourinary: No dysuria. No hematuria. Musculoskeletal: No myalgias. No arthralgias. Neurologic: No headaches. No dizziness. No lightheadedness. Skin: No rash. No change in color. Psychiatric: No depression. No anxiety. EXAM Physical Exam Const Vital Signs: 08/14/23 06:05 Temperature 97 F L Temperature Source Temporal Pulse Rate 99 Respiratory Rate 18 Blood Pressure 127/76 H Blood Pressure Mean 93 Pulse Ox 99 MDM MDM MDM Narrative Medical decision making narrative: In the differential diagnosis is pancreatitis versus transverse colon diverticulitis versus abdominal wall strain. She seems to have pain with movement. Diverticulitis is less favored because she is showing no other symptoms such as fever, or diarrhea, or obstipation. Comprehensive workup was pursued. I do feel CT imaging is indicated. Patient has an IUD in place so she has no concern for . I reviewed her laboratory work she has normal white count of 8.6, hemoglobin normal at 14.0, hematocrit 41.8, platelet count normal at 278. CMP was obtained and reviewed and she has a normal sodium of 139, potassium 3.7, normal BUN of 14 and creatinine 0.82. While glucose is appropriately elevated at 109 she has an anion gap low at 4. AST and ALT are normal. She has normal lipase, so I do not feel that she has an acute pancreatitis. Upon repeat examination after CT scanning at approximately 7 AM, she is resting comfortably on the cot. She will be given Toradol 30 mg intravenously for analgesia with the possibility that this could be more musculoskeletal in nature as she has pain with movement of the abdominal wall. However, after review of t he CT scan radiology report there is inflammation in the mid transverse colon without free air or abscess development. She was given her first doses of Cipro and Flagyl here in the emergency department and prescription written for the next 10 days. She declined any stronger narcotic pain medication, although she has tolerated Percocet in the past but not Vicodin, she states she prefers to take [id number] analgesics. She will follow-up with her primary care provider in the next 3 to 5 days. She will return with any fever, increased pain, new or worsening symptoms. She was told the risk of perforation and abscess development with diverticulitis. Given that she does not have a fever and elevated white count currently, and her pain is under control, I do not feel she requires admission at this time. Disposition is discharged home in stable condition. History & Record Review Discussion w/independent historian: Patient Additional record(s) reviewed:: Prior ED visit and Prior labs Lab Data Attestation: I reviewed the patient's lab results. Labs: Laboratory Results - last 24 hr 08/14/23 06:23 WBC 8.6 RBC 4.59 Hgb 14.0 Hct 41.8 MCV 91.1 MCH 30.5 MCHC 33.5 RDW Std Deviation 39.8 RDW Coeff of Nathanael 12.0 Plt Count 278 MPV 9.6 Immature Gran % (Auto) 0.200 Neut % (Auto) 73.9 H Lymph % (Auto) 16.0 L [place] % (Auto) 8.7 Eos % (Auto) 0.7 Baso % (Auto) 0.5 Absolute Neuts (auto) 6.4 Absolute Lymphs (auto) 1.38 Nucleated RBC % 0 Sodium 139 Potassium 3.7 Chloride 106 Carbon Dioxide 29.0 Anion Gap 4 L BUN 14 Creatinine 0.82 Estim Creat Clear Calc 100.38 Est GFR (MDRD) Af Amer 99 Est GFR (MDRD) Non-Af 82 BUN/Creatinine Ratio 17.0 Glucose 109 H Calcium 9.1 Total Bilirubin 0.70 AST 20 ALT 25 Alkaline Phosphatase 93 Total Protein 7.2 Albumin 3.7 Globulin 3.5 Albumin/Globulin Ratio 1.1 Lipase 34 Radiography Diagnostic Testing: Clinical Impression(s) from Imaging Studies Abdomen/Pelvis CT 08/14/23 06:33 IMPRESSION: 1. Mild diverticulitis along the superior aspect of the mid transverse colon in the mid epigastrium. No abscess or extraluminal gas. 2. Retroverted uterus with IUD in good position. 3. Extensive diverticulosis of the descending and sigmoid colon. Electronically Signed: Dread Bob MD at 7:19 EDT , Discharge Plan Triage Chief Complaint: Abd Pain ED Provider: Uli Shine Dx/Rx/DC Orders Clinical Impression: Abdominal pain, Diverticulitis large intestine Instructions: ED Diverticulitis Prescriptions: New ciprofloxacin HCl [Cipro] 500 mg tablet 500 mg PO BID Qty: 20 0RF metronidazole 500 mg tablet 500 mg PO TID Qty: 30 0RF No Action cyclobenzaprine 10 mg tablet 10 mg PO TID PRN PRN (Reason: muscle spasm) meloxicam 15 mg tablet 15 mg PO DAILY escitalopram oxalate 5 mg tablet 5 mg PO DAILY Primary Care Provider: Rusty Frye Referrals: Rusty Frye DO [Primary Care Provider] - 3-5 Days Activity Restrictions/Additional Instructions: Return with fever, increased pain, new or worsening symptoms. Follow-up with your primary care provider in the next 3 to 5 days for another examination. Make sure you take all of the antibiotics as directed. Disposition Disposition: Home, Self Care
[2023-08-14 06:29] LABS: Absolute Lymphocyte Count 1.38 X10^3/uL (0.83-4.51); Absolute Neutrophil Count 6.4 X10^3/uL (2.0-7.7); Basophil# 0.04 X10^3/uL; Basophil% 0.5 % (0-1); Eosinophil# 0.06 X10^3/uL; Eosinophils% 0.7 % (0-5); Hematocrit 41.8 % (37-47); Lymphocyte # 1.38 X10^3/ul (0.83-4.51); Mean Corp Hgb Conc 33.5 g/dL (32-36); Mean Corpuscular Hgb 30.5 pg (27.0-32.0); Mean Corpuscular Volume 91.1 fL (81-99); Mean Platelet Vol. 9.6 fl (6.2-12.0); Monocyte# 0.75 X10^3/uL; Monocyte% 8.7 % (0-10); NRBC Flagged by Analyzer 0 % (0-5); Neutrophil # 6.37 X10^3/uL (2.7-7.7); Neutrophil % 73.9 % (47-70); Platelet Count 278 K/mm3 (150-450); RBC Distribution Width SD 39.8 fl (35.1-43.9); Red Blood Count 4.59 M/mm3 (4.2-5.4); White Blood Count 8.6 K/mm3 (4.4-11.0)
[2023-08-14] MEDS: 0.9% Normal Saline (1000mL) 1,000 ML 1000 ML IV (06:29)
--- NOTE | 2023-08-14 06:33 | CT_ITS ---
EXAM: CT ABDOMEN AND PELVIS WITH INTRAVENOUS CONTRAST CLINICAL INDICATION: epigastric pain since yesterday TECHNIQUE: Helically acquired images were obtained of the abdomen and pelvis with intravenous contrast. This CT exam was performed using one or more of the following dose reduction techniques: automated exposure control, adjustment of the mA and/or kV according to patient size, and/or use of iterative reconstruction technique. CONTRAST: 100 cc of Isovue-370 IV. RADIATION DOSE: CTDIvol = 13.49 mGy, DLP = 844.83 mGy-cm COMPARISON: No relevant prior studies available. FINDINGS: LOWER THORAX: Unremarkable. Lung bases are clear. No cardiomegaly. No significant pericardial effusion. ABDOMEN: LIVER: Unremarkable. Homogeneous. No focal mass. GALLBLADDER AND BILE DUCTS: Unremarkable. No calcified gallstones. No gallbladder distention or wall edema. No intra- or extrahepatic biliary ductal dilation. PANCREAS: Unremarkable. No focal cystic or solid mass. SPLEEN: Unremarkable. Normal size without focal cystic or solid mass. ADRENALS: Unremarkable. No nodules. KIDNEYS AND URETERS: Unremarkable. Normal renal size and position. No hydronephrosis. STOMACH AND BOWEL: Mild inflammatory changes around a diverticulum along the superior aspect of the transverse colon in the mid epigastrium. No extraluminal gas or abscess. Extensive diverticulosis of the descending and sigmoid colon. No stomach or bowel distention. No focal inflammatory change. PELVIS: APPENDIX: Status post appendectomy. BLADDER: Unremarkable. REPRODUCTIVE: Retroverted uterus with IUD in good position. ABDOMEN and PELVIS: INTRAPERITONEAL SPACE: Unremarkable. No ascites or other fluid collection. No free air. BONES/JOINTS: Unremarkable. No suspicious lytic or blastic abnormality. SOFT TISSUES: Unremarkable. No discrete abdominal or pelvic wall hernia. VASCULATURE: Unremarkable. Abdominal aorta is non-dilated. LYMPH NODES: Unremarkable. No enlarged lymph nodes. CT/Abdomen/Pelvis W IV Cont ONLY IMPRESSION: 1. Mild diverticulitis along the superior aspect of the mid transverse colon in the mid epigastrium. No abscess or extraluminal gas. 2. Retroverted uterus with IUD in good position. 3. Extensive diverticulosis of the descending and sigmoid colon. Electronically Signed: Dread Bob MD at 7:19 EDT ,
--- OUTSIDE RECORDS SUMMARY | 2023-08-14 06:38 | XMS RPT_ITS | CCD ---
Author Name Unknown Address [address] [place] [address] Organization [facility] Care Team Providers Care Safety Assistant Name Role Phone ALTON GRAFF Attending Unavailable TIMBO PRADO Referring Unavailabl e NO PRIMARY CARE, Primary Care Unavailable JESSI SAAVEDRA Attending Unavailable JESSI SAAVEDRA Referring Unavailable NO PRIMARY CARE, Primary Care Unavailable ALTON GRAFF Attending Unavailable TIMBO PRADO Referring Unavailabl e NO PRIMARY CARE, Primary Care Unavailable DR PHILL CRUZ DO Attending Unavailable DR PHILL CRUZ DO Primary Care Unavailable Allergies Allergy Classification Reported Allergen(s) Allergy Type Date of Onset Reaction(s) Facility (1 source) Acetaminophen / HYDROcodone; Translations: [HYDROCODONE-ACETA MINOPHEN] Drug Allergy 03-22-2018 [facility] Repository (1 source) Azithromycin; Translations: [AZITHROMYCIN] Drug Allergy 03-24-2018 [facility] Repository (1 source) Iodine; Translations: [IODINE] Drug Allergy 03-22-2018 [facility] Repository Encounters Encounter Date Encounter Type Care Provider Facility Start: 06-20-[address] PHILL CRUZ DO Facili ty:B Start: 04-18-2018 End: 04-18-2018 Patient encounter procedure ALTON GRAFF [facility] Start: 03-22-2018 End: 03-23-2018 Patient encounter procedure JESSI SAAVEDRA [facility] Start: 03-22-2018 End: 03-22-2018 Patient encounter procedure ALTON GRAFF [facility] Payers Date Payer Category Payer Unknown [id number] 1980 Unknown [id number] 1980 Unknown [id number] 2.16.8 [id number] 1982 Unknown [id number] 2.16.8 [id number] 1982 Unknown [id number] [id number] Unknown [id number] Summary Purpose Family History No Family History Records FoundNo Family History Records Found Advance Directives No Advanced Directives Records FoundNo Advanced Directives Records Found Additional Source Comments INFORMATION SOURCE (unrecogn ized section and content) DATE CREATED AUTHOR AUTHOR'S ORGANIZ ATION 06/21/2023 [facility] ([place]) FOR RECORDS PERTAINING TO PATIENTS WHO ARE OR HAVE BEEN ENROLLED IN A CHEMICAL DEPENDENCY/SUBSTANCEABUSE PROGRAM, SOME INFORMATION MAY BE OMITTED. This clinical summary was aggregated from multiple sources. Caution should be exercised in using it in the provision of clinical care. This summary normalizes information from multiple sources, and as a consequence, information in this document may materially change the coding, format and clinical context of patient data. In addition, data may be omitted in some cases. CLINICAL DECISIONS SHOULD BE BASED ON THE PRIMARY CLINICAL RECORDS. [facility]. provides no warranty or guarantee of the accuracy or completeness of information in this document.
[2023-08-14 06:46] LABS: ALB/GLOB Ratio 1.1 RATIO (0.9-2.4); AST(SGOT) 20 U/L (15-37); Alanine Aminotransfer ALT/SGPT 25 U/L (13-56); Albumin, Serum 3.7 g/dL (3.2-5.0); Alkaline Phosphatase 93 U/L (45-117); Anion Gap 4 (5-15); BUN 14 mg/dL (7-18); Calcium,Total 9.1 mg/dL (8.5-10.1); Chloride 106 mmol/L (98-107); Creatinine, Serum 0.82 mg/dL (0.55-1.02); EST Glomerular Filtration Rate 82 mL/min (>60); Est Glom Filt Rate - Afr Amer 99 mL/min (>60); Estimated Creatinine Clearance 100.38 ml/min; Globulin 3.5 g/dL (2.2-4.2); Glucose 109 mg/dL (74-106); Lipase 34 U/L (13-75); Potassium 3.7 mmol/L (3.5-5.1); Protein, Total 7.2 g/dL (6.4-8.2); Sodium Level 139 mmol/L (136-145)
[2023-08-14] MEDS: Ciprofloxacin 500 MG Tablet PO (07:43)
[2023-08-14] MEDS: metroNIDAZOLE 500 MG Tablet PO (07:43)
[2023-08-14] MEDS: Ketorolac 30 MG/ML Syringe IV (07:43)
[2023-08-14 07:48] VITALS: BP 134/78; PULSE 64; RESP 14; TEMP 36.4; O2SAT 99
== END 2023-08-14 08:18 | disposition home or self-care (01) ==
PROVIDERS: Emergency Provider Emergency Medicine; PCP Student in an Organized Health Care Education/Training Program; Visit Provider Emergency Medicine
DX: K57.32 Diverticulitis of large intestine without perforation or abscess without bleeding (principal); Z79.899 Other long term (current) drug therapy; Z87.891 Personal history of nicotine dependence
CPT/HCPCS: 74177; 80053; 83690; 85025; 96374; 99284; J7030; Q9967; A4216

== ENCOUNTER 2023-09-08 20:32 | Emergency (ER) | payer BC, SELFPAY ==
[2023-09-08 20:34] VITALS: BP 123/55; PULSE 111; RESP 18; TEMP 36.4; O2SAT 95; BMI 28.0
[2023-09-08 20:59] LABS: Bacteria 0 SEEN /hpf (None Seen); Mucous, Urine 0 SEEN /hpf (<or=2+); White Blood Cells 0 SEEN /hpf (0-5)
[2023-09-08 21:02] LABS: Absolute Lymphocyte Count 1.21 X10^3/uL (0.83-4.51); Absolute Neutrophil Count 7.2 X10^3/uL (2.0-7.7); Basophil# 0.06 X10^3/uL; Basophil% 0.6 % (0-1); Eosinophil# 0.06 X10^3/uL; Eosinophils% 0.6 % (0-5); Hematocrit 38.9 % (37-47); Hemoglobin 13.4 g/dL (12.0-15.0); Lymphocyte # 1.21 X10^3/ul (0.83-4.51); Mean Corp Hgb Conc 34.4 g/dL (32-36); Mean Corpuscular Hgb 30.7 pg (27.0-32.0); Mean Platelet Vol. 10.1 fl (6.2-12.0); Monocyte# 0.78 X10^3/uL; Monocyte% 8.4 % (0-10); NRBC Flagged by Analyzer 0 % (0-5); Neutrophil # 7.18 X10^3/uL (2.7-7.7); Neutrophil % 77.2 % (47-70); Platelet Count 258 K/mm3 (150-450); RBC Distribution Width CV 12.5 % (11.6-14.6); RBC Distribution Width SD 41.2 fl (35.1-43.9); Red Blood Count 4.37 M/mm3 (4.2-5.4); White Blood Count 9.3 K/mm3 (4.4-11.0)
[2023-09-08 21:07] LABS: Color, Urine Yellow (Yellow); Glucose, Dipstick Normal (Normal); Ketone-Dipstick 5 mg/dl (Negative); Leukocyte Esterase-Dipstick Negative /ul (Negative); Nitrite-Dipstick Negative (Negative); Occult Blood-Urine 10 /ul (Negative); Protein-Dipstick 15 mg/dl (Negative); Specific Gravity, Urine 1.015 (1.002-1.030); Urine Bilirubin Dipstick Negative (Negative); Urine Clarity Sl. Cloudy (Clear); Urine Urobilinogen Normal (Normal)
--- NOTE | 2023-09-08 21:19 | ED.VIS.GI ---
HPI HPI - GI History of Present Illness Chief Complaint: Abd Pain Informant: patient Abdominal Pain/Flank Pain Onset: Today Context: Gradual Onset Timing: Waxes and wanes Quality: Stabbing Location: RUQ and Right Flank Worsened by: Movement Relieved by: Nothing Nausea/Vomiting/Emesis GI Symptom: Negative for Nausea or Vomiting Diarrhea/Melena/Hematochezia GI Symptom: Negative for Diarrhea, Melena or Hematochezia Associated Symptoms Associated Symptoms: Negative for Dysuria, Frequency or Hematuria Narrative Narrative: Patient presents with abdominal pain that began today. Patient states it is gradually getting worse. Patient states it is over the right side of her abdomen. Patient describes it as stabbing. Patient states it is over the right upper abdomen and radiates into her right flank. Patient states it is worse with movement. Patient states nothing seems to help with it. Patient denies any nausea or vomiting. Patient denies any diarrhea, melena, or hematochezia. Patient denies any dysuria, frequency, or hematuria. Patient admits to a low-grade fever of 100.3 at home earlier today. [facility] Medical History Acute sinusitis, unspecified Alcohol use Arthritis Bug bite Cellulitis Contact with and (suspected) exposure to other viral communicable diseases Diverticulitis Dysuria Epigastric pain Former smoker Hirsutism Inflammation of soft tissue IUD (intrauterine device) in place Migraine headache Osteoarthritis PCOS (polycystic ovarian syndrome) Pelvic pain Postcoital bleeding Recurrent candidiasis of vagina Urinary frequency Vaginal lesion Home Medications cyclobenzaprine 10 mg tablet 10 mg PO TID PRN PRN muscle spasm 08/14/23 [History Last Taken Unknown] escitalopram oxalate 5 mg tablet 5 mg PO DAILY 08/14/23 [History Last Taken Unknown] amoxicillin 875 mg-potassium clavulanate 125 mg tablet 875 mg (0.875 x 875-125 mg) PO Q12H #20 TABLETS 09/08/23 [Rx Last Taken Unknown] Allergy/AdvReac Type Severity Reaction Status Date / Time miconazole [From Monistat 7] Allergy Intermediate Other Verified 09/08/23 20:33 povidone-iodine Allergy Mild Rash Verified 09/08/23 20:33 hydrocodone AdvReac Mild Nausea/Vom/ Verified 09/08/23 20:33 Diarrhea azithromycin AdvReac Upset Verified 09/08/23 20:33 [From Zithromax Z-Nadeem] Stomach Family History Mother Cancer Lung Aunt Breast cancer Surgical History delivery delivered Edilberto's duct cyst H/O knee surgery History of ankle surgery History of appendectomy Social History household members: spouse and children Smoking Status: Former smoker alcohol intake: never substance use type: does not use caffeine: Yes what type of physical activity do you participate in: none seatbelt use: always do you feel safe at home: Yes additional social history: seperated- ROS ROS ED Constitutional Constitutional ED: Reports fever(s); Denies chills Eyes Eyes: Denies blurry vision or change in vision ENT ENT ED: Denies rhinorrhea or sore throat Cardiovascular Cardiovascular: Denies chest pain or palpitations Respiratory/Chest Respiratory/Chest: Denies cough or dyspnea Gastrointestinal Gastrointestinal: Reports abdominal pain; Denies diarrhea, melena, nausea or vomiting Genitourinary Genitourinary ED: Denies dysuria or hematuria Musculoskeletal Musculoskeletal: Reports back pain; Denies neck pain Integumentary Denies abscess or rash Neurologic Neurologic: Denies headache(s) or weakness Allergic/Immunologic Allergic/Immunologic ED: Denies mouth swelling or urticaria EXAM Physical Exam Const Vital Signs: 09/08/23 20:34 09/08/23 21:52 09/08/23 23:00 Temperature 97.5 F L Temperature Source Temporal Pulse Rate 111 H 100 78 Respiratory Rate 18 16 17 Blood Pressure 123/55 H 117/64 106/61 Blood Pressure Mean 77 81 73 Pulse Ox 95 96 97 Oxygen Delivery Method Room Air Room Air Room Air Positive well nourished and well developed General Appearance ED: well developed and NAD HEENT Reports moist mucous membranes Neck supple and no JVD Resp normal respiratory effort and clear to auscultation bilaterally Cardio regular rate and regular rhythm GI non-distended Palpation: soft and tender RUQ; Negative for guarding or rebound tenderness present Back/Spine General Back: CVA tenderness right Neuro CN's II-XII intact bilaterally, moves all extremities and no sensory deficits noted Sensorium / Orientation: alert Motor Exam: strength 5/5 throughout Psych mental status grossly normal and thought process normal MDM MDM MDM Narrative Medical decision making narrative: Differential diagnosis includes ureteral calculus, pyelonephritis, cholecystitis, cholelithiasis, pancreatitis, gastroenteritis, duodenal ulcer, peptic ulcer disease, musculoskeletal pain. CT scan of the abdomen pelvis will be obtained to assess for ureteral calculus, bowel obstruction, perforation. CBC will be obtained to assess for leukocytosis and anemia. Comprehensive metabolic profile will be obtained to assess for hepatic function, renal function, and electrolyte abnormality. Lipase will be obtained to assess for pancreatitis. Serum hCG will be obtained to assess for . Urinalysis will be obtained to assess for urinary tract infection and hematuria. Lab Data Attestation: I reviewed the patient's lab results. Lab results narrative: CBC was reviewed and was within normal limits. Comprehensive metabolic profile was reviewed and was essentially within normal limits. Glucose was slightly elevated at 180. Serum hCG was reviewed and was negative. Urinalysis was reviewed there is no evidence of urinary tract infection or hematuria. Lipase was reviewed and was normal at 51. Labs: Laboratory Results - last 24 hr 09/08/23 09/08/23 09/08/23 20:52 20:56 21:50 WBC 9.3 RBC 4.37 Hgb 13.4 Hct 38.9 MCV 89.0 MCH 30.7 MCHC 34.4 RDW Std Deviation 41.2 RDW Coeff of Nathanael 12.5 Plt Count 258 MPV 10.1 Immature Gran % (Auto) 0.200 Neut % (Auto) 77.2 H Lymph % (Auto) 13.0 L [place] % (Auto) 8.4 Eos % (Auto) 0.6 Baso % (Auto) 0.6 Absolute Neuts (auto) 7.2 Absolute Lymphs (auto) 1.21 Nucleated RBC % 0 Sodium 137 Potassium 3.8 Chloride 106 Carbon Dioxide 28.0 Anion Gap 3 L BUN 15 Creatinine 0.77 Estim Creat Clear Calc 106.49 Est GFR (MDRD) Af Amer 106 Est GFR (MDRD) Non-Af 88 BUN/Creatinine Ratio 19.5 Glucose 180 H Calcium 9.1 Total Bilirubin 0.30 AST 11 L ALT 26 Alkaline Phosphatase 95 Total Protein 7.3 Albumin 3.7 Globulin 3.6 Albumin/Globulin Ratio 1.0 Lipase 51 Serum , Qual NEGATIVE Urine Color Yellow Urine Clarity Sl. Cloudy Urine pH 8.0 Ur Specific [place] 1.015 Urine Protein 15 H Urine Glucose (UA) Normal Urine Ketones 5 H Urine Occult Blood 10 H Urine Nitrite Negative Urine Bilirubin Negative Urine Urobilinogen Normal Ur Leukocyte Esterase Negative Urine RBC 0-5 SEEN Urine WBC 0 SEEN Ur Squamous Epith Cells 5-10 SEEN Urine Bacteria 0 SEEN Urine Mucus 0 SEEN Radiography Diagnostic Testing: Clinical Impression(s) from Imaging Studies Abdomen/Pelvis CT 09/08/23 21:29 IMPRESSION: Acute uncomplicated diverticulitis at the hepatic flexure. On the prior examination in July 2023, the patient has diverticulitis involving the mid transverse colon Electronically Signed: Temo Brantley MD at 22:13 EDT , CT scan of the abdomen pelvis was obtained. There is acute uncomplicated diverticulitis at the hepatic flexure. There is no perforation or abscess noted. This was interpreted by the radiologist and was also independently reviewed by myself. Treatment and Re-Evaluation :: Patient was given IV fluids, morphine, and Zofran. Patient was feeling better on reevaluation. Patient was advised of her findings. Patient was given a dose of Augmentin here for Augmentin. Patient was instructed to follow-up with her primary care physician in 5 to 7 days for further evaluation. Patient was instructed to start with a bland diet and advance as tolerated. Patient understood and was agreeable with the plan. All questions were answered. Discharge Plan Triage Chief Complaint: Abd Pain ED Provider: Vincent Sheth Dx/Rx/DC Orders Clinical Impression: Diverticulitis, Abdominal pain Instructions: ED Diverticulitis Prescriptions: New amoxicillin-pot clavulanate [amoxicillin-pot clavulanate] 875-125 mg tablet 875 mg PO Q12H Qty: 20 0RF No Action cyclobenzaprine 10 mg tablet 10 mg PO TID PRN PRN (Reason: muscle spasm) escitalopram oxalate 5 mg tablet 5 mg PO DAILY Primary Care Provider: Rusty Frye Referrals: Rusty Frye DO [Primary Care Provider] - 5-7 Days Disposition Disposition: Home, Self Care
--- NOTE | 2023-09-08 21:29 | CT_ITS ---
INDICATION: pain EXAMINATION: CT ABDOMEN AND PELVIS WITHOUT CONTRAST - CT Abdomen And Pelvis W/O Contrast Injection TECHNIQUE: Helically acquired images were obtained of the abdomen and pelvis without oral or IV contrast. A radiation dose optimization technique was used for this scan. IV Contrast dosage and agent: None. Oral contrast: None. RADIATION DOSAGE (If Supplied By Facility): CTDIvol = ( 10.69 ) mGy, DLP = ( 547.74 ) mGycm COMPARISON: 08/14/2023 FINDINGS: LOWER CHEST: Lung bases are clear. No cardiomegaly or pericardial effusion. LIVER: The liver is normal in size, shape, and attenuation. No focal mass. GALLBLADDER AND BILIARY TREE: The gallbladder is normally distended. No gallstones. No gallbladder wall thickening or edema. No intra- or extrahepatic biliary ductal dilation. PANCREAS: No focal cystic or solid mass. SPLEEN: Normal size without focal cystic or solid mass. ADRENAL GLANDS: No nodules. KIDNEYS AND URETERS: Normal renal size and position. No hydronephrosis or nephrolithiasis. PERITONEUM: No ascites or free air. No other fluid collection. BOWEL: Pancolonic diverticulosis. There is focal, short segment wall thickening and pericolic fat stranding at the hepatic flexure centered around an inflamed diverticulum compatible with acute diverticulitis. No pericolic fluid collections or intraperitoneal free air. Previous appendectomy. Stomach and small bowel unremarkable. LYMPH NODES: No enlarged mesenteric or retroperitoneal lymph nodes. VESSELS: Aorta is non-dilated. URINARY BLADDER: Unremarkable. REPRODUCTIVE ORGANS: No pelvic masses. IUD within the retroflexed uterus. ABDOMINAL WALL: No discrete abdominal or pelvic wall hernia. BONES: No acute or suspicious osseous abnormality. CT/Abdomen/Pelvis without Cont IMPRESSION: Acute uncomplicated diverticulitis at the hepatic flexure. On the prior examination in July 2023, the patient has diverticulitis involving the mid transverse colon Electronically Signed: Temo Brantley MD at 22:13 EDT ,
[2023-09-08 21:30] LABS: AST(SGOT) 11 U/L (15-37); Alanine Aminotransfer ALT/SGPT 26 U/L (13-56); Albumin, Serum 3.7 g/dL (3.2-5.0); Alkaline Phosphatase 95 U/L (45-117); Anion Gap 3 (5-15); BUN 15 mg/dL (7-18); BUN/Creat Ratio 19.5 RATIO (10-20); Calcium,Total 9.1 mg/dL (8.5-10.1); Chloride 106 mmol/L (98-107); Creatinine, Serum 0.77 mg/dL (0.55-1.02); EST Glomerular Filtration Rate 88 mL/min (>60); Est Glom Filt Rate - Afr Amer 106 mL/min (>60); Estimated Creatinine Clearance 106.49 ml/min; Globulin 3.6 g/dL (2.2-4.2); Glucose 180 mg/dL (74-106); Internal QC Validated? YES +Cl - CLEAR BKGD; Potassium 3.8 mmol/L (3.5-5.1); Pregnancy, Serum, hCG Quali. NEGATIVE Negative; Protein, Total 7.3 g/dL (6.4-8.2); Sodium Level 137 mmol/L (136-145)
[2023-09-08] MEDS: 0.9% Normal Saline (1000mL) 1,000 ML 1000 ML IV (21:40)
[2023-09-08] MEDS: Ondansetron 4 MG/2 ML Vial IV (21:41)
[2023-09-08] MEDS: Morphine 4 MG/ML Syringe IV (21:45)
[2023-09-08 21:46] LABS: Red Blood Cells-Urine 0-5 SEEN /hpf (0-5); Squamous Epithelial Cells - UA 5-10 SEEN /hpf (5-10)
[2023-09-08 21:52] VITALS: BP 117/64; PULSE 100; RESP 16; O2SAT 96
[2023-09-08 22:41] LABS: Lipase 51 U/L (13-75)
[2023-09-08 23:00] VITALS: BP 106/61; PULSE 78; RESP 17; O2SAT 97
[2023-09-08] MEDS: Amox/Clavulanate 875 MG Tablet PO (23:40)
[2023-09-08 23:41] VITALS: BP 105/53; PULSE 68; RESP 16; TEMP 36.7; O2SAT 99
== END 2023-09-08 23:43 | disposition home or self-care (01) ==
PROVIDERS: Emergency Provider Emergency Medicine; PCP Student in an Organized Health Care Education/Training Program; Visit Provider Emergency Medicine
DX: K57.92 Diverticulitis of intestine, part unspecified, without perforation or abscess without bleeding (principal); Z87.891 Personal history of nicotine dependence
CPT/HCPCS: 74176; 80053; 81001; 83690; 84703; 85025; 96361; 96374; 96375; 99283; J7030; A4216; J2405

== ENCOUNTER 2024-02-03 07:53 | Day surgery (SDC) | payer BC, SELFPAY ==
[2024-02-03] VITALS (8 sets, daily range): BP systolic 107–122; BP diastolic 65–78; PULSE 84–106; RESP 16–18; TEMP 36.6–36.9; O2SAT 96–100; BMI 29.3
[2024-02-03] MEDS: Lactated Ringers 1,000 ML 15 ML IV (08:20)
--- NOTE | 2024-02-03 08:51 | PRE.ANES_ITS ---
ASA Classification* ASA Classification ASA Classification: 2 Assessment & Plan Anesthesia* Anesthesia Assessment Anesthesia Assessment: Discussed sedation and/or anesthesia options, risks, benefits, and alternatives with patient/parents/legal guardian/POA. Questions invited. The patient/parents/legal guardian/POA seems to understand and agrees to proceed with anesthesia plan. Reviewed the physical assessment, medical history, allergy history and patient home medications list prior to surgery/procedure/anesthetic and documented any changes. Performed airway and anesthesia risk assessments. Anesthesia Type Anesthesia Type: MAC History Source History Obtained from:: Patient and Chart Anesthesia Focused Assessment* Temperature: 98.4 F Pulse Rate: 106 Blood Pressure: 121/78 Respiratory Rate: 18 Pulse Ox: 100 Oxygen Delivery Method: Room Air Airway Assessment Mouth opens: >3 cm Mallampati Score: III Teeth Condition: Intact Neck Range of motion (ROM): Full ROM Focused Labs Anesthesia Preop lab: CBC WBC 9.3 K/mm3 (4.4-11.0) 09/08/23 20:52 RBC 4.37 M/mm3 (4.2-5.4) 09/08/23 20:52 Hgb 13.4 g/dL (12.0-15.0) 09/08/23 20:52 Hct 38.9 % (37-47) 09/08/23 20:52 Plt Count 258 K/mm3 (150-450) 09/08/23 20:52 CHEMISTRY Potassium 3.8 mmol/L (3.5-5.1) 09/08/23 20:52 Sodium 137 mmol/L (136-145) 09/08/23 20:52 Magnesium 2.2 mg/dL (1.6-2.6) 05/07/23 22:15 BUN 15 mg/dL (7-18) 09/08/23 20:52 Creatinine 0.77 mg/dL (0.55-1.02) 09/08/23 20:52 Glucose 180 mg/dL (74-106) H 09/08/23 20:52 POC Glucose 96 mg/dL (70-110) 06/13/17 07:14 TSH 0.73 uIU/mL (0.358-3.74) 09/11/19 15:18 COAG PT 11.9 SECONDS (11.7-14.9) 08/05/17 01:15 Urine Test Negative Negative 06/30/21 08:20 Tst Clinic Negative 08/03/22 07:45 Pre-Assessment Diagnosis/Proposed Procedure Planned Operative Procedure(s): COLONOSCOPY Anesthesia History 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 When Was Last Pacemaker Check QUESTION #4 FULL TEXT: You/Your Family Experience fever (hyperthermia) with Anesthesia Last Oral Intake Last Oral intake: Last Oral Intake NPO since 20:00 02/03/24 08:12 Meds taken in AM with sips of No 02/03/24 08:12 water? Meds patient instructed to take am of surgery PONV PONV - electrician journeyman wireman: PONV - electrician journeyman wireman Female Yes 02/01/24 11:45 HX of Motion Sickness No 02/01/24 11:45 HX of N/V After Surgery No 02/01/24 11:45 Non-Smoker Yes 02/01/24 11:45 Duration of Surgery greater No 02/01/24 11:45 than 60 minutes Number of Risk Factors 2 02/01/24 11:45 PONV Score Moderate Risk 02/01/24 11:45 Height & Weight Height & Weight: Anesthesia: Height & Weight Height 5 ft 7 in 02/03/24 08:12 Weight: 85 kg 02/03/24 08:12 Body Mass Index (BMI) 29.3 02/03/24 08:12 Respiratory Assessment Respiratory Assessment - electrician journeyman wireman: Respiratory Tract Infection Hx - electrician journeyman wireman Hx Respiratory Tract Infection No 02/01/24 11:45 STOP Sleep Apnea STOP Sleep Apnea - electrician journeyman wireman: STOP Sleep Apnea - electrician journeyman wireman Hx Hypertension No 02/01/24 11:45 Hx Sleep Apnea No 02/01/24 11:45 CPAP BIPAP Do you snore loudly (louder No 02/01/24 11:45 than talking or can be heard Do you often feel tired/ No 02/01/24 11:45 fatigued/ sleepy during daytime? Has anyone observed you stop No 02/01/24 11:45 breathing during sleep? STOP Results Negative 02/01/24 11:45 QUESTION #5 FULL TEXT : Do you snore loudly (louder than talking or can be heard through closed doors)? 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 Specify any problems Hx of Preganancy in last 3 No 02/01/24 11:45 Months Nurse Filling Out Transfusion [facility] 02/01/24 11:45 & Questions: Date: 02/01/24 02/01/24 11:45 Time: 11:50 02/01/24 11:45 Patient unable to answer at this time (ie. confused, unrespo /Reproduction History /Reproductive History - electrician journeyman wireman: /Reproductive Hx- electrician journeyman wireman Hx Now No 02/01/24 11:45 Gestational Age (in weeks): EDC: Hx Hx Para Hx Section SAB No 02/01/24 11:45 Active Medications Active Medications: Current Medications Generic Name Dose Route Start Last Admin Trade Name Freq PRN Reason Stop Dose Admin Lactated Ringer's 1,000 mls @ 15 mls/hr 02/03/24 08:00 02/03/24 08:20 IV 15 mls/hr .Q48H MARGARETTE Administration PFSH Medical History Anxiety History of diverticulitis Diverticulitis Alcohol use Arthritis Migraine headache Former smoker Epigastric pain Osteoarthritis Dysuria IUD (intrauterine device) in place Pelvic pain Urinary frequency Cellulitis Bug bite Inflammation of soft tissue Contact with and (suspected) exposure to other viral communicable diseases Acute sinusitis, unspecified Postcoital bleeding Recurrent candidiasis of vagina Vaginal lesion Hirsutism PCOS (polycystic ovarian syndrome) Home Medications ?Medication ?Instructions ?Recorded ?Last Taken ?Type cyclobenzaprine 10 mg tablet 10 mg PO TID PRN PRN muscle spasm 08/14/23 Unknown History fluoxetine 10 mg capsule 10 mg PO DAILY 02/01/24 Unknown History hydroxyzine HCl 50 mg tablet 50 mg PO 4X/DAY PRN PRN anxiety 02/01/24 Unknown History Allergy/AdvReac Type Severity Reaction Status Date / Time miconazole (From Monistat 7) Allergy Intermediate Other Verified 02/03/24 08:06 povidone-iodine Allergy Mild Rash Verified 02/03/24 08:06 hydrocodone AdvReac Mild Nausea/Vom/ Verified 02/03/24 08:06 Diarrhea azithromycin (From Zithromax AdvReac Upset Verified 02/03/24 08:06 Z-Nadeem) Stomach Family History Mother Cancer Lung Aunt Breast cancer Surgical History History of ankle surgery H/O knee surgery delivery delivered Edilberto's duct cyst History of appendectomy Social History household members: spouse and children Smoking Status: Former smoker alcohol intake: never substance use type: does not use caffeine: Yes what type of physical activity do you participate in: none seatbelt use: always do you feel safe at home: Yes additional social history: seperated- Review of Systems (Anesthesia) ROS Narrative System reviewed and no additional complaints, except as documented.
--- NOTE | 2024-02-03 09:00 | PCM.HP.BLA ---
History and Physical Date of Admission: 02/03/24 Intake Vital Signs 08/13/2405:05 08/29/2407:09 Height 5 ft 7 in 5 ft 7 in Weight: 178 lb BMI 27.8 BP 113/79 Blood Pressure Location Rt brachial Position Sitting Respiration 18 Pulse 85 Pulse Source Monitor Pulse Oximetry (%) 97 Oxygen Delivery Method room air Intake Visit Reasons: ED 08-13- DIVERTICULITIS Chief Complaint: F/U Diverticulitis [place] Required: No Is patient in pain?: No Allergies miconazole [From Monistat 7] Allergy (Intermediate, Verified 08/29/23 08:11) Otherpovidone-iodine Allergy (Mild, Verified 08/29/23 08:11) Rashhydrocodone Adverse Reaction (Mild, Verified 08/29/23 08:11) Nausea/Vom/Diarrheaazithromycin [From Zithromax Z-Nadeem] Adverse Reaction (Verified 08/29/23 08:11) Upset Stomach Medications cyclobenzaprine 10 mg tablet 10 mg PO TID PRN PRN muscle spasm 08/14/23 [History Confirmed 08/29/23] escitalopram oxalate 5 mg tablet 5 mg PO DAILY 08/14/23 [History Confirmed 08/29/23] [facility] Medical History (Updated 08/29/23 @ 08:[address] Jd Sterling MD) Acute sinusitis, unspecified Alcohol use Arthritis Bug bite Cellulitis Contact with and (suspected) exposure to other viral communicable diseases Diverticulitis Dysuria Epigastric pain Former smoker Hirsutism Inflammation of soft tissue IUD (intrauterine device) in place Migraine headache Osteoarthritis PCOS (polycystic ovarian syndrome) Pelvic pain Postcoital bleeding Recurrent candidiasis of vagina Urinary frequency Vaginal lesion Surgical History delivery delivered Edilberto's duct cyst H/O knee surgery History of ankle surgery History of appendectomy Family History Mother Cancer LungAunt Breast cancer Social History household members: spouse and children Smoking Status: Former smoker alcohol intake: never substance use type: does not use caffeine: Yes what type of physical activity do you participate in: none seatbelt use: always do you feel safe at home: Yes additional social history: seperated- HPI HPI HPI: The patient is here to follow-up for diverticulitis. Last month she had diverticulitis of the transverse colon which was confirmed on CT scan. She reports that her abdomen is feeling better now. She is here to discuss colonoscopy for follow-up. ROS General General: No weight change, appetite, fatigue, colon cancer, breast cancer or weakness HEENT HEENT: No difficulty swallowing, eye injury, eye surgery, swollen glands or hoarseness Endo Endocrine: No thyroid disease, diabetes mellitus, thyroid cancer, Hair loss, heat intolerance or cold intolerance Skin Skin: No rash or changing moles Breast Breast: No left breast lump, right breast lump, nipple discharge, breast pain, abnormal mammogram, abnormal US or breast enlargement Musc Musculoskeletal: No back problems, arthritis, rheumatoid arthritis, gout or joint pain Cardio Cardiovascular: No murmur, pacemaker, heart disease, atrial fibrillation, high blood pressure, heart attack, heart stent, palpitations, shortness of breat with exertion or chest pain Psych Psychiatric: Yes anxiety; No depression or hearing voices Resp Respiratory: No shortness of breath, No sleep apnea, No cough, No COPD, No asthma, No emphysema and No wheezing Gastro Gastrointestinal: No abdominal pain, No nausea or vomiting, No diarrhea, No constipation, No blood in stool, No acid reflux, No hemorrhoids, No ulcers, No gallbladder problem and No black,tarry stools [place] Hematologic: No blood thinners, No blood disorders, No bleeding, No anemia and No blood clots Neuro Neurologic: No system reviewed and no additional complaints, except as documented, No as per HPI, No abnormal gait, No abnormal hearing, No abnormal movements, No abnormal speech, No behavioral changes, No burning sensations, No confusion, No convulsions, No disequilibrium, No dizziness, No localized weakness, No frequent falls, No headache(s), No lack of coordination, No loss of vision, No memory loss, No numbness, No other visual disturbances, No radicular pain, No restless legs, No sensory deficit, No syncope, No tingling, No tremor(s), No weakness and No other Exam Const General: cooperative Orientation: alert and oriented x3 HENMT Head: normal to inspection Neck Neck: normal visual inspection and full ROM Chest Chest palpation & inspection: normal inspection of the chest Resp Effort & Inspection: normal respiratory effort Auscultation: clear to auscultation bilaterally Cardio Rate: regular rate Rhythm: regular rhythm GI Inspection: non-distended Palpation: soft and nontender Skin General: no rashes or lesions noted Neuro General: patient alert and patient oriented x3 Extrem General: full ROM Psych Appearance: grossly normal Mental Status: mental status grossly normal Assessment and Plan Assessment and Plan (1) Diverticulitis: Status: Acute Plan: The patient had transverse colon diverticulitis. I discussed this with her and reviewed her CT scan with her. I discussed colonoscopy to evaluate this area as well. I explained endoscopy in detail to the patient. I explained the risks including but not limited to stroke or heart attack with anesthesia, perforation of the GI tract, bleeding, infection. I explained that any of these could necessitate further emergency surgery. The patient understands and all questions were answered sufficiently. The patient wishes to proceed with procedure. Jd Sterling MD Pager: [facility] [address] [place] [address] [address] [place] [address] Office: I have examined the patient and the H&P has been reviewed. There are no clinical changes since date of exam.
--- NOTE | 2024-02-03 09:24 | OP.CCLET_ITS ---
02/03/2024 Rusty Frye Do Re : Colonoscopy procedure for Melony Ventura Melva This procedure was performed on Saturday, February 03, 2024. My impressions and recommendations are as follows: Impressions : - The entire examined colon is normal on direct and retroflexion views. - Diverticulosis in the sigmoid colon, in the descending colon and in the transverse colon. - No specimens collected. Recommendations : - Discharge patient to home. - Resume previous diet. - Continue present medications. - Repeat colonoscopy in 10 years for screening purposes. My findings are described in the full procedure note, which is enclosed. If I can be of further assistance, please feel free to contact me at Doctor phone number(s): , Work: . Sincerely, Jd Sterling MD 02/03/2024 9:23:14 AM This report has been signed electronically.
--- NOTE | 2024-02-03 09:24 | OP.COLON_ITS ---
Patient Name: Melony Liang Procedure Date: 02/03/2024 9:03 AM Date of : 1980 Age: 43 Procedure: Colonoscopy Indications: Follow-up of diverticulitis Providers: Jd Sterling MD Medicines: Propofol per Anesthesia Patient Profile: This is a 43 year old female. Refer to note in patient chart for documentation of history and physical. Last Colonoscopy: none. The patient's first colonoscopy is today. Complications: No immediate complications. Procedure: Pre-Anesthesia Assessment: - Prior to the procedure, a History and Physical was performed, and patient medications and allergies were reviewed. The patient's tolerance of previous anesthesia was also reviewed. The risks and benefits of the procedure and the sedation options and risks were discussed with the patient. All questions were answered, and informed consent was obtained. Prior Anticoagulants: The patient has taken no anticoagulant or antiplatelet agents. After reviewing the risks and benefits, the patient was deemed in satisfactory condition to undergo the procedure. After I obtained informed consent, the scope was passed under direct vision. Throughout the procedure, the patient's blood pressure, pulse, and oxygen saturations were monitored continuously. The Colonoscope was introduced through the anus and advanced to the cecum, identified by appendiceal orifice and ileocecal valve. The colonoscopy was performed without difficulty. The patient tolerated the procedure well. The quality of the bowel preparation was good. The ileocecal valve, appendiceal orifice, and rectum were photographed. Scope In: 9:10:53 AM Scope Withdrawal Time 0 hours 5 minutes 43 seconds Scope Out: 9:20:45 AM Total Procedure Duration Time 0 hours 9 minutes 52 seconds Findings: The entire examined colon appeared normal on direct and retroflexion views. Multiple small-mouthed diverticula were found in the sigmoid colon, descending colon and transverse colon. Impression: - The entire examined colon is normal on direct and retroflexion views. - Diverticulosis in the sigmoid colon, in the descending colon and in the transverse colon. - No specimens collected. Recommendation: - Discharge patient to home. - Resume previous diet. - Continue present medications. - Repeat colonoscopy in 10 years for screening purposes. Procedure Code(s): --- Professional --- 16523, Colonoscopy, flexible; diagnostic, including collection of specimen(s) by brushing or washing, when performed (separate procedure) Diagnosis Code(s): --- Professional --- K57.32, Diverticulitis of large intestine without perforation or abscess without bleeding K57.30, Diverticulosis of large intestine without perforation or abscess without bleeding CPT copyright 2021 [employer]. All rights reserved. The codes documented in this report are preliminary and upon manager hospitality review may be revised to meet current compliance requirements. Jd Sterling MD 02/03/2024 9:23:14 AM This report has been signed electronically. Number of Addenda: 0 Note Initiated On: 02/03/2024 9:03 AM
--- NOTE | 2024-02-03 09:27 | PCM.POST.ANE ---
Anesthesia: Postop Eval I Current Vital Signs Temperature: 98 F Pulse Rate: 90 Blood Pressure: 122/65 Respiratory Rate: 16 Pulse Ox: 97 Oxygen Delivery Method: Room Air Assessment Airway patent: Yes Spontaneous unlabored respirations: Yes Mental status: Asleep nausea: No Vomiting: No Anesthesia Complication: No Fluid Hydration Crystalloid volume administer (ml): 500 Total IV fluid infused: 500 Progress Note Anesthesia document: Postop Eval 1 completed: Yes
--- NOTE | 2024-02-03 14:56 | PCM.POSTANE2 ---
Anesthesia Postop Eval I Sum Postop Eval Completion status Anesthesia document: Postop Eval 1 completed: Yes Anesthesia Postop Eval I Summary Anesthesia Postop Eval I Summary: Anesthesia Postop Eval I: Assessment Summary Airway patent Yes 02/03/24 09:28 [email or web address] Spontaneous unlabored Yes 02/03/24 09:28 [email or web address] respirations Mental status Asleep 02/03/24 09:28 [email or web address] nausea No 02/03/24 09:28 [email or web address] Vomiting No 02/03/24 09:28 [email or web address] Anesthesia Postop Eval I: Fluid Summary Crystalloid volume administer 500 02/03/24 09:28 [email or web address] (ml) Colloids volume administered ( ml) Blood Product volume administered (ml) Total IV fluid infused 500 02/03/24 09:28 [email or web address] Anesthesia Postop Eval I: Summary Notes Anesthesia Complication No 02/03/24 09:28 [email or web address] Anesthesia Complication Comment: Post-operative progress note Anesthesia: Postop Eval II Evaluation Mental status: Awake and Calm Pain Level: 0 nausea: No Vomiting: No Complications Anesthesia Complication: No
== END 2024-02-03 10:08 | disposition home or self-care (01) ==
LOC: EN 07:53 → AC 07:55
PROVIDERS: PCP Student in an Organized Health Care Education/Training Program; Referring Provider Student in an Organized Health Care Education/Training Program; Visit Provider Surgery
PROC: 0DJD8ZZ Inspection of Lower Intestinal Tract, Via Natural or Artificial Opening Endoscopic (ICD-10-PCS; CPT 45378; principal; 2024-02-03 08:55)
DX: K57.30 Diverticulosis of large intestine without perforation or abscess without bleeding (principal); Z79.899 Other long term (current) drug therapy; Z87.891 Personal history of nicotine dependence
CPT/HCPCS: 45378; J7120; J2405

== ENCOUNTER → 2024-09-25 | Outpatient (CLI) | payer OTHER, SELFPAY ==
[2024-09-25 12:13] LABS: Hemoglobin A1c 5.2 % (<=5.6)
[2024-09-25 12:15] LABS: Vitamin B12 619 pg/mL (180-914); Vitamin D,25 Hydroxy 14.5 ng/mL (30-100)
[2024-09-28 15:08] LABS: HPV APTIMA, High Risk Negative (Negative)
== END | disposition home or self-care (01) ==
PROVIDERS: PCP Student in an Organized Health Care Education/Training Program; Referring Provider Nurse Practitioner Family; Visit Provider Nurse Practitioner Family
DX: Z13.29 Encounter for screening for other suspected endocrine disorder (principal); R53.83 Other fatigue; Z12.4 Encounter for screening for malignant neoplasm of cervix
CPT/HCPCS: 36415; 82306; 82607; 83036; 84439; 84443; 87624; 88175; G0145

== ENCOUNTER → 2024-10-09 | Outpatient (CLI) | payer OTHER, SELFPAY ==
[2024-10-09 11:14] LABS: EXAGEN MAILED SPECIMEN
[2024-10-09 12:21] LABS: Color, Urine Yellow (Yellow); Glucose, Dipstick Normal (Normal); Ketone-Dipstick Negative (Negative); Leukocyte Esterase-Dipstick Negative /ul (Negative); Nitrite-Dipstick Negative (Negative); Occult Blood-Urine Negative /ul (Negative); Protein-Dipstick Negative (Negative); Specific Gravity, Urine 1.005 (1.002-1.030); Urine Bilirubin Dipstick Negative (Negative); Urine Clarity Clear (Clear); Urine Urobilinogen Normal (Normal)
[2024-10-09 12:22] LABS: Absolute Lymphocyte Count 1.22 X10^3/uL (0.83-4.51); Basophil# 0.04 X10^3/uL; Basophil% 0.8 % (0-1); Eosinophil# 0.04 X10^3/uL; Eosinophils% 0.8 % (0-5); Hematocrit 41.6 % (37-47); Hemoglobin 14.4 g/dL (12.0-15.0); Lymphocyte # 1.22 X10^3/ul (0.83-4.51); Lymphocyte % 25.4 % (19-41); Mean Corp Hgb Conc 34.6 g/dL (32-36); Mean Corpuscular Hgb 30.2 pg (27.0-32.0); Mean Corpuscular Volume 87.2 fL (81-99); Mean Platelet Vol. 9.8 fl (6.2-12.0); Monocyte# 0.45 X10^3/uL; Monocyte% 9.4 % (0-10); NRBC Flagged by Analyzer 0 % (0-5); Neutrophil # 3.04 X10^3/uL (2.7-7.7); Neutrophil % 63.4 % (47-70); Platelet Count 298 K/mm3 (150-450); RBC Distribution Width CV 12.2 % (11.6-14.6); RBC Distribution Width SD 39.2 fl (35.1-43.9); Red Blood Count 4.77 M/mm3 (4.2-5.4); White Blood Count 4.8 K/mm3 (4.4-11.0)
[2024-10-09 12:28] LABS: Erythrocyte Sedimentation Rate 2 mm/hr (0-30)
[2024-10-09 12:49] LABS: ALB/GLOB Ratio 1.7 RATIO (0.9-2.4); AST(SGOT) 28 U/L (<=31); Alanine Aminotransfer ALT/SGPT 25 U/L (<=34); Albumin, Serum 4.6 g/dL (3.5-5.0); Alkaline Phosphatase 98 U/L (35-104); Anion Gap 12 (5-15); BUN 16 mg/dL (4-19); BUN/Creat Ratio 19.6 RATIO (10-20); CRP 3.79 mg/L (0.0-3.0); Calcium,Total 9.6 mg/dL (7.6-11.0); Carbon Dioxide 25.2 mmol/L (21.0-32.0); Chloride 102 mmol/L (98-108); Creatinine, Serum 0.82 mg/dL (0.70-1.20); EST Glomerular Filtration Rate 91 (>60); Globulin 2.6 g/dL (2.2-4.2); Glucose 97 mg/dL (70-99); Hepatitis C Antibody Nonreactive (Nonreactive); Potassium 3.7 mmol/L (3.3-5.1); Protein, Total 7.2 g/dL (5.9-8.4); Sodium Level 139 mmol/L (133-145); Total Bilirubin 0.42 mg/dL (0.00-1.30)
[2024-10-09 13:07] LABS: Hepatitis B Surface Antibody Nonreactive
[2024-10-09 13:11] LABS: Protein, Urine (Random) < 6.0 mg/dL (0.0-12.0); Protein:Creat Ratio UNABLE TO CALCULATE mg/g CRE (0-200)
[2024-10-10 19:21] LABS: Hepatitis B Surface Antigen Nonreactive (Nonreactive)
[2024-10-11 12:08] LABS: Dilute Prothrombin Time (dPT) 39.8 sec (0.0-47.6); Hexagonal Phase Phospholipid 2 1 sec (0-11); Interpretation Comment: (.); PTT-LA 46.9 sec (0.0-43.5); PTT-LA Mix 40.7 sec (0.0-40.5); Thrombin Time 19.4 sec (0.0-23.0); dPT Confirm Ratio 1.12 Ratio (0.00-1.34)
== END | disposition home or self-care (01) ==
LOC: MTLAB 10:11
PROVIDERS: PCP Student in an Organized Health Care Education/Training Program; Referring Provider Internal Medicine Rheumatology; Visit Provider Internal Medicine Rheumatology
DX: M06.4 Inflammatory polyarthropathy (principal); R76.8 Other specified abnormal immunological findings in serum
CPT/HCPCS: 36415; 80053; 81002; 82570; 84156; 85025; 85652; 86140; 86706; 86803; 87340

== ENCOUNTER → 2025-04-08 | Outpatient (CLI) | payer OTHER, SELFPAY ==
--- NOTE | 2025-04-08 13:57 | BI_ITS ---
EXAM: DIAG MAMM W/CAD, BILAT N/A CLINICAL HISTORY: F, Age 44 y/o , LEFT BR MASS. Palpable mass left breast. Patient states palpable mass has resolved. She can no longer palpate it. TECHNIQUE: Procedure Code: [id number] Modality: MG Procedure: DIAG MAMM W/CAD, BILAT. COMPARISON: Prior exam(s) dated 09/07/2024 and 06/02/2022. FINDINGS: TISSUE DENSITY: There are scattered areas of fibroglandular density. Bilateral Breast Mammographic Findings: The patient can no longer palpate the abnormality. She states it has completely resolved. There are partially obscured stable isodense masses in the left breast. Benign-appearing round microcalcifications are seen in the left breast. There are no suspicious masses, suspicious cluster of microcalcifications, architectural distortion or secondary signs of malignancy identified in the left breast. BI/DIAG MAMM W/CAD, BILAT IMPRESSION: Benign appearing mammogram left breast. The patient should continue to perform monthly self-breast exams. If the palpable area does return, an ultrasound could be performed. Otherwise, the patient should r eturn in August 2025 for routine yearly screening mammography. OVERALL FINAL ASSESSMENT BI-RADS 2: BENIGN RECOMMENDATION: Routine annual follow-up in 1 Year. The patient should return in August 2025 for routine yearly screening mammography. Additional Recommendation none A letter with findings and recommendations will be mailed to the patient. Reading Location: [id number]
== END | disposition home or self-care (01) ==
PROVIDERS: PCP Student in an Organized Health Care Education/Training Program; Referring Provider Student in an Organized Health Care Education/Training Program; Visit Provider Student in an Organized Health Care Education/Training Program
DX: N63.20 Unspecified lump in the left breast, unspecified quadrant (principal)
CPT/HCPCS: 77062; 77066; G0279